=== PATIENT | female | born 1935 | race Caucasian/White ===

== ENCOUNTER → 2017-02-19 | Outpatient (CLI) | payer MEDICARE ==
[~2017-02-19] MED LIST: ACET325T9 PO; ALPR0.5T6 PO; ASPI-482 PO; CHOL200074 PO; LISI-338 PO; NITR0.4T22 SL; OMEP20TA8 PO; PRAV40TA PO; SPIR1TAB PO
--- NOTE | 2017-02-19 14:09 | RAD ---
DATE: 02/19/2017 EXAM: MAMMO CARLY SCREENING BILATERAL HISTORY: Routine screening COMPARISON: 02/04/2016 This study was interpreted with the benefit of Computerized Aided Detection (CAD). FINDINGS: Breast Density: HETERO The breast parenchyma Is heterogeneouslyy dense, which could reduce sensitivity of mammography. Breast parenchyma level C. There are no dominant suspicious masses, suspicious microcalcifications or evidence of architectural distortion. IMPRESSION: Benign findings BI-RADS CATEGORY: 2 BENIGN FINDING RECOMMENDED FOLLOW-UP: 12M 12 MONTH FOLLOW-UP PQRS compliance statement: Patient information was entered into a reminder system with a target due date 02/19/2018 for the next mammogram. Mammography is a sensitive method for finding small breast cancers, but it does not detect them all and is not a substitute for careful clinical examination. A negative mammogram does not negate a clinically suspicious finding and should not result in delay in biopsying a clinically suspicious abnormality. "Our facility is accredited by the [employer] Mammography [employer]."
--- NOTE | 2017-02-19 15:53 | RAD ---
Bone densitometry scan, 02/19/2017: History: Osteopenia The lumbar spine and right hip were examined utilizing a DEXA technique. The bone mineral density in the lumbar spine as measured from the L1-L4 levels is 1.07 g/sq cm. This yields a T score of -0.9 which is in the normal range. The T score has improved since 12/26/2014 at which time it was -1.5. The total T score at the right hip is -1.1, compatible with osteopenia. This is unchanged since and 12/26/2014 study. IMPRESSION: 1. The lumbar spine bone mineral density measurement has improved and is now in the normal range. 2. Unchanged minimal osteopenia at the right hip.
== END | disposition home or self-care (01) ==
LOC: MAMMO 08:49
PROVIDERS: ATTEND Physician Assistant Medical
DX: Z12.31 Encounter for screening mammogram for malignant neoplasm of breast (principal); M85.88 Other specified disorders of bone density and structure, other site
CPT/HCPCS: 77063; 77080; G0202; 77067

== ENCOUNTER → 2017-06-09 | Outpatient (CLI) | payer MEDICARE ==
[~2017-06-09] MED LIST changes: +IOHEXOL 300 MG/ML 75 ML VIAL. IV ONE
--- NOTE | 2017-06-09 11:57 | RAD ---
CT abdomen and pelvis with contrast Indication: right upper quad pain for a week, hx hernia repair Omni 300 75cc Omni 240 30cc. . Technique: Intravenous contrast is given. Oral contrast was given. Comparison:None available Exposure: One or more of the following individualized dose reduction techniques were utilized for this examination: 1. Automated exposure control 2. Adjustment of the mA and/or kV according to patient size 3. Use of iterative reconstruction technique. FINDINGS: Lower thorax: Coronary artery calcifications. Pneumoperitoneum:No gross pneumoperitoneum. Liver: Unremarkable Spleen: Unremarkable Pancreas: Unremarkable Adrenals:No evidence of mass. Kidneys:Unremarkable Gallbladder: No calcified stone Aorta: Abdominal aorta is nonaneurysmal Lymph nodes: Mildly enlarged retroperitoneal lymph nodes are identified, measuring up to 14 mm diameter. GI tract: Small hiatal hernia. No bowel obstruction. Colonic diverticulosis. No evidence of acute colitis. The lower rectum is not included on the exam. Appendix:Visualized, appears within normal limits. Ascites: No gross ascites. Urinary bladder: Not opacified, but no apparent abnormality. No evidence of pelvic mass. Bones: Degenerative changes of the spine. IMPRESSION: 1. Mild retroperitoneal lymph node enlargement is nonspecific. Inflammatory, infectious or neoplastic etiology can be considered. 2. Colonic diverticulosis, without evidence of an acute colitis. 3. Small hiatal hernia. Electronically signed by: Rakesh Jain MD (06/09/2017 11:53 AM) [facility]
== END | disposition home or self-care (01) ==
LOC: CT 10:06
PROVIDERS: ATTEND Physician Assistant Medical
DX: K57.30 Diverticulosis of large intestine without perforation or abscess without bleeding (principal); K44.9 Diaphragmatic hernia without obstruction or gangrene
CPT/HCPCS: 74177; Q9967

== ENCOUNTER → 2017-07-17 | Outpatient (CLI) | payer MEDICARE ==
[~2017-07-17] MED LIST changes: -IOHEXOL 300 MG/ML 75 ML VIAL. IV ONE
--- NOTE | 2017-07-17 10:24 | RAD ---
Right upper quadrant abdominal ultrasound, 07/17/2017: History: Right upper quadrant pain The gallbladder is within normal limits in size. There is no sonographic evidence of cholelithiasis. The gallbladder armstrong are not thickened. The common hepatic duct at the rabia hepatis level measures approximately 5 mm. More distally it measures 7 mm. This is not considered to be enlarged. No intrahepatic bile duct dilatation is seen. There is no evidence of a hepatic mass. The kidneys show no evidence of obstruction or mass. IMPRESSION: No significant gallbladder abnormality is detected.
== END | disposition home or self-care (01) ==
LOC: US 08:18
PROVIDERS: ATTEND Surgery
DX: R10.11 Right upper quadrant pain (principal)
CPT/HCPCS: 76705

== ENCOUNTER → 2018-02-05 | Outpatient (CLI) | payer MEDICARE ==
--- NOTE | 2018-02-05 11:27 | RAD ---
EXAM: CT Abdomen without IV contrast CLINICAL HISTORY: Abdominal Pain . Enlarged Lymph Nodes On Prior Study. COMPARISON: CT 06/09/2017 TECHNIQUE: Helical CT of the abdomen without intravenous contrast. Axial, coronal and sagittal reformatted images were generated. PQRS compliance statement - One or more of the following individualized dose reduction techniques were utilized for this study: 1. Automated exposure control 2. Adjustment of the mA and/or kV according to patient size 3. Use of iterative reconstruction technique FINDINGS: Lack of intravenous contrast limits evaluation of solid organs, vasculature, and lymph nodes. Lower chest: Small to moderate-sized hiatal hernia. Leads are seen within the right heart. A mitral annular calcifications are seen. Abdomen: Liver is not enlarged. No focal liver lesion gallbladder is normal. Spleen is unremarkable. Adrenal glands are normal. Kidneys are normal in size and shape. No definite renal lesion. No hydronephrosis. Visualized small and large bowel are normal in caliber. Colonic diverticula are seen. Minimal fat infiltration is seen about a few left lower quadrant diverticula today's exam only partially included on the [id number] (series 2 image [id number]). Duodenal diverticulum is noted. Prominent retroperitoneal lymph nodes are seen, grossly stable to borderline decreased in size. For example a 1.1 x 0.8 cm retroperitoneal lymph node measured 1.4 cm x 1 on prior. No ascites within the upper abdomen. Small fat-containing periumbilical hernia is seen. Atherosclerotic calcifications of aorta are seen. Bones: Degenerative changes of the spine are seen. Mild leftward curvature of the spine. No suspicious or aggressive osseous lesion is definitively identified. IMPRESSION: 1. A few mildly prominent retroperitoneal lymph nodes are seen, grossly stable to borderline decrease in size. These may be reactive or sequela of infectious/inflammatory process. Given lack of interval enlargement, neoplastic process is felt to be less likely. 2. Small to moderate hiatal hernia. 3. Colonic diverticulosis. Mild fat infiltration in the left lower quadrant about these diverticula is only partially seen, suspicious for colonic diverticulitis, this can be correlated with patient's symptoms. Electronically signed by: Kaiser Murillo MD (02/05/2018 11:24 AM) [id number]
== END | disposition home or self-care (01) ==
LOC: CT 09:29
PROVIDERS: ATTEND Physician Assistant Medical
DX: K44.9 Diaphragmatic hernia without obstruction or gangrene (principal); K57.30 Diverticulosis of large intestine without perforation or abscess without bleeding; K57.10 Diverticulosis of small intestine without perforation or abscess without bleeding; K42.9 Umbilical hernia without obstruction or gangrene; I70.0 Atherosclerosis of aorta; M43.8X6 Other specified deforming dorsopathies, lumbar region; M47.896 Other spondylosis, lumbar region
CPT/HCPCS: 74150

== ENCOUNTER → 2018-02-22 | Outpatient (CLI) | payer MEDICARE ==
--- NOTE | 2018-02-22 12:45 | RAD ---
DATE: 02/22/2018 EXAM: MAMMO CARLY SCREENING BILATERAL HISTORY: Routine screening COMPARISON: Previous mammogram from 2017 and 2016. This study was interpreted with the benefit of Computerized Aided Detection (CAD). FINDINGS: Breast Density: SCATTERED The breast parenchyma shows scattered fibroglandular densities. Breast parenchyma level B. The skin and nipples are within normal limits. Benign-appearing bilateral calcifications. No suspicious ossifications, spiculated mass or area of architectural distortion. Scattered nodular densities are seen in the bilateral breasts which are stable from previous mammogram. IMPRESSION: No mammographic evidence margins. Stable mammogram. BI-RADS CATEGORY: 2 BENIGN FINDING(S) RECOMMENDED FOLLOW-UP: 12M 12 MONTH FOLLOW-UP PQRS compliance statement: Patient information was entered into a reminder system with a target due date for the next mammogram. Mammography is a sensitive method for finding small breast cancers, but it does not detect them all and is not a substitute for careful clinical examination. A negative mammogram does not negate a clinically suspicious finding and should not result in delay in biopsying a clinically suspicious abnormality. "Our facility is accredited by the [employer] Mammography Program."
== END | disposition home or self-care (01) ==
LOC: MAMMO 08:34
PROVIDERS: ATTEND Physician Assistant Medical
DX: Z12.31 Encounter for screening mammogram for malignant neoplasm of breast (principal)
CPT/HCPCS: 77063; 77067

== ENCOUNTER → 2018-03-04 | Outpatient (CLI) | payer MEDICARE ==
[~2018-03-04] MED LIST changes: +IOHEXOL 240 MG/ML 50ML VIAL. ONE
[2018-03-04 10:03] LABS: CREATININE 1.1 mg/dL (0.6-1.0); GFR 47.8
[2018-03-04] MEDS: IOHEXOL 300 MG/ML 75 ML VIAL. IV ONE (10:45)
--- NOTE | 2018-03-04 13:23 | RAD ---
CT abdomen and pelvis with contrast 03/04/2018 CLINICAL INDICATION: Diffuse abdominal pain COMPARISON: CT abdomen and pelvis 02/05/2018, 05/30/2017 TECHNIQUE: Multiple CT images of the abdomen and pelvis were obtained following the intravenous ministration of 60 mL Omnipaque 300. *One or more of the following individualized dose reduction techniques were utilized for this examination: 1. Automated exposure control. 2. Adjustment of the mA and/or kV according to patient size. 3. Use of iterative reconstruction technique. FINDINGS: Heart size is normal partial visualization of a transvenous cardiac conduction leads. Mitral annular calcifications are noted. Because lung bases are clear. Minimal focal fatty infiltration the liver adjacent to the falciform. Gallbladder, spleen, adrenal glands and pancreas are unremarkable. There is malrotation of the right kidney with a tiny probable cyst. No hydronephrosis. Left kidney unremarkable. Abdominal aorta normal in caliber with moderate aortoiliac calcified atheromatous disease. Small hiatal hernia. Medial projecting 2nd portion duodenal diverticulum without diverticulitis. Appendix is normal in appearance. No bowel obstruction. Moderate distal colonic diverticulosis without acute diverticulitis. No abdominal free fluid or pneumoperitoneum. Prior ventral hernia repair with mesh. No retroperitoneal or mesenteric lymphadenopathy. Bladder decompressed. Prior hysterectomy with the vaginal cuff unremarkable. There are no destructive osseous lesions. Levoconvex lumbar scoliosis and multilevel lumbar spondylosis. IMPRESSION: 1. No CT evidence of acute abdominal or pelvic process. 2. Diverticulosis without diverticulitis. 3. Small hiatal hernia. Electronically signed by: Moo Mahmood MD (03/04/2018 1:20 PM) [id number]
== END | disposition home or self-care (01) ==
LOC: CT 09:24
PROVIDERS: ATTEND Internal Medicine Gastroenterology
DX: K44.9 Diaphragmatic hernia without obstruction or gangrene (principal); K57.10 Diverticulosis of small intestine without perforation or abscess without bleeding; K57.30 Diverticulosis of large intestine without perforation or abscess without bleeding; K76.0 Fatty (change of) liver, not elsewhere classified; I70.0 Atherosclerosis of aorta; M47.816 Spondylosis without myelopathy or radiculopathy, lumbar region; Q63.2 Ectopic kidney; M41.86 Other forms of scoliosis, lumbar region
CPT/HCPCS: 36415; 74177; 82565; 84520; Q9966; Q9967

== ENCOUNTER → 2018-03-30 | Outpatient (CLI) | payer MEDICARE ==
[~2018-03-30] MED LIST changes: +BARIUM SULFATE 60% 355 ML SUSP PO ONE; -IOHEXOL 240 MG/ML 50ML VIAL. ONE
--- NOTE | 2018-03-30 12:52 | RAD ---
Small bowel follow-through study 03/30/2018 CLINICAL HISTORY: Diffuse abdominal pain for 4 months. TECHNIQUE: A small bowel follow-through study was performed under radiographic control. No fluoroscopy was performed. No spot radiographs were obtained. FINDINGS: Comparison is made to a CT scan of the abdomen and pelvis dated 03/04/2018. An AP digital radiograph of the abdomen/pelvis was obtained as a civil estimator. This demonstrates a nonobstructive bowel gas pattern. A moderate amount stool is seen throughout the colon. Atherosclerotic calcification of the abdominal aorta and its branches is noted. Degenerative changes are seen involving the lower thoracic and throughout the lumbar spine along with both hips. Very mild S-shaped curvature of the thoracolumbar spine is seen. The mucosal pattern of the duodenum, jejunum, ileum and terminal ileum is within normal limits. The small bowel transit time is within normal limits. No small bowel wall thickening is seen. No extrinsic mass effect upon the small bowel is seen. IMPRESSION: Negative study. Electronically signed by: Dileep Reyes MD (03/30/2018 12:48 PM) [facility]
== END | disposition home or self-care (01) ==
LOC: RAD 07:44
PROVIDERS: ATTEND Internal Medicine Gastroenterology
DX: R10.84 Generalized abdominal pain (principal)
CPT/HCPCS: 74250

== ENCOUNTER → 2018-04-22 | Outpatient (CLI) | payer MEDICARE ==
[~2018-04-22] MED LIST changes: -BARIUM SULFATE 60% 355 ML SUSP PO ONE; +IOHEXOL 300 MG/ML 75 ML VIAL. IV ONE
--- NOTE | 2018-04-22 09:18 | RAD ---
Examination: CT angiography abdomen and pelvis HISTORY: History of continued epigastric pain, right lower quadrant abdominal pain COMPARISON: CT abdomen pelvis from 03/04/2018 TECHNIQUE: Axial CT angiographic images of the abdomen pelvis were performed with IV contrast. Coronal and sagittal 3-D MIP reformats are performed. Exposure: One or more of the following individualized dose reduction techniques were utilized for this examination: 1. Automated exposure control 2. Adjustment of the mA and/or kV according to patient size 3. Use of iterative reconstruction technique FINDINGS: Mild bibasilar lung atelectasis. No evidence of free air identified in the abdomen. The visualized liver, spleen, adrenals grossly appears unremarkable. The gallbladder is mildly distended. Small hiatal hernia is identified. The visualized pancreas grossly appears unremarkable. Small duodenal diverticulum identified. The small bowel is nondilated. Feces and gas noted in the colon. Multiple colonic diverticulosis identified. Moderate aortic atherosclerosis. The visualized celiac artery, superior mesenteric artery, inferior mesenteric artery are patent. The hepatic artery directly arises from the aorta with mild stenosis at its origin. The bilateral renal arteries are patent. The bilateral kidneys enhance symmetrically. The bilateral common iliac arteries are patent. The bilateral internal iliac arteries, external iliac arteries demonstrate moderate atherosclerotic calcifications. Moderate degenerative changes lumbar spine. Minimal anterolisthesis of L4 on L5. Multilevel disc bulges identified throughout the visualized thoracolumbar spine. IMPRESSION: 1. Moderate aortic atherosclerosis. 2. 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 3. Small hiatal hernia. 4. Multiple colonic diverticulosis. Electronically signed by: Lawrence Hurst MD (04/22/2018 9:14 AM) [place] [id number]
== END | disposition home or self-care (01) ==
LOC: CT 07:23
PROVIDERS: ATTEND Internal Medicine Gastroenterology
DX: K44.9 Diaphragmatic hernia without obstruction or gangrene (principal); K57.10 Diverticulosis of small intestine without perforation or abscess without bleeding; K57.30 Diverticulosis of large intestine without perforation or abscess without bleeding; K82.8 Other specified diseases of gallbladder; J98.11 Atelectasis; I70.0 Atherosclerosis of aorta; I70.8 Atherosclerosis of other arteries; M47.816 Spondylosis without myelopathy or radiculopathy, lumbar region; F41.9 Anxiety disorder, unspecified; K59.00 Constipation, unspecified
CPT/HCPCS: 74174; Q9967

== ENCOUNTER 2018-05-24 12:29 | Emergency (ER) | payer MEDICARE ==
[~2018-05-24] VITALS: Ht 157.5 cm; Wt 63.5 kg
[~2018-05-24 12:29] MED LIST changes: -IOHEXOL 300 MG/ML 75 ML VIAL. IV ONE
--- NOTE | 2018-05-24 12:38 | PHYS DOC ---
Past History Past Medical History: Anxiety, CAD, Hypertension Past Surgical History: Pacemaker Smoking: Non-smoker Alcohol Use: None Drug Use: None Adult General Chief Complaint Chief Complaint: MECHANICAL FALL HPI HPI Patient is a 82 year old female who presents with complaining of 2 falls today. Patient states she fell on ice on her driveway prior to arrival to ER and landed on her back of her head and then tried to get up and walk but had another fall on ice without loss of consciousness patient complaining of marked pain in her head and mother pain lumbar area without focal neuro deficit, nausea and vomiting, blurred vision, chest pain, extremity pain. Patient walked to emergency room by herself and does not want to have pain medication. Review of Systems Review of Systems Constitutional: Denies fever or chills [] Eyes: Denies change in visual acuity, redness, or eye pain [] HENT: Denies nasal congestion or sore throat [] Respiratory: Denies cough or shortness of breath [] Cardiovascular: No additional information not addressed in HPI [] GI: Denies abdominal pain, nausea, vomiting, bloody stools or diarrhea [] : Denies dysuria or hematuria [] Musculoskeletal: Reports back pain, denies joint pain [] Integument: Denies rash or skin lesions [] Neurologic: Reports headache, denies focal weakness or sensory changes [] Endocrine: Denies polyuria or polydipsia [] All other systems were reviewed and found to be within normal limits, except as documented in this note. Allergies Allergies Allergies Coded Allergies Type Severity Reaction Last Updated Verified carvedilol Allergy Intermediate 10/23/13 Yes cimetidine Allergy Intermediate 10/23/13 Yes digoxin Allergy Intermediate 10/23/13 Yes duloxetine Allergy Intermediate 10/23/13 Yes ezetimibe Allergy Intermediate 10/23/13 Yes hydrochlorothiazide Allergy Intermediate 10/23/13 Yes ibandronate sodium Allergy Intermediate 10/23/13 Yes isosorbide Allergy Intermediate Shortness of Air 10/23/13 Yes levofloxacin Allergy Intermediate 10/23/13 Yes levothyroxine sodium Allergy Intermediate 10/23/13 Yes meloxicam Allergy Intermediate 10/23/13 Yes metoclopramide Allergy Intermediate 10/23/13 Yes metoprolol Allergy Intermediate 10/23/13 Yes nebivolol Allergy Intermediate 10/23/13 Yes nitrofurantoin Allergy Intermediate 10/23/13 Yes propranolol Allergy Intermediate 10/23/13 Yes ramipril Allergy Intermediate 10/23/13 Yes rofecoxib Allergy Intermediate 10/23/13 Yes rosuvastatin Allergy Intermediate 10/23/13 Yes salsalate Allergy Intermediate 10/23/13 Yes sulfamethazine Allergy Intermediate Anaphylaxis 10/23/13 Yes sulfamethoxazole Allergy Intermediate 10/23/13 Yes tegaserod Allergy Intermediate 10/23/13 Yes ticagrelor Allergy Intermediate 10/23/13 Yes trimethoprim Allergy Intermediate 10/23/13 Yes verapamil Allergy Intermediate 10/23/13 Yes Physical Exam Physical Exam Constitutional: Well developed, well nourished, mild distress, non-toxic appearance. [] HENT: Normocephalic, contusion of occipital scalp, bilateral external ears normal, oropharynx moist, no oral exudates, nose normal. [] Eyes: PERRLA, EOMI, conjunctiva normal, no discharge. [] Neck: Normal range of motion, no tenderness, supple, no stridor. [] Cardiovascular:Heart rate regular rhythm, no murmur [] Lungs & Thorax: Bilateral breath sounds clear to auscultation [] Abdomen: Bowel sounds normal, soft, no tenderness, no masses, no pulsatile masses. [] Skin: Warm, dry, no erythema, no rash. [] Back: No midline tenderness, no contusion, painful range of motion, no CVA tenderness. [] Extremities: No tenderness, no cyanosis, no clubbing, ROM intact, no edema. [] Neurologic: Alert and oriented X 3, normal motor function, normal sensory function, no focal deficits noted. [] Psychologic: Affect normal, judgement normal, mood normal. [] EKG EKG [] Radiology/Procedures Radiology/Procedures [address] [id number] IMAGING REPORT Signed PATIENT: ISABEL HERNANDEZ ACCOUNT: [id number] : 1935 LOCATION: ER AGE: 82 SEX: F EXAM STATUS: REG ER ORD. PHYSICIAN: PASCUAL BAZAN MD REASON: fall on ice PROCEDURE: CT HEAD AND CERVICAL SPINE WO PQRS Compliance Statement: One or more of the following individualized dose reduction techniques were utilized for this examination: 1. Automated exposure control 2. Adjustment of the mA and/or kV according to patient size 3. Use of iterative reconstruction technique CT head and cervical spine without contrast 05/24/2018 1:[address] lumbar spine without contrast INDICATION: Fall on ice COMPARISON: Lumbar spine radiograph May 24, 2015 TECHNIQUE: Multiple axial CT images of the head were obtained from skull base through the vertex without intravenous contrast. Multiple axial CT images of the cervical spine were obtained without intravenous contrast. Coronal and sagittal reformats are provided. FINDINGS: Head: Ventricles, sulci and basal cisterns are within normal limits. There is no hydrocephalus. Betancourt-white matter differentiation is normal. There is no acute intracranial hemorrhage. There is no mass, mass effect or midline shift. Posterior fossa is normal in appearance. Visualized portions of the orbits are normal within exception of bilateral lens replacement. Paranasal sinuses are well aerated. Mastoid air cells are well aerated. Scalp and calvaria are normal. Cervical spine: There is straightening of the normal cervical lordosis without significant spondylolisthesis. Skull base is intact. Craniocervical junction is normal in appearance. Atlantoaxial articulation is normal. Vertebral body heights are maintained without evidence for acute fracture. There is moderate disc height loss at C5-C6 and C6-C7 with endplate irregularity, remodeling and moderate anterior marginal osteophytosis. At C5-C6, there is a posterior disc osteophyte complex with mild facet arthropathy and moderate uncovertebral joint disease resulting in mild bilateral neuroforaminal stenosis. At C6-C7, there is a posterior disc osteophyte complex with moderate left facet arthropathy, moderate uncovertebral joint disease and mild to moderate bilateral neuroforaminal stenosis. There is mild spinal canal stenosis. There is no prevertebral soft tissue swelling. Thyroid gland is normal in appearance. Visualized portions of the lung apices are normal without evidence for suspicious pulmonary nodule or infiltrate. Lumbar spine: Alignment of the lumbar spine is normal. Vertebral body heights are maintained. No definite compression fracture is identified. There is mild disc height loss at L1-L2 with moderate intramarginal osteophytosis and endplate remodeling. There is moderate disc height loss at L5-S1 vacuum disc phenomenon and moderate anterior marginal osteophytosis. There is moderate facet arthropathy lower lumbar spine. Transverse processes are intact. Visualized portions of the sacrum appear intact. There is levoconvex curvature of the lumbar spine. Abdominal aorta is normal in caliber with moderate calcified atheromatous plaque. There is a small duodenal diverticulum. Small extrarenal pelvis is identified on the right. 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 L1-L2: There is a mild disc bulge. Mild facet arthropathy. No significant neuroforaminal stenosis. Mild spinal canal stenosis. L2-L3: There is a moderate disc bulge. There is moderate facet arthropathy ligamentum flavum infolding. There is mild bilateral neuroforaminal stenosis. Mild to moderate spinal canal stenosis. L3-L4: There is a moderate disc bulge with right central disc protrusion. There is moderate facet arthropathy ligamentum flavum infolding. There is mild bilateral neuroforaminal stenosis. Mild spinal canal stenosis. L4-L5: There is a moderate disc bulge. There is moderate facet arthropathy, right greater than left. There is mild bilateral neuroforaminal stenosis. Mild spinal canal stenosis. L5-S1: There is a mild disc bulge. There is severe left and moderate facet arthropathy. There is severe left neuroforaminal stenosis. No spinal canal stenosis. IMPRESSION: 1. No acute intracranial hemorrhage. 2. No acute fracture or malalignment of the cervical spine. Mild cervical spondylosis. 3. No acute fracture of the lumbar spine. Moderate degenerative changes of the lumbar spine are present, as described in detail above. Electronically signed by: Alanna Tavera MD (05/24/2018 1:47 PM) [facility] DICTATED AND SIGNED BY: ALANNA TAVERA MD DATE: 05/24/18 [id number] CC: PASCUAL BAZAN MD; GARFIELD BURRELL ~ Course & Med Decision Making Course & Med Decision Making Pertinent Imaging studies reviewed. (See chart for details) Evaluation of patient in ER showed 82-year-old female patient with a mechanical fall on ice with complaining of pain in her lower back and head. Patient had unremarkable CT of head, cervical spine, lumbosacral spine and did not want pain medication in ER. Patient states she plans to take Tylenol and doesn't want a prescription for pain medication at home. Patient was advised to apply ice on the affected area and follow up with her primary care physician. Dragon Disclaimer Dragon Disclaimer This electronic medical record was generated, in whole or in part, using a voice recognition dictation system. Departure Departure: Impression: Primary Impression: Head injury due to trauma Additional Impressions: Acute lumbosacral myofascial strain Fall from slipping on ice Disposition: 01 HOME, SELF-CARE (at 1430) Condition: IMPROVED Referrals: GARFIELD BURRELL (PCP) Patient Instructions: Head Injury, Adult, Lumbosacral Strain Additional Instructions: Apply ice on the affected area Follow-up with your primary care physician in 3-5 days Return to ER if not getting better Take [id number] Tylenol as needed for pain Problem Qualifiers PASCUAL BAZAN MD May 24, 2018 12:38
--- NOTE | 2018-05-24 13:52 | RAD ---
PQRS Compliance Statement: One or more of the following individualized dose reduction techniques were utilized for this examination: 1. Automated exposure control 2. Adjustment of the mA and/or kV according to patient size 3. Use of iterative reconstruction technique CT head and cervical spine without contrast 05/24/2018 1:[address] lumbar spine without contrast INDICATION: Fall on ice COMPARISON: Lumbar spine radiograph May 24, 2015 TECHNIQUE: Multiple axial CT images of the head were obtained from skull base through the vertex without intravenous contrast. Multiple axial CT images of the cervical spine were obtained without intravenous contrast. Coronal and sagittal reformats are provided. FINDINGS: Head: Ventricles, sulci and basal cisterns are within normal limits. There is no hydrocephalus. Betancourt-white matter differentiation is normal. There is no acute intracranial hemorrhage. There is no mass, mass effect or midline shift. Posterior fossa is normal in appearance. Visualized portions of the orbits are normal within exception of bilateral lens replacement. Paranasal sinuses are well aerated. Mastoid air cells are well aerated. Scalp and calvaria are normal. Cervical spine: There is straightening of the normal cervical lordosis without significant spondylolisthesis. Skull base is intact. Craniocervical junction is normal in appearance. Atlantoaxial articulation is normal. Vertebral body heights are maintained without evidence for acute fracture. There is moderate disc height loss at C5-C6 and C6-C7 with endplate irregularity, remodeling and moderate anterior marginal osteophytosis. At C5-C6, there is a posterior disc osteophyte complex with mild facet arthropathy and moderate uncovertebral joint disease resulting in mild bilateral neuroforaminal stenosis. At C6-C7, there is a posterior disc osteophyte complex with moderate left facet arthropathy, moderate uncovertebral joint disease and mild to moderate bilateral neuroforaminal stenosis. There is mild spinal canal stenosis. There is no prevertebral soft tissue swelling. Thyroid gland is normal in appearance. Visualized portions of the lung apices are normal without evidence for suspicious pulmonary nodule or infiltrate. Lumbar spine: Alignment of the lumbar spine is normal. Vertebral body heights are maintained. No definite compression fracture is identified. There is mild disc height loss at L1-L2 with moderate intramarginal osteophytosis and endplate remodeling. There is moderate disc height loss at L5-S1 vacuum disc phenomenon and moderate anterior marginal osteophytosis. There is moderate facet arthropathy lower lumbar spine. Transverse processes are intact. Visualized portions of the sacrum appear intact. There is levoconvex curvature of the lumbar spine. Abdominal aorta is normal in caliber with moderate calcified atheromatous plaque. There is a small duodenal diverticulum. Small extrarenal pelvis is identified on the right. 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 L1-L2: There is a mild disc bulge. Mild facet arthropathy. No significant neuroforaminal stenosis. Mild spinal canal stenosis. L2-L3: There is a moderate disc bulge. There is moderate facet arthropathy ligamentum flavum infolding. There is mild bilateral neuroforaminal stenosis. Mild to moderate spinal canal stenosis. L3-L4: There is a moderate disc bulge with right central disc protrusion. There is moderate facet arthropathy ligamentum flavum infolding. There is mild bilateral neuroforaminal stenosis. Mild spinal canal stenosis. L4-L5: There is a moderate disc bulge. There is moderate facet arthropathy, right greater than left. There is mild bilateral neuroforaminal stenosis. Mild spinal canal stenosis. L5-S1: There is a mild disc bulge. There is severe left and moderate facet arthropathy. There is severe left neuroforaminal stenosis. No spinal canal stenosis. IMPRESSION: 1. No acute intracranial hemorrhage. 2. No acute fracture or malalignment of the cervical spine. Mild cervical spondylosis. 3. No acute fracture of the lumbar spine. Moderate degenerative changes of the lumbar spine are present, as described in detail above. Electronically signed by: Sachi Rain MD (05/24/2018 1:47 PM) [facility]
[2018-05-24 14:25] VITALS: BP 106/54
== END 2018-05-24 14:37 | disposition home or self-care (01) ==
LOC: ER 12:29
DX: S39.012A Strain of muscle, fascia and tendon of lower back, initial encounter (principal); S00.03XA Contusion of scalp, initial encounter; F41.9 Anxiety disorder, unspecified; I10 Essential (primary) hypertension; I25.10 Atherosclerotic heart disease of native coronary artery without angina pectoris; Z95.0 Presence of cardiac pacemaker; Z88.8 Allergy status to other drugs, medicaments and biological substances; Z88.1 Allergy status to other antibiotic agents; W00.0XXA Fall on same level due to ice and snow, initial encounter; Y93.89 Activity, other specified; Y92.89 Other specified places as the place of occurrence of the external cause; Y99.8 Other external cause status
CPT/HCPCS: 70450; 72125; 72131; 99284-25

== ENCOUNTER → 2018-07-05 | Outpatient (CLI) | payer MEDICARE ==
--- NOTE | 2018-07-05 11:04 | RAD ---
CT head without contrast dated 07/05/2018. Comparison made to 05/24/2018. Clinical data indication: Altered level of consciousness. TECHNIQUE: Per contiguous axial imaging the head was performed from skull base to vertex. No contrast administered. One or more of the following individualized dose reduction techniques were utilized for this examination: 1. Automated exposure control 2. Adjustment of the mA and/or kV according to patient size 3. Use of iterative reconstruction technique FINDINGS: Ventricles and sulci are mildly prominent for age. No midline shift or mass effect. Minimal patchy low density in the deep/subcortical periventricular white matter. No hemorrhage or extra axial collection. Posterior fossa and brainstem unremarkable. Visualized paranasal sinuses and mastoid air cells are clear. No apparent calvarial abnormality. IMPRESSION: 1. No evidence of acute intracranial hemorrhage or mass. 2. Mild chronic small vessel ischemic changes and atrophy. Electronically signed by: Rakesh Brand MD (07/05/2018 11:01 AM) [facility]
== END | disposition home or self-care (01) ==
LOC: CT 10:11
PROVIDERS: ATTEND Registered Nurse
DX: I67.82 Cerebral ischemia (principal); G31.89 Other specified degenerative diseases of nervous system
CPT/HCPCS: 70450

== ENCOUNTER 2018-10-18 07:44 | Observation (INO) | payer MEDICARE ==
[~2018-10-18] VITALS: Ht 157.5 cm; Wt 62.8 kg
[2018-10-18] MEDS ORDERED: IV NORMAL SALINE 1,000ML 1,000 ML IV SCH (07:50)
--- NOTE | 2018-10-18 08:16 | PHYS DOC ---
Past History Past Medical History: Anxiety, CAD, Cancer, Hypertension, VT, Other Past Surgical History: Coronary Bypass Surgery, Hysterectomy, Pacemaker, Tonsillectomy Smoking: Non-smoker Alcohol Use: None Drug Use: None Adult General Chief Complaint Chief Complaint: chest pain HPI HPI Patient is a 83 year old female who presents with complaint of chest pain. Patient states that she has had recurrent chest pain over the past 3 days. Notes that her current episode started at 0430 this morning. States that awoke her from sleep. Notes pain that is substernal and pressure-like with slight radiation leftward underneath the left breast. Denies shortness of breath, fever, or diaphoresis. Patient has history of coronary artery disease. States that she had a stress test over 2 years ago[address] with Dr[address] Vasquez for cardiology. He states she took 1 baby aspirin this morning and has taken nitroglycerin but states that this has not helped with her pain. Currently rates her pain as 5 out of 10. Review of Systems Review of Systems Constitutional: Denies fever or chills [] Eyes: Denies change in visual acuity, redness, or eye pain [] HENT: Denies nasal congestion or sore throat [] Respiratory: Denies cough or shortness of breath [] Cardiovascular: Chest pain, denies edema[] GI: Denies abdominal pain, nausea, vomiting, bloody stools or diarrhea [] : Denies dysuria or hematuria [] Musculoskeletal: Denies back pain or joint pain [] Integument: Denies rash or skin lesions [] Neurologic: Denies headache, focal weakness or sensory changes [] All other systems were reviewed and found to be within normal limits, except as documented in this note. Current Medications Current Medications Current Medications Medications (Trade) Dose Ordered Sig/[facility] Start Time Stop Time Status Last Admin Dose Admin Aspirin (Children'S Aspirin) 243 mg 1X ONCE 10/18/18 08:20 10/18/18 08:21 Sodium Chloride 1,000 ml @ 125 mls/hr Q8H 10/18/18 07:50 10/18/18 15:49 Allergies Allergies Allergies Coded Allergies Type Severity Reaction Last Updated Verified carvedilol Allergy Intermediate 10/23/13 Yes cimetidine Allergy Intermediate 10/23/13 Yes digoxin Allergy Intermediate 10/23/13 Yes duloxetine Allergy Intermediate 10/23/13 Yes ezetimibe Allergy Intermediate 10/23/13 Yes hydrochlorothiazide Allergy Intermediate 10/23/13 Yes ibandronate sodium Allergy Intermediate 10/23/13 Yes isosorbide Allergy Intermediate Shortness of Air 10/23/13 Yes levofloxacin Allergy Intermediate 10/23/13 Yes levothyroxine sodium Allergy Intermediate 10/23/13 Yes meloxicam Allergy Intermediate 10/23/13 Yes metoclopramide Allergy Intermediate 10/23/13 Yes metoprolol Allergy Intermediate 10/23/13 Yes nebivolol Allergy Intermediate 10/23/13 Yes nitrofurantoin Allergy Intermediate 10/23/13 Yes propranolol Allergy Intermediate 10/23/13 Yes ramipril Allergy Intermediate 10/23/13 Yes rofecoxib Allergy Intermediate 10/23/13 Yes rosuvastatin Allergy Intermediate 10/23/13 Yes salsalate Allergy Intermediate 10/23/13 Yes sulfamethazine Allergy Intermediate Anaphylaxis 10/23/13 Yes sulfamethoxazole Allergy Intermediate 10/23/13 Yes tegaserod Allergy Intermediate 10/23/13 Yes ticagrelor Allergy Intermediate 10/23/13 Yes trimethoprim Allergy Intermediate 10/23/13 Yes verapamil Allergy Intermediate 10/23/13 Yes Physical Exam Physical Exam Constitutional: Alert, afebrile, appears in mild discomfort. [] HENT: Normocephalic, atraumatic, bilateral external ears normal, oropharynx moist, no oral exudates, nose normal. [] Eyes: PERRLA, EOMI, conjunctiva normal, no discharge. [] Neck: Normal range of motion, no tenderness, supple, no stridor. [] Cardiovascular:Heart rate regular rhythm, no murmur [] Lungs & Thorax: Bilateral breath sounds clear to auscultation [] Abdomen: Bowel sounds normal, soft, no tenderness, no masses, no pulsatile masses. [] Skin: Warm, dry, no erythema, no rash. [] Back: No tenderness, no CVA tenderness. [] Extremities: No tenderness, no cyanosis, no clubbing, ROM intact, no edema. [] Neurologic: Alert and oriented X 3, normal motor function, normal sensory function, no focal deficits noted. [] Current Patient Data Vital Signs Vital Signs Date Time Temp Pulse Resp B/P (MAP) Pulse Ox O2 Delivery O2 Flow Rate FiO2 10/18/18 08:14 98.1 70 16 94 Room Air Lab Results Laboratory Tests Test 10/18/18 08:11 White Blood Count 6.7 x10^3/uL Red Blood Count 4.50 x10^6/uL Hemoglobin 13.0 g/dL Hematocrit 38.1 % Mean Corpuscular Volume 85 fL Mean Corpuscular Hemoglobin 29 pg Mean Corpuscular Hemoglobin Concent 34 g/dL Red Cell Distribution Width 14.4 % Platelet Count 255 x10^3/uL Neutrophils (%) (Auto) 58 % Lymphocytes (%) (Auto) 26 % Monocytes (%) (Auto) 10 % Eosinophils (%) (Auto) 5 % Basophils (%) (Auto) 1 % Neutrophils # (Auto) 3.9 x10^3uL Lymphocytes # (Auto) 1.7 x10^3/uL Monocytes # (Auto) 0.7 x10^3/uL Eosinophils # (Auto) 0.4 x10^3/uL Basophils # (Auto) 0.1 x10^3/uL Sodium Level 139 mmol/L Potassium Level 4.1 mmol/L Chloride Level 102 mmol/L Carbon Dioxide Level 27 mmol/L Anion Gap 10 Blood Urea Nitrogen 21 mg/dL Creatinine 1.1 mg/dL Estimated GFR (Cockcroft-Gault) 47.7 BUN/Creatinine Ratio 19 Glucose Level 108 mg/dL Calcium Level 10.1 mg/dL Magnesium Level 1.7 mg/dL Total Bilirubin 0.5 mg/dL Aspartate Amino Transf (AST/SGOT) 21 U/L Alanine Aminotransferase (ALT/SGPT) 21 U/L Alkaline Phosphatase 109 U/L Creatine Kinase 65 U/L Creatine Kinase MB (Mass) 0.8 ng/mL Creatine Kinase MB Relative Index 1.2 % Troponin I Quantitative < 0.017 ng/mL Total Protein 7.5 g/dL Albumin 4.0 g/dL Albumin/Globulin Ratio 1.1 Current Medications Medications (Trade) Dose Ordered Sig/Jing Route PRN Reason Start Time Stop Time Status Last Admin Dose Admin Aspirin (Children'S Aspirin) 243 mg 1X ONCE PO 10/18/18 08:20 10/18/18 08:21 DC Sodium Chloride 1,000 ml @ 125 mls/hr Q8H IV 10/18/18 07:50 10/18/18 15:49 EKG EKG Interpreted by me: Heart rate 72, atrially paced rhythm, normal axis, no acute ST/T-wave abnormalities present[] Radiology/Procedures Radiology/Procedures [address] [id number] IMAGING REPORT Signed PATIENT: ISABEL HERNANDEZ ACCOUNT: [id number] : 1935 LOCATION: ER AGE: 83 SEX: F EXAM STATUS: REG ER ORD. PHYSICIAN: JAYLA RODRIGUEZ MD REASON: chest pain PROCEDURE: PORTABLE CHEST 1V Examination: PORTABLE CHEST 1V History: Chest pain Comparison/Correlation: 10/23/2013 AP view of the chest Findings: Portable frontal view chest was obtained. Dual-lead left-sided pacemaker is present. Heart size is borderline enlarged similar to the prior exam. Pulmonary vasculature is mildly congested. No pneumothorax. No definite effusion. Small hiatal hernia is present. Impression: No active disease. Small hiatal hernia. Electronically signed by: Rip Fox MD (10/18/2018 8:41 AM) [id number] DICTATED AND SIGNED BY: RIP FOX MD DATE: 10/18/18 0841 CC: JAYLA RODRIGUEZ MD; GARFIELD BURRELL ~ [] Course & Med Decision Making Course & Med Decision Making Pertinent Labs and Imaging studies reviewed. (See chart for details) HEART score is 5, placing patient in moderate risk category for major acute cardiac event. Admission for noninvasive testing indicated at this time. The patient was given 243 mg of oral aspirin to complete a full dose given she took a baby aspirin prior to arrival. I spoke with Dr. Moore who will accept care of patient in hospital. I also spoke with TREY Ramirez for the cardiology service, to notify them of consultation on patient in hospital.[] Dragon Disclaimer Dragon Disclaimer This electronic medical record was generated, in whole or in part, using a voice recognition dictation system. Departure Departure: Impression: Primary Impression: Chest pain Additional Impressions: Coronary artery disease Hypomagnesemia Disposition: ADMITTED INPATIENT Admitting Physician: Eduardo Moore Condition: STABLE Referrals: GARFIELD BURRELL (PCP) Problem Qualifiers Primary Impression: Chest pain Chest pain type: unspecified Qualified Codes: R07.9 - Chest pain, unspecified Additional Impressions: Coronary artery disease Coronary Disease-Associated Artery/Lesion type: unspecified vessel or lesion type [place] vs. transplanted heart: [place] heart Associated angina: with unspecified angina Qualified Codes: I25.119 - Atherosclerotic heart disease of [place] coronary artery with unspecified angina pectoris JAYLA RODRIGUEZ MD Oct 18, 2018 08:16
[2018-10-18] MEDS ORDERED: ASPIRIN 81 MG TAB.CHEW PO ONE (08:20)
[2018-10-18 08:25] LABS: BASO # 0.1 x10^3/uL (0.0-0.2); BASO % 1 % (0-3); EOS # 0.4 x10^3/uL (0.0-0.7); EOS % 5 % (0-3); HEMATOCRIT 38.1 % (36.0-47.0); LYMPH # 1.7 x10^3/uL (1.0-4.8); LYMPH % 26 % (24-48); MEAN CORPUSCULAR HEMOGLOBIN 29 pg (25-35); MEAN CORPUSCULAR HGB CONC 34 g/dL (31-37); MEAN CORPUSCULAR VOLUME 85 fL (79-100); MONO # 0.7 x10^3/uL (0.0-1.1); MONO % 10 % (0-9); NEUT # 3.9 x10^3uL (1.8-7.7); NEUT % 58 % (31-73); PLATELET COUNT 255 x10^3/uL (140-400); RED CELL DISTRIBUTION WIDTH 14.4 % (11.5-14.5); WHITE BLOOD COUNT 6.7 x10^3/uL (4.0-11.0)
--- NOTE | 2018-10-18 08:44 | RAD ---
Examination: PORTABLE CHEST 1V History: Chest pain Comparison/Correlation: 10/23/2013 AP view of the chest Findings: Portable frontal view chest was obtained. Dual-lead left-sided pacemaker is present. Heart size is borderline enlarged similar to the prior exam. Pulmonary vasculature is mildly congested. No pneumothorax. No definite effusion. Small hiatal hernia is present. Impression: No active disease. Small hiatal hernia. Electronically signed by: Rip Blas MD (10/18/2018 8:41 AM) [id number]
[2018-10-18 08:49] LABS: ALBUMIN/GLOBULIN RATIO 1.1 (1.0-1.7); CALCIUM 10.1 mg/dL (8.5-10.1); CREATININE 1.1 mg/dL (0.6-1.0); GFR 47.7; MAGNESIUM 1.7 mg/dL (1.8-2.4); POTASSIUM 4.1 mmol/L (3.5-5.1); TOTAL BILIRUBIN 0.5 mg/dL (0.2-1.0); TOTAL PROTEIN 7.5 g/dL (6.4-8.2)
[2018-10-18] MEDS ORDERED: ONDANSETRON PF 4 MG/2 ML VIAL. IV PRN (09:15)
[2018-10-18] MEDS ORDERED: ACETAMINOPHEN 325 MG TABLET PO PRN ×2 (09:15→15:45)
[2018-10-18] MEDS ORDERED: MAGNESIUM SULFATE 1GM 100 ML IV ONE (09:30)
[2018-10-18 10:31] VITALS: BP 148/78
[2018-10-18] MEDS ORDERED: LINA145C PO (11:16)
[2018-10-18] MEDS ORDERED: CALCIUM + MAGNESIUM PO (11:16)
[2018-10-18] MEDS ORDERED: DICL100G18 TP (11:16)
[2018-10-18] MEDS ORDERED: CARV3.12 PO (11:16)
[2018-10-18] MEDS ORDERED: ASCO500T3 PO (11:16)
[2018-10-18] MEDS ORDERED: TRAM50TA PO (11:16)
[2018-10-18] MEDS ORDERED: NITROGLYCERIN PATCH TOP (11:16)
[2018-10-18] MEDS ORDERED: BIMA2.5D EACHEYE (11:16)
[2018-10-18] MEDS ORDERED: TIZA4TAB PO (11:16)
[2018-10-18] MEDS ORDERED: CRESTOR20 MG PO (11:16)
[2018-10-18] MEDS ORDERED: CYAN10005 PO (11:16)
[2018-10-18] MEDS ORDERED: CITA20TA6 PO (11:16)
[2018-10-18] MEDS: IV NORMAL SALINE 1,000ML 1,000 ML IV SCH ×2 (12:40→17:08)
[2018-10-18] MEDS ORDERED: MAALOX:LIDO:APAP 6:2:1 ORAL SUSPENSION 180 ML BOTTLE. PO PRN (14:45)
[2018-10-18] MEDS ORDERED: PANTOPRAZOLE 40 MG TABLET. PO ONE (14:45)
[2018-10-18 15:32] VITALS: BP 120/72
[2018-10-18] MEDS ORDERED: traMADol 50 MG TABLET PO PRN (15:45)
[2018-10-18] MEDS ORDERED: tiZANidine 4 MG TABLET. PO PRN (15:45)
[2018-10-18] MEDS ORDERED: NITROGLYCERIN 0.4 MG TOP PRN (15:45)
[2018-10-18] MEDS ORDERED: NITROGLYCERIN SUBLINGUAL 0.4 MG BOTTLE OF 25. SL PRN (15:45)
[2018-10-18] MEDS ORDERED: DICLOFENAC SODIUM 1% TOPICAL GEL 100GM TUBE. TP PRN (15:45)
[2018-10-18] MEDS ORDERED: LINACLOTIDE 145 MCG CAPSULE. PO PRN (15:45)
[2018-10-18] MEDS ORDERED: ALPRAZolam 0.5 MG TABLET PO PRN (16:00)
--- NOTE | 2018-10-18 17:12 | CARD ---
MR#: [id number] Date of Study: 10/18/2018 Ordering Physician: HERI CONWAY, Referring Physician: SHELLIE MCWILLIAMS Tech: Melba Vidales RDCS APPROVED REPORT EXAM: Two-dimensional and M-mode echocardiogram with Doppler and color Doppler. Other Information Quality : Good INDICATION Cardiac Disease: CAD Chest Pain Pacemaker 2D DIMENSIONS Left Atrium(2D)4.3 (1.6-4.0cm)IVSd1.2 (0.7-1.1cm) Aortic Root(2D)2.7 (2.0-3.7cm)LVDd4.6 (3.9-5.9cm) LVOT Diameter2.0 (1.8-2.4cm)PWd1.2 (0.7-1.1cm) LVDs3.5 (2.5-4.0cm)FS (%) 16.8 % SV35.0 mlLVEF(%)35.2 (>50%) Aortic Valve AoV Peak Thomas.185.4cm/sAoV VTI39.3cm AO Peak GR.13.7mmHgAO Mean GR.8mmHg JANET (VTI)1.61cm2 Mitral Valve MV E Ahokkipm093.8cm/sMV DECEL [id number] MV A Bvmzlbdb22.3cm/sE/A Ratio1.2 Tricuspid Valve TR P. Wnijvtuf472hi/sRAP [id number] TR Peak Gr.42aqToVADT22wlIn LEFT VENTRICLE The left ventricle is normal size. There is mild concentric left ventricular hypertrophy. The left ve ntricular systolic function is normal and the ejection fraction is within normal range. The Ejection Fraction is 55%. There is normal LV segmental wall motion. Transmitral Doppler flow pattern is Grade I-abnormal relaxation pattern. RIGHT VENTRICLE The right ventricle is normal size. The right ventricular systolic function is normal. There is a pac emaker lead in the right ventricle. ATRIA The left atrium is mildly dilated. The right atrium size is normal. A pacemaker is seen in the right atrium consistent with history. The interatrial septum is intact with no evidence for an atrial septa l defect or patent foramen ovale as noted on 2-D or Doppler imaging. AORTIC VALVE Not well visualized. Doppler and Color Flow revealed no significant aortic regurgitation. There is no significant aortic valvular stenosis. MITRAL VALVE The mitral valve is calcified but opens well. Mitral annular calcification is mild. There is no evide nce of mitral valve prolapse. There is no mitral valve stenosis. Doppler and Color-flow revealed trac e mitral regurgitation. TRICUSPID VALVE The tricuspid valve is normal in structure and function. Doppler and Color Flow revealed trace to mil d tricuspid regurgitation. There is mild pulmonary hypertension. The PA pressure was estimated at 35 mmHg. There is no tricuspid valve stenosis. PULMONIC VALVE The pulmonic valve is not well visualized. Doppler and Color Flow revealed no pulmonic valvular regur gitation. There is no pulmonic valvular stenosis. GREAT VESSELS The aortic root is normal in size. The ascending aorta is normal in size. The IVC is dilated and angel apses > 50%. PERICARDIAL EFFUSION There is no evidence of significant pericardial effusion. Critical Notification Critical Value: No <Conclusion> The left ventricular systolic function is normal and the ejection fraction is within normal range. Th e Ejection Fraction is 55%. There is normal LV segmental wall motion. There is a pacemaker lead in the right ventricle. Technically difficult study Signed by : Heri Conway, Electronically Approved : 10/18/2018 17:11:55
[2018-10-18] MEDS: CARVEDILOL 3.125 MG TABLET PO SCH (17:17)
--- NOTE | 2018-10-18 17:23 | PDOC ---
PROVIDER NOTE PROVIDER NOTE PROVIDER NOTE CARDIOLOGY CONSULTATION NOTE: full note dicated. HERI CONWAY MD Oct 18, 2018 17:23
--- NOTE | 2018-10-18 17:47 | CONS ---
DATE OF CONSULTATION: 10/18/2018 REASON FOR CONSULTATION: Chest pain. HISTORY OF PRESENT ILLNESS: The patient is a pleasant 83-year-old woman with past medical history as noted below, presents to the hospital in the setting of chest pain. She apparently had been having chest pain for the last 2-3 days and was trying to take some nitroglycerin, which did not relieve her chest pain and therefore, she presented to the ER. Upon arrival to the ER, blood pressure and other vital signs were unremarkable. Her EKG was unremarkable and she was admitted for further evaluation and treatment. She reports improvement of chest pain after being given some PPI and lidocaine and Maalox by mouth. She denies any recent discomfort in her chest such as angina with exertion, dyspnea, orthopnea or PND. No syncope or palpitations. She reports compliance with her medications including carvedilol, rosuvastatin and spironolactone/hydrochlorothiazide. PAST MEDICAL HISTORY: 1. Coronary artery disease, status post 7 stents, last being in 2011. 2. Hypertension. 3. Dyslipidemia. 4. Chronic gastroesophageal reflux disease history with esophageal stricture, status post dilation. SOCIAL HISTORY: The patient lives by herself. Denies any alcohol, tobacco or illicit drug use. ALLERGIES: MULTIPLE MEDICATIONS. Please see chart. CURRENT CARDIAC MEDICATIONS: Notable for carvedilol, rosuvastatin, aspirin and spironolactone/hydrochlorothiazide. Please see medication administration record for full details. FAMILY HISTORY: Noncontributory. REVIEW OF SYSTEMS: Negative for 10 out of 14 systems reviewed, unless otherwise mentioned above in HPI. PHYSICAL EXAMINATION: VITAL SIGNS: Afebrile, blood pressure 131/58, 96% on room air, respiratory rate 16, pulse 72. GENERAL: She is alert and oriented, no acute distress. HEAD AND NECK: Unremarkable. CARDIAC: Regular rate and rhythm with a soft 3/6 systolic murmur consistent with aortic sclerosis. LUNGS: Clear to auscultation bilaterally anteriorly. NEUROLOGIC: No focal deficits. MUSCULOSKELETAL: No trauma. ABDOMEN: Soft, nontender, nondistended. EXTREMITIES: No clubbing, cyanosis or edema. DIAGNOSTIC STUDIES: Hemoglobin, platelets within normal limits. Troponin negative x 3. EKG is unremarkable. Echocardiogram demonstrates normal LV systolic function without any significant without any significant wall motion abnormalities. IMPRESSION: 1. Atypical chest pain: Differential diagnosis is broad given her prior history of coronary artery disease, but at this present time given her negative EKG, normal enzymes and improvement in pain with lidocaine and Maalox, this is more likely to be gastroesophageal rather than truly anginal in nature. She also did not have any significant relief with nitroglycerin. 2. Hypertension. 3. Dyslipidemia. RECOMMENDATIONS: 1. Continue monitoring overnight for relief of chest pain at this present time. 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 2. We will have her follow up with Dr. Vargas for a routine cardiac evaluation. If she has any recurrent chest pain, at that time consider further evaluation as needed. Thank you for this consultation. HERI CONWAY MD DR: BRYAN/nts JOB#: [id number] / [id number]
[2018-10-18 19:11] VITALS: BP 113/72
[2018-10-18] MEDS ORDERED: ATORVASTATIN CALCIUM 20 MG TABLET PO SCH (21:00)
[2018-10-18] MEDS ORDERED: LATANOPROST 0.005% OPHTH SOLUTION 2.5ML BOTTLE. OU SCH (21:00)
[2018-10-18 22:34] VITALS: BP 138/83
--- NOTE | 2018-10-18 22:53 | HP ---
ADMIT DATE: 10/18/2018 HISTORY OF PRESENT ILLNESS: The patient is an 83-year-old female patient who came to the Emergency Room complaining of epigastric pain. Pain is mostly in the epigastric area, does not go through and through, is not associated with any nausea or vomiting, no shortness of breath, no diaphoresis, does not radiate to her ____. The patient denied any nausea, vomiting. It is constant since it started last Thursday. Exertion does not aggravate it nor taking a deep breath or changing position. The patient has extensive cardiac history and she has coronary artery disease, myocardial infarction and multiple stents in total of 7 of them and because of that, the patient was concerned as the pain has awakened her from sleep. The patient has followed with Dr. Vargas. The patient took about a total of 5 nitroglycerin over the last 3 days. She rates this pain about 5/10. She was extensively evaluated in the Emergency Room. Her EKG showed that she was in sinus rhythm with a heart rate of 72 beats per minute. ____ rhythm with normal axis, no acute ST-T changes. She has at least 2 sets of cardiac enzymes when I saw her that were negative and was admitted to rule out myocardial infarction, check her fasting lipid profile, to consult the Cardiology team for further evaluation and treatment. PAST MEDICAL HISTORY: Significant for coronary artery disease, status post myocardial infarction, status post stent deployment x 7. She is status post pacemaker, hypertension, hyperlipidemia, esophageal strictures status post dilatation numerous times and generalized osteoarthritis. PAST SURGICAL HISTORY: Significant for PCI with stent deployment x 7, tonsillectomy, adenoidectomy, removal of cyst from her left breast, vein stripping, partial hysterectomy, pacemaker placement, bilateral cataract extraction, bladder sling surgery, esophagogastroduodenoscopy and esophageal stricture dilatation and colonoscopy. ALLERGIES: She is allergic to CARVEDILOL, CIMETIDINE, DIGOXIN, DULOXETINE, ZETIA, HYDROCHLOROTHIAZIDE, IBANDRONATE SODIUM, ISOSORBIDE, LEVOFLOXACIN, LEVOTHYROXINE SODIUM. MEDICATIONS: She is currently on following medications: She is on tizanidine 4 mg every 8 hours, rosuvastatin calcium 20 mg daily, nitroglycerin 0.4 mg sublingually every 5 minutes, carvedilol 3.125 mg twice a day with meals, spironolactone/hydrochlorothiazide, Aldactazide half a tablet daily. She is on aspirin 81 mg once a day, diclofenac sodium 100 grams gel applied 1 gram topically 4 times a day, tramadol 50 mg twice a day, acetaminophen 650 mg every 6 hours, citalopram hydrobromide 20 mg daily, alprazolam 0.5 mg daily, Lumigan 1 drop to both eyes at bedtime, linaclotide 145 mcg capsule daily, cyanocobalamin 1000 mcg tablet once a day, ascorbic acid 500 mg daily, cholecalciferol and vitamin D3 2000 International Units once a day, calcium and magnesium 1 tablet daily, nitroglycerin 0.4 mg sublingually every 5 minutes. FAMILY HISTORY: She has one brother who is younger and 2 sisters, one older and one younger, both healthy. She has a sister who of myocardial infarction. Her mother at age of 79 secondary to myocardial infarction. Her father at the age of 89 because of probably some form of sarcoma. SOCIAL HISTORY: She is , has 2 daughters and 1 son. She smoked for 6 years. Drinks alcohol occasionally. 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 REVIEW OF SYSTEMS: The patient denied any blurring of vision. She has bilateral cataract extraction, but denied any glaucoma or macular degeneration. Denied any earache, tinnitus or sensorineural deafness. Denied any nosebleeds, stuffy nose or postnasal drip. Denied any sore throat, sore tongue, toothache, hoarseness of voice or difficulty swallowing. I emphasized this question again, I asked her whether she has any difficulty swallowing and she said after her esophageal dilatation recently, she has no problem with liquid or solid. Denied any nausea, vomiting, diarrhea or constipation. Denied any hematemesis, melena or hematochezia. Denied any dysuria, frequency or hematuria. She has basically an epigastric pain radiating to the left mammary area, but denied any shortness of breath. Denied any orthopnea or paroxysmal nocturnal dyspnea. She has cough with scanty whitish sputum. Denied any hemoptysis. Denied any dizziness, lightheadedness, or vertigo. Denied any chills, rigors or fever. PHYSICAL EXAMINATION: GENERAL: On arrival to the Emergency Room, she looked well and was clearly in no apparent respiratory distress, pale. No jaundice, cyanosis or thyromegaly. No jugular venous distension. No limb edema. VITAL SIGNS: Her heart rate was 70, blood pressure was 131/58, temperature was 98, respiratory rate was 16, and oxygen saturation was 96%. HEAD, EYES, EARS, NOSE, THROAT: Showed she is normocephalic, atraumatic. NECK: Supple. HEART: Showed normal first and second heart sounds with no gallop, rub or murmur. CHEST: Clear to auscultation. No crepitation or rhonchi. ABDOMEN: Distended, soft tenderness mostly in the epigastric area. There is definitely no guarding or rigidity. No organomegaly. All hernial orifices intact. Bowel sounds normal. NEUROLOGIC: She was awake, alert, responding appropriately. All cranial nerves intact. EXTREMITIES: She moves extremities without difficulty. She ambulates without assistance or assistive devices. LABORATORY DATA: Her lab work as of this morning showed serum sodium 139, potassium 4.1, chloride 102, bicarbonate 27, anion gap of 10, BUN 21, creatinine 1.1, estimated GFR was 47 mL per minute. Her glucose was 108, calcium was 10.1, magnesium was 1.7. Total bilirubin, AST, ALT, alkaline phosphatase were normal. Her total protein was 7.5, albumin was 4. Her first set of cardiac enzyme showed troponin to be less than 0.017. Her white cell count was 6700, hemoglobin 13, hematocrit 38, MCV 85 and platelet count 255,000 with normal manual differential. She did have a chest x-ray, which basically showed that there is a dual lead left-sided pacemaker is present. Heart size is borderline enlarged similar to the prior exam. Pulmonary vasculature is mildly congested. No pneumothorax, no definite effusion, small hiatal hernia is present. ASSESSMENT: The patient is an 83-year-old female patient who has extensive cardiac history. She has a total of 7 stents, I believe all of them done by Dr. Gonzalze according to her, who started having this epigastric and lower chest pain started last Thursday. She has constantly same intensity, it is not aggravated or relieved by anything. She took a total of 5 sublingual nitroglycerin without much improvement. She does have stricture of esophagus that was treated about 4 times or more according to her, but that was done recently by ____ and she denied any problem with dysphagia to solids or liquids. PLAN: My plan is to do 2 more sets of cardiac enzyme, check her fasting lipid profile and echocardiogram and consult the director gift. I will also add serum lipase to rule out the possibility of pancreatitis. SHELLIE MCWILILAMS MD DR: JULIA/coreen JOB#: [id number] / [id number]
[2018-10-19] MEDS: IV NORMAL SALINE 1,000ML 1,000 ML IV SCH (00:11)
--- NOTE | 2018-10-19 04:21 | PN ---
DATE: 10/18/2018 SUBJECTIVE: The patient is resting slightly propped up in bed, continued to complain of pain in the epigastric area. We did actually start her on velvet glove and Protonix and apparently that has helped her pain. She has 3 sets of cardiac enzymes that ruled out myocardial infarction. Her lipase was normal at 239. She was evaluated by the Cardiology team and has had an echocardiogram, which apparently was reportedly normal. She was seen by the media promoter, recommended observing her for another overnight to make sure that she is responding well to the proton pump inhibitor. PHYSICAL EXAMINATION: GENERAL: When I examined her this afternoon, she looked well and was clearly in no apparent respiratory distress. No pallor, jaundice, cyanosis, or thyromegaly. No jugular venous distension. No limb edema. VITAL SIGNS: Her heart rate was 70, blood pressure was 120/72, temperature was 97.7, respiratory rate was 18 and oxygen saturation was 96%. Rest of clinical examination is stable. LABORATORY DATA: Her lab work this morning showed a serum sodium 139, potassium 4.1, chloride 102, bicarbonate 27, anion gap of 10, BUN 21, creatinine 1.1, estimated GFR was 47 mL per minute. Her glucose 108, calcium was 10, magnesium was 1.7. She has 3 sets of cardiac enzymes is negative, ruled out myocardial infarction. ASSESSMENT AND PLAN: 1. Chest pain, likely due to gastroesophageal reflux disease. The patient responded well velvet glove and Protonix. We will continue with that. She has a multitude of other medical problems including coronary artery disease, hypertension, hyperlipidemia, esophageal stricture, status post dilatation. SHELLIE MCWILLIAMS MD DR: JULIA/coreen JOB#: [id number] / [id number]
[2018-10-19 05:16] VITALS: BP 119/87
[2018-10-19 06:11] LABS: CALCIUM 10.2 mg/dL (8.5-10.1); CREATININE 0.9 mg/dL (0.6-1.0); GFR 60.1; POTASSIUM 4.1 mmol/L (3.5-5.1)
[2018-10-19 06:25] LABS: BASO # 0.1 x10^3/uL (0.0-0.2); BASO % 1 % (0-3); EOS # 0.3 x10^3/uL (0.0-0.7); EOS % 4 % (0-3); HEMATOCRIT 39.5 % (36.0-47.0); HEMOGLOBIN 13.4 g/dL (12.0-15.5); LYMPH # 1.8 x10^3/uL (1.0-4.8); LYMPH % 27 % (24-48); MEAN CORPUSCULAR HEMOGLOBIN 29 pg (25-35); MEAN CORPUSCULAR HGB CONC 34 g/dL (31-37); MEAN CORPUSCULAR VOLUME 85 fL (79-100); MONO # 0.6 x10^3/uL (0.0-1.1); MONO % 9 % (0-9); NEUT # 4.1 x10^3uL (1.8-7.7); NEUT % 60 % (31-73); PLATELET COUNT 254 x10^3/uL (140-400); RED BLOOD COUNT 4.62 x10^6/uL (3.50-5.40); RED CELL DISTRIBUTION WIDTH 14.6 % (11.5-14.5); WHITE BLOOD COUNT 6.9 x10^3/uL (4.0-11.0)
--- NOTE | 2018-10-19 07:16 | EKG ---
[address] [address] Test Date: 2018-10-18 Test Time: 07:58:07 Pat Name: ISABEL HERNANDEZ Department: Room: 109 A Gender: F [employer]: : 1935 Requested By: JAYLA RODRIGUEZ Order Number: [id number] Reading MD: Measurements Intervals [place] Rate: 72 P: 14 NH: 130 QRS: 45 QRSD: 80 T: 24 QT: 404 QTc: 444 Interpretive Statements SINUS RHYTHM QRS(T) CONTOUR ABNORMALITY CONSIDER ANTEROLATERAL MYOCARDIAL DAMAGE CONSIDER INFERIOR MYOCARDIAL DAMAGE POSSIBLY ABNORMAL ECG RI6.01 No previous ECG available for comparison
[2018-10-19] MEDS ORDERED: PANTOPRAZOLE 40 MG TABLET. PO SCH (07:30)
[2018-10-19] MEDS ORDERED: ASPIRIN 81 MG TAB.CHEW PO SCH (08:00)
[2018-10-19] MEDS: CARVEDILOL 3.125 MG TABLET PO SCH (08:10)
[2018-10-19] MEDS ORDERED: CITALOPRAM 20 MG TABLET. PO SCH (09:00)
[2018-10-19] MEDS ORDERED: NITROGLYCERIN 0.4MG/HR PATCH. TD SCH (09:00)
[2018-10-19] MEDS ORDERED: CHOLECALCIFEROL (VITAMIN D3) 1,000 UNIT TABLET PO SCH (09:00)
[2018-10-19] MEDS ORDERED: CALCIUM PO SCH (09:00)
[2018-10-19] MEDS ORDERED: hydroCHLOROthiazide 12.5 MG CAPSULE PO SCH (09:00)
[2018-10-19] MEDS ORDERED: CYANOCOBALAMIN (VITAMIN B-12) 1,000 MCG TABLET. PO SCH (09:00)
[2018-10-19] MEDS ORDERED: MAGNESIUM PO SCH (09:00)
[2018-10-19] MEDS ORDERED: SPIRONOLACTONE 25 MG TABLET PO SCH (09:00)
[2018-10-19] MEDS ORDERED: ASCORBIC ACID 500 MG TABLET PO SCH (09:00)
[2018-10-19 11:11] VITALS: BP 130/83
[2018-10-19] MEDS ORDERED: MAGN400T22 PO (14:50)
[2018-10-19] MEDS ORDERED: PANT40TA3 PO (14:50)
--- NOTE | 2018-10-19 20:54 | DS ---
DATE OF DISCHARGE: 10/19/2018 HOSPITAL COURSE: The patient is an 83-year-old female patient, who was admitted to the Emergency Room with a complaint of severe epigastric pain is constant, radiating slightly towards the left side, but not through and through to the back. Denied any nausea or vomiting. Denied any shortness of breath or diaphoresis. She has had 3 sets of cardiac enzymes that were negative. Her EKG was unremarkable. She did respond to proton pump inhibitor as well as glove oral suspension. The patient has been up and about, has had no further episode of pain, tolerating her food and therefore, a decision was made to discharge her home to continue on Protonix and also her magnesium was low, so we discharged her also on magnesium oxide. When I saw her this afternoon, she looked well and was clearly in no apparent respiratory distress. No pallor, jaundice, cyanosis, or thyromegaly. No jugular venous distension. No lower limb edema. Her heart rate was 96, blood pressure was 130/83, temperature was 98, respiratory rate was 18 and oxygen saturation was 94%. Rest of clinical exam is stable, has not really changed. Her lab work this morning showed a serum sodium 141, potassium 4.1, chloride 105, bicarbonate 27, anion gap of 9, BUN 17, creatinine was 0.9, estimated GFR was 60 mL per minute. Her glucose was 104, calcium was 7.2. Her white cell count was 6900, hemoglobin 13, hematocrit 39, MCV 85 and platelet count 254,000. She was discharged home to continue on Protonix 40 mg once a day, magnesium oxide 400 mg twice a day. Should continue on all her other medications including Tylenol 650 mg every 6 hours, alprazolam 0.5 mg daily p.r.n. for anxiety, ascorbic acid 500 mg daily, aspirin 81 mg once a day, Lumigan 1 drop to both eyes at bedtime. She is on calcium, magnesium 1 tablet p.o. daily, carvedilol 3.125 mg twice a day, cholecalciferol/vitamin D3 1000 International Units once a day, citalopram hydrobromide 20 mg daily, cyanocobalamin 1000 mcg tablet 1 tablet p.o. daily, diclofenac sodium for Voltaren gel 1 gram topically 4 times a day as needed, linaclotide for Linzess 145 mcg once a day, nitroglycerin 0.4 mg sublingually every 5 minutes, Crestor 20 mg once a day, spironolactone/hydrochlorothiazide for Aldactazide 25/25 tablet, 1 tablet once a day, tizanidine 4 mg every 8 hours and tramadol 50 mg twice a day as needed. FINAL DISCHARGE DIAGNOSES: 1. Chest pain, likely gastroesophageal reflux disease. The patient has responded very well to velvet glove and Protonix. No evidence of myocardial ischemia. The patient has 3 sets of cardiac enzymes that were negative and myocardial infarction was ruled out. 2. Other medical problems include coronary artery disease, status post myocardial infarction, status post stent deployment x 7, hypertension, hyperlipidemia, esophageal stricture, status post dilatation numerous times and generalized osteoarthritis. SHELLIE MCWILLIAMS MD DR: JULIA/coreen JOB#: [id number] / [id number]
== END 2018-10-19 15:55 | disposition home or self-care (01) ==
LOC: ER 07:44 → 1 SOUTH 08:54 → INTOOBSV 08:54
PROVIDERS: ADMIT Internal Medicine; ATTEND Internal Medicine
DX: I25.119 Atherosclerotic heart disease of native coronary artery with unspecified angina pectoris (principal); F41.9 Anxiety disorder, unspecified; I25.10 Atherosclerotic heart disease of native coronary artery without angina pectoris; Z95.1 Presence of aortocoronary bypass graft; Z95.0 Presence of cardiac pacemaker; I25.2 Old myocardial infarction; Z98.890 Other specified postprocedural states; K44.9 Diaphragmatic hernia without obstruction or gangrene; E83.42 Hypomagnesemia; I21.9 Acute myocardial infarction, unspecified; Z82.49 Family history of ischemic heart disease and other diseases of the circulatory system; Z79.82 Long term (current) use of aspirin; Z87.891 Personal history of nicotine dependence; Z90.711 Acquired absence of uterus with remaining cervical stump; Z98.41 Cataract extraction status, right eye; Z98.42 Cataract extraction status, left eye; Z95.5 Presence of coronary angioplasty implant and graft; Z79.899 Other long term (current) drug therapy; M15.9 Polyosteoarthritis, unspecified; K21.9 Gastro-esophageal reflux disease without esophagitis; I10 Essential (primary) hypertension; E78.5 Hyperlipidemia, unspecified; K22.2 Esophageal obstruction
CPT/HCPCS: 36415; 71045; 80048; 80053; 80061; 82553; 83690; 83735; 84484; 85025; 93005; 93306; 96365; 99284; G0378; J3475; 96361; G0379; 99285-25; J7030

== ENCOUNTER → 2018-11-18 | Outpatient (CLI) | payer MEDICARE ==
[2018-10-19 11:11] VITALS: BP 130/83
[~2018-11-18] MED LIST changes: +ASCO500T3 PO; +BIMA2.5D EACHEYE; +CALCIUM + MAGNESIUM PO; +CARV3.12 PO; +CITA20TA6 PO; +CRESTOR20 MG PO; +CYAN10005 PO; +DICL100G18 TP; +LINA145C PO; +MAGN400T22 PO; +NITROGLYCERIN PATCH TOP; +PANT40TA3 PO; +TIZA4TAB PO; +TRAM50TA PO
--- NOTE | 2018-11-18 16:25 | RAD ---
EXAM: AP and lateral views of both knees DATE: 11/18/2018 12:00 AM INDICATION: Knee pain bilaterally COMPARISON: No Prior FINDINGS: Left knee: No evidence of acute fracture or dislocation. Small tibial spine osteophytes are seen. Atherosclerotic vascular calcifications are seen. No evidence of acute fracture or dislocation. No knee joint effusion. Right knee: No evidence of acute fracture or dislocation. Small tricompartmental osteophytes are seen with mild medial compartment joint space narrowing. Patellar enthesopathy. No knee joint effusion. Atherosclerotic vascular calcifications are seen. No right knee joint effusion. IMPRESSION: Bilateral knee joint osteoarthritis. No evidence of acute fracture or dislocation. Electronically signed by: Kaiser Murillo MD (11/18/2018 4:22 PM) [facility]
== END | disposition home or self-care (01) ==
LOC: PMG 10:04
DX: M17.0 Bilateral primary osteoarthritis of knee (principal); I70.0 Atherosclerosis of aorta; M25.762 Osteophyte, left knee; M25.761 Osteophyte, right knee; M76.51 Patellar tendinitis, right knee
CPT/HCPCS: 73560

== ENCOUNTER → 2019-02-24 | Outpatient (CLI) | payer MEDICARE ==
[~2019-02-24] MED LIST changes: +CYAN-25 PO; -CYAN10005 PO; -TIZA4TAB PO; +TIZA4TAB2 PO
--- NOTE | 2019-02-24 10:32 | RAD ---
DATE: 02/24/2019 8:10 AM EXAM: MAMMO CARLY SCREENING BILATERAL HISTORY screening COMPARISON: February 22, 2018 Bilateral CC and MLO views of the breasts were performed. Bilateral breast tomosynthesis was performed in CC and MLO projections. This study was interpreted with the benefit of Computerized Aided Detection (CAD). FINDINGS: Breast Density: SCATTERED The breast parenchyma shows scattered fibroglandular densities. Breast parenchyma level B Unchanged left upper outer breast mass compared to prior likely intraparenchymal lymph node. Left-sided pacemaker, unchanged. No suspicious masses, microcalcifications or architectural distortion is present to suggest malignancy in either breast. The visualized axillae are unremarkable. IMPRESSION: No mammographic evidence of malignancy. BI-RADS CATEGORY: 2 BENIGN FINDING(S) RECOMMENDED FOLLOW-UP: 12M 12 MONTH FOLLOW-UP Annual screening mammography is recommended, unless clinically indicated sooner based on symptoms or change in physical exam. PQRS compliance statement: Patient information was entered into a reminder system with a target due date one year for the next mammogram. Mammography is a sensitive method for finding small breast cancers, but it does not detect them all and is not a substitute for careful clinical examination. A negative mammogram does not negate a clinically suspicious finding and should not result in delay in biopsying a clinically suspicious abnormality. "Our facility is accredited by the [employer] Mammography Program."
== END | disposition home or self-care (01) ==
LOC: MAMMO 08:02
PROVIDERS: ATTEND Physician Assistant Medical
DX: Z12.31 Encounter for screening mammogram for malignant neoplasm of breast (principal)
CPT/HCPCS: 77063; 77067

== ENCOUNTER → 2019-08-02 | Outpatient (CLI) | payer MEDICARE ==
--- NOTE | 2019-08-02 14:54 | RAD ---
CHEST PA LATERAL History: Shortness of breath. Comparison: October 18, 2018 Findings: Hyperinflation. No consolidation or pleural effusion. Mildly enlarged heart size, unchanged. No pneumothorax. Stable left-sided pacemaker. Small hiatal hernia. Impression: 1. Hyperinflation. No new consolidation. 2. Mild cardiomegaly, unchanged. Electronically signed by: Ja Mcbride DO (08/02/2019 2:51 PM) [id number]
[2019-08-02 16:27] LABS: BASO # 0.1 x10^3/uL (0.0-0.2); BASO % 1 % (0-3); EOS # 0.5 x10^3/uL (0.0-0.7); EOS % 7 % (0-3); HEMATOCRIT 38.7 % (36.0-47.0); HEMOGLOBIN 13.1 g/dL (12.0-15.5); LYMPH # 1.9 x10^3/uL (1.0-4.8); LYMPH % 29 % (24-48); MEAN CORPUSCULAR HEMOGLOBIN 29 pg (25-35); MEAN CORPUSCULAR HGB CONC 34 g/dL (31-37); MEAN CORPUSCULAR VOLUME 86 fL (79-100); MONO # 0.8 x10^3/uL (0.0-1.1); MONO % 12 % (0-9); NEUT # 3.3 x10^3uL (1.8-7.7); NEUT % 51 % (31-73); PLATELET COUNT 234 x10^3/uL (140-400); RED CELL DISTRIBUTION WIDTH 15.1 % (11.5-14.5); WHITE BLOOD COUNT 6.4 x10^3/uL (4.0-11.0)
[2019-08-02 16:39] LABS: ALBUMIN 3.8 g/dL (3.4-5.0); ALBUMIN/GLOBULIN RATIO 1.1 (1.0-1.7); CALCIUM 9.7 mg/dL (8.5-10.1); CREATININE 0.9 mg/dL (0.6-1.0); GFR 59.9; POTASSIUM 3.7 mmol/L (3.5-5.1); TOTAL BILIRUBIN 0.5 mg/dL (0.2-1.0); TOTAL PROTEIN 7.4 g/dL (6.4-8.2)
== END | disposition home or self-care (01) ==
LOC: DXRAD 14:31
PROVIDERS: ATTEND Physician Assistant Medical
DX: R06.02 Shortness of breath (principal); I51.7 Cardiomegaly; K44.9 Diaphragmatic hernia without obstruction or gangrene
CPT/HCPCS: 36415; 71046; 80053; 83880; 85025

== ENCOUNTER → 2019-09-20 | Outpatient (CLI) | payer MEDICARE ==
--- NOTE | 2019-09-20 16:09 | RAD ---
EXAM: 3 Views Right Shoulder DATE: 09/20/2019 12:00 AM INDICATION: Right shoulder pain COMPARISON: No Prior FINDINGS: There is no evidence for acute fracture or dislocation. AC joint is congruent. Glenohumeral joint degenerative changes are seen. Humeral head is not high riding. Heart is enlarged, partially visualized. IMPRESSION: 1. No acute fracture or dislocation. 2. Right glenohumeral joint degenerative changes are seen. Electronically signed by: Kaiser Murillo MD (09/20/2019 4:05 PM) [id number]
--- NOTE | 2019-09-20 16:39 | RAD ---
THORACIC SPINE 3V History: Shoulder and back pain Comparison: August 02, 2019 lateral view of the chest Findings: 3 views of the thoracic spine are submitted. There is possible mild superior height loss of what may be the T5 vertebral body not clearly visualized on previous exam. There is atherosclerotic calcification of the thoracic aorta. There is dual lead left electronic cardiac device. There is degenerative disc disease of visualized inferior cervical spine. Impression: 1. There is suggestion of degree of superior height loss of what may be the T5 vertebral body. If there is pain referable to this level, further evaluation with CT and/or bone scan is recommended (unless the pacemaker is MR compatible). Electronically signed by: Ramírez Wells MD (09/20/2019 4:36 PM) [id number]
== END ==
LOC: PMG 14:08
PROVIDERS: ATTEND Physician Assistant
DX: M19.011 Primary osteoarthritis, right shoulder (principal); I70.0 Atherosclerosis of aorta; M50.30 Other cervical disc degeneration, unspecified cervical region; I51.7 Cardiomegaly
CPT/HCPCS: 72072; 73030

== ENCOUNTER → 2019-09-23 | Outpatient (CLI) | payer MEDICARE ==
--- NOTE | 2019-09-23 09:08 | RAD ---
CLINICAL HISTORY: Abdominal pain COMPARISON: None available. TECHNIQUE: The abdominal aorta and main branches were examined using grayscale, color and spectral Doppler evaluation.. FINDINGS: Atheromatous plaque with intermittent calcifications are noted of the abdominal aorta without aneurysmal dilatation. The proximal abdominal aorta measures 1.7 cm in AP dimension and has a peak systolic velocity of 92 cm/s. The mid abdominal aorta measures 1.6 cm in AP dimension and has a peak systolic velocity of 97 cm/s The distal abdominal aorta measures 1.5 cm in AP dimension and has a peak systolic velocity of 10 3 cm/s. Peak systolic velocity of the celiac artery is 190 cm/s at the origin Peak systolic velocity of the superior mesenteric artery is 312 cm/s. Resistive index at the mid hepatic artery measures 0.59 with a peak systolic velocity of 65. IMPRESSION: 1. Elevated peak systolic velocity of the SMA suggests underlying stenosis and can be further assessed by CT angiography. 2. Borderline elevated peak systolic velocity of the origin of the celiac artery may also suggest low-grade stenosis however can also be further assessed by CT angiography. Electronically signed by: Kaiser Murillo MD (09/23/2019 9:06 AM) [id number]
== END | disposition home or self-care (01) ==
LOC: US 08:20
PROVIDERS: ATTEND Internal Medicine Gastroenterology
DX: R10.9 Unspecified abdominal pain (principal)
CPT/HCPCS: 76770

== ENCOUNTER → 2019-10-31 | Outpatient (CLI) | payer MEDICARE ==
--- NOTE | 2019-10-31 13:23 | RAD ---
Right shoulder 3 views. HISTORY: Pain after a fall 3 views were taken of the right shoulder. There is arthritis at the shoulder with spurring on the humeral head. There is no fracture or dislocation or other acute osseous abnormality. IMPRESSION: 1. Arthritis right shoulder. 2. No fracture or dislocation right shoulder. Electronically signed by: Tico Waters MD (10/31/2019 1:20 PM) [facility]
== END ==
LOC: PMG 09:48
PROVIDERS: ATTEND Physician Assistant Medical
DX: M19.011 Primary osteoarthritis, right shoulder (principal); Z91.81 History of falling
CPT/HCPCS: 73030

== ENCOUNTER → 2020-01-18 | Outpatient (CLI) | payer MEDICARE ==
--- NOTE | 2020-01-18 16:27 | RAD ---
Indications: Status post fall. Pain. Three-view right rib detail series and PA view chest x-ray: No acute right rib fracture is evident. Chest x-ray demonstrates no acute lung infiltrate or pleural effusion or pulmonary edema or pneumothorax. Bipolar atrioventricular pacemaker is in place. The heart size is mildly enlarged. Mediastinum and pulmonary vasculature and both gerard are unremarkable. IMPRESSION: No acute right rib fracture. Three-view right shoulder study: No acute fracture or dislocation or lytic process is evident. No AC joint separation is seen. There is mild primary degenerative osteoarthritis of the right AC joint and right glenohumeral joint. IMPRESSION: No acute fracture. Electronically signed by: Stu Villar MD (01/18/2020 4:24 PM) [id number]
== END | disposition home or self-care (01) ==
LOC: DXRAD 10:23
PROVIDERS: ATTEND Physician Assistant Medical
DX: M19.011 Primary osteoarthritis, right shoulder (principal); R07.81 Pleurodynia; I51.7 Cardiomegaly; Z95.0 Presence of cardiac pacemaker
CPT/HCPCS: 71101; 73030

== ENCOUNTER 2020-02-23 10:01 | Emergency (ER) | payer MEDICARE ==
[~2020-02-23] VITALS: Ht 157.5 cm; Wt 67.2 kg
--- NOTE | 2020-02-23 10:33 | PHYS DOC ---
Past History Past Medical History: CAD, Heart Disease Past Surgical History: Pacemaker Additional Past Surgical Histo: STENTS Smoking: Non-smoker Alcohol Use: None Drug Use: None Adult General Chief Complaint Chief Complaint: SHORTNESS OF BREATH HPI HPI Patient is a 84-year-old female who presents for shortness of breath. This is a chronic problem. States this has been ongoing and progressively worsening for past 3 months. Reports symptoms occur most during exertion and when laying flat. Patient was at orthopedic office this morning and reported ongoing shortness of breath, she received a steroid injection in her left knee and subsequently referred to our ER for evaluation. Patient denies any chest pain, fever, falls or any other concerning symptoms at this time. Reports she lives home alone, ambulates up and down her x1 flight of stairs without issue but states that her ability to travel 100 yards without stopping has decreased, states she can only travel 50 yards at best now. No known lower extremity edema. Sites significant heart history, has 7 prior cardiac stents and a pacemaker which she felt has not fired. She has good access to care with primary care physician and local ict security specialist in outpatient setting, has not been to see them in several months Review of Systems Review of Systems Fourteen body systems of review of systems have been reviewed. See HPI for pertinent positives and negative responses, other odom all other systems are negative, non-pertinent or non-contributory Allergies Allergies Allergies Coded Allergies Type Severity Reaction Last Updated Verified carvedilol Allergy Intermediate 10/23/13 Yes cimetidine Allergy Intermediate 10/23/13 Yes digoxin Allergy Intermediate 10/23/13 Yes duloxetine Allergy Intermediate 10/23/13 Yes ezetimibe Allergy Intermediate 10/23/13 Yes hydrochlorothiazide Allergy Intermediate 10/23/13 Yes ibandronate sodium Allergy Intermediate 10/23/13 Yes isosorbide Allergy Intermediate Shortness of Air 10/23/13 Yes levofloxacin Allergy Intermediate 10/23/13 Yes levothyroxine sodium Allergy Intermediate 10/23/13 Yes meloxicam Allergy Intermediate 10/23/13 Yes metoclopramide Allergy Intermediate 10/23/13 Yes metoprolol Allergy Intermediate 10/23/13 Yes nebivolol Allergy Intermediate 10/23/13 Yes nitrofurantoin Allergy Intermediate 10/23/13 Yes propranolol Allergy Intermediate 10/23/13 Yes ramipril Allergy Intermediate 10/23/13 Yes rofecoxib Allergy Intermediate 10/23/13 Yes rosuvastatin Allergy Intermediate 10/23/13 Yes salsalate Allergy Intermediate 10/23/13 Yes sulfamethazine Allergy Intermediate Anaphylaxis 10/23/13 Yes sulfamethoxazole Allergy Intermediate 10/23/13 Yes tegaserod Allergy Intermediate 10/23/13 Yes ticagrelor Allergy Intermediate 10/23/13 Yes trimethoprim Allergy Intermediate 10/23/13 Yes verapamil Allergy Intermediate 10/23/13 Yes Sulfa (Sulfonamide Antibiotics) Allergy Unknown 02/23/20 Yes Physical Exam Physical Exam Constitutional: Well developed, well nourished, no acute distress, non-toxic appearance. HENT: Normocephalic, atraumatic, bilateral external ears normal, oropharynx moist, no oral exudates, nose normal. Eyes: PERRLA, EOMI, conjunctiva normal, no discharge. Neck: Normal range of motion, no tenderness, supple, no stridor. Cardiovascular: Heart rate regular, sinus rhythm, no rubs or gallops. 3+ holosystolic murmur Lungs & Thorax: Bilateral breath sounds clear to auscultation Abdomen: Bowel sounds normal, soft, no tenderness, no masses, no pulsatile masses. Nonsurgical abdomen, no peritoneal signs Skin: Warm, dry, no erythema, no rash. Back: No tenderness, no CVA tenderness. Extremities: No tenderness, no cyanosis, no clubbing, ROM intact, no edema. Neurologic: Alert and oriented X 3, grossly normal motor & sensory function, no focal deficits noted. Psychologic: Affect normal, judgement normal, mood normal. Current Patient Data Vital Signs Vital Signs Date Time Temp Pulse Resp B/P (MAP) Pulse Ox O2 Delivery O2 Flow Rate FiO2 02/23/20 10:16 97.8 63 16 142/69 (93) 96 Room Air Lab Results Laboratory Tests Test 02/23/20 11:00 White Blood Count 9.9 x10^3/uL (4.0-11.0) Red Blood Count 4.14 x10^6/uL (3.50-5.40) Hemoglobin 12.1 g/dL (12.0-15.5) Hematocrit 36.3 % (36.0-47.0) Mean Corpuscular Volume 88 fL (79-100) Mean Corpuscular Hemoglobin 29 pg (25-35) Mean Corpuscular Hemoglobin Concent 33 g/dL (31-37) Red Cell Distribution Width 14.8 % (11.5-14.5) Platelet Count 213 x10^3/uL (140-400) Neutrophils (%) (Auto) 75 % (31-73) Lymphocytes (%) (Auto) 13 % (24-48) Monocytes (%) (Auto) 9 % (0-9) Eosinophils (%) (Auto) 3 % (0-3) Basophils (%) (Auto) 1 % (0-3) Neutrophils # (Auto) 7.4 x10^3uL (1.8-7.7) Lymphocytes # (Auto) 1.3 x10^3/uL (1.0-4.8) Monocytes # (Auto) 0.9 x10^3/uL (0.0-1.1) Eosinophils # (Auto) 0.3 x10^3/uL (0.0-0.7) Basophils # (Auto) 0.0 x10^3/uL (0.0-0.2) Sodium Level 141 mmol/L (136-145) Potassium Level 3.8 mmol/L (3.5-5.1) Chloride Level 104 mmol/L (98-107) Carbon Dioxide Level 27 mmol/L (21-32) Anion Gap 10 (6-14) Blood Urea Nitrogen 25 mg/dL (7-20) Creatinine 1.2 mg/dL (0.6-1.0) Estimated GFR (Cockcroft-Gault) 43.0 BUN/Creatinine Ratio 21 (6-20) Glucose Level 100 mg/dL (70-99) Calcium Level 9.3 mg/dL (8.5-10.1) Total Bilirubin 0.6 mg/dL (0.2-1.0) Aspartate Amino Transf (AST/SGOT) 16 U/L (15-37) Alanine Aminotransferase (ALT/SGPT) 16 U/L (14-59) Alkaline Phosphatase 95 U/L (46-116) Creatine Kinase 63 U/L (26-192) Troponin I Quantitative < 0.017 ng/mL (0-0.055) DJ-Iyp-Y-Type Natriuretic Peptide 1097 pg/mL (0-449) Total Protein 6.8 g/dL (6.4-8.2) Albumin 3.9 g/dL (3.4-5.0) Albumin/Globulin Ratio 1.3 (1.0-1.7) EKG EKG EKG ordered and interpreted by myself at 1035 hrs. as sinus rhythm at 66 bpm unremarkable intervals no axis deviation no STEMI no acute ischemic findings Radiology/Procedures Radiology/Procedures PROCEDURE: PORTABLE CHEST 1V PORTABLE CHEST 1V 02/23/2020 10:41 AM INDICATION: Chest pain COMPARISON: None available TECHNIQUE: Portable frontal view of the chest is provided. FINDINGS: The cardiomediastinal silhouette is similar in appearance. Lungs are clear. Left chest wall cardiac device is identified with leads projecting over the right atrium and right ventricle. There are no significant pleural effusions. There is no pulmonary vascular congestion. No pneumothorax. No suspicious osseous abnormality. IMPRESSION: There is no acute cardiopulmonary process. Electronically signed by: Sachi Rain MD (02/23/2020 11:01 AM) [id number] Heart Score HEART Score for Chest Pain: HEART Score for Chest Pain Response (Comments) Value History Moderately Suspicious 1 ECG Normal 0 Age > 65 2 Risk Factors >3 Risk Factors or Hx CAD 2 Troponin < Normal Limit 0 Total 5 Risk Factors: Risk Factors: DM, Current or recent (<one month) smoker, HTN, HLP, family history of CAD, obesity. Risk Scores: Risk Factors: DM, Current or recent (<one month) smoker, HTN, HLP, family history of CAD, obesity. Course & Med Decision Making Course & Med Decision Making Pertinent Labs and Imaging studies reviewed. (See chart for details) Patient evaluated for shortness of breath. I feel this is worsened CHF, no concern for any acute process right now but I did disclose I could not definitively rule this out without admission for cardiac observation. I recommended this but patient declined Patient has good access to primary care and ict security specialist in outpatient setting, she states she can be seen in upcoming 5 days for outpatient follow-up. I feel this is appropriate. I feel patient needs medication adjustments given her increased exertional dyspnea Joint decision for discharge home at this time. I feel patient is stable as she is ambulatory and has good access to care. She is knowledgeable on chest pain and when to represent for evaluation. Although I recommended admission, patient felt more comfortable following up with ict security specialist Strict return precautions discussed, all questions and concerns addressed prior to ER departure in stable condition Dragon Disclaimer Dragon Disclaimer This electronic medical record was generated, in whole or in part, using a voice recognition dictation system. Departure Departure: Impression: Primary Impression: Exertional dyspnea Additional Impression: CAD (coronary artery disease) Disposition: 01 DC HOME SELF CARE/HOMELESS Condition: STABLE Referrals: GARFIELD BURRELL (PCP) Additional Instructions: As discussed prior to ER departure, please call your primary care physician and ict security specialist first thing after ER departure to schedule outpatient follow-up in upcoming 48 hours As discussed, your work-up today did not show anything acute but I did disclose this might be an acute presentation more concerning pathology and so, Problem Qualifiers EDMAR SMITH DO Feb 23, 2020 10:33
--- NOTE | 2020-02-23 11:04 | RAD ---
PORTABLE CHEST 1V 02/23/2020 10:41 AM INDICATION: Chest pain COMPARISON: None available TECHNIQUE: Portable frontal view of the chest is provided. FINDINGS: The cardiomediastinal silhouette is similar in appearance. Lungs are clear. Left chest wall cardiac device is identified with leads projecting over the right atrium and right ventricle. There are no significant pleural effusions. There is no pulmonary vascular congestion. No pneumothorax. No suspicious osseous abnormality. IMPRESSION: There is no acute cardiopulmonary process. Electronically signed by: Sachi Rain MD (02/23/2020 11:01 AM) [id number]
[2020-02-23 11:25] LABS: BASO % 1 % (0-3); EOS # 0.3 x10^3/uL (0.0-0.7); EOS % 3 % (0-3); HEMATOCRIT 36.3 % (36.0-47.0); HEMOGLOBIN 12.1 g/dL (12.0-15.5); LYMPH # 1.3 x10^3/uL (1.0-4.8); LYMPH % 13 % (24-48); MEAN CORPUSCULAR HEMOGLOBIN 29 pg (25-35); MEAN CORPUSCULAR HGB CONC 33 g/dL (31-37); MEAN CORPUSCULAR VOLUME 88 fL (79-100); MONO # 0.9 x10^3/uL (0.0-1.1); MONO % 9 % (0-9); NEUT # 7.4 x10^3uL (1.8-7.7); NEUT % 75 % (31-73); PLATELET COUNT 213 x10^3/uL (140-400); RED BLOOD COUNT 4.14 x10^6/uL (3.50-5.40); RED CELL DISTRIBUTION WIDTH 14.8 % (11.5-14.5); WHITE BLOOD COUNT 9.9 x10^3/uL (4.0-11.0)
[2020-02-23 11:44] LABS: CALCIUM 9.3 mg/dL (8.5-10.1); CREATININE 1.2 mg/dL (0.6-1.0); POTASSIUM 3.8 mmol/L (3.5-5.1)
[2020-02-23 11:48] LABS: ALBUMIN 3.9 g/dL (3.4-5.0); ALBUMIN/GLOBULIN RATIO 1.3 (1.0-1.7); TOTAL BILIRUBIN 0.6 mg/dL (0.2-1.0); TOTAL PROTEIN 6.8 g/dL (6.4-8.2)
--- NOTE | 2020-02-23 12:42 | EKG ---
[address] [address] Test Date: 2020-02-23 Test Time: 10:25:20 Pat Name: ISABEL HERNANDEZ Department: Room: Gender: F Trucker: JAMAL : 1935 Requested By: EDMAR SMITH Order Number: [id number] Reading MD: Terrance Vidales Measurements Intervals [place] Rate: 66 P: 39 TN: 152 QRS: 54 QRSD: 76 T: 26 QT: 398 QTc: 419 Interpretive Statements ATRIAL PACED RHYTHM Electronically Signed On 02-28-2020 11:20:10 GRANULATOR OPERATOR by Terrance Vidales
[2020-02-23 13:18] VITALS: BP 154/61
== END 2020-02-23 13:17 | disposition home or self-care (01) ==
LOC: ER 10:01
DX: I25.10 Atherosclerotic heart disease of native coronary artery without angina pectoris (principal); R06.02 Shortness of breath; Z95.0 Presence of cardiac pacemaker; Z88.1 Allergy status to other antibiotic agents; Z88.8 Allergy status to other drugs, medicaments and biological substances; Z88.2 Allergy status to sulfonamides
CPT/HCPCS: 36415; 71045; 80053; 82550; 83880; 84484; 85025; 93005; 99285

== ENCOUNTER → 2020-02-24 | Outpatient (CLI) | payer MEDICARE ==
[2020-02-23 13:18] VITALS: BP 154/61
--- NOTE | 2020-02-24 12:00 | RAD ---
DATE: 02/24/2020 9:45 AM EXAM: DIGITAL SCREEN BILAT W/CAD HISTORY: Screening COMPARISON: 02/24/2019, 02/22/2018 Bilateral full field craniocaudal and mediolateral oblique images were obtained using digital technique. This study was interpreted with the benefit of Computerized Aided Detection (CAD). FINDINGS: Breast Density: FATTY The Breast Parenchyma is primarily fatty replaced. Breast parenchyma level density A. Partially imaged left chest pacemaker redemonstrated. No suspicious masses, microcalcifications or architectural distortion is present to suggest malignancy in either breast. The visualized axillae are unremarkable. IMPRESSION: No mammographic evidence of malignancy. BI-RADS CATEGORY: 1 NEGATIVE RECOMMENDED FOLLOW-UP: 12M 12 MONTH FOLLOW-UP Annual screening mammography is recommended, unless clinically indicated sooner based on symptoms or change in physical exam. PQRS compliance statement: Patient information was entered into a reminder system with a target due date for the next mammogram. Mammography is a sensitive method for finding small breast cancers, but it does not detect them all and is not a substitute for careful clinical examination. A negative mammogram does not negate a clinically suspicious finding and should not result in delay in biopsying a clinically suspicious abnormality. "Our facility is accredited by the [employer] Mammography Program."
== END ==
LOC: MAMMO 09:37
PROVIDERS: ATTEND Physician Assistant Medical
DX: Z12.31 Encounter for screening mammogram for malignant neoplasm of breast (principal)
CPT/HCPCS: 77067

== ENCOUNTER 2020-03-20 08:55 | Emergency (ER) | payer MEDICARE ==
[~2020-03-20] VITALS: Ht 157.5 cm; Wt 67.2 kg
[2020-03-20] MEDS ORDERED: ONDANSETRON PF 4 MG/2 ML VIAL. IVP ONE (09:30)
[2020-03-20] MEDS ORDERED: IV NORMAL SALINE 1,000ML 1,000 ML IV ONE (09:30)
[2020-03-20] MEDS ORDERED: PANTOPRAZOLE IV 40 MG VIAL. IVP ONE (09:30)
[2020-03-20 10:01] LABS: BASO # 0.1 x10^3/uL (0.0-0.2); BASO % 1 % (0-3); EOS # 0.2 x10^3/uL (0.0-0.7); EOS % 3 % (0-3); HEMATOCRIT 37.2 % (36.0-47.0); HEMOGLOBIN 12.3 g/dL (12.0-15.5); LYMPH # 1.6 x10^3/uL (1.0-4.8); LYMPH % 24 % (24-48); MEAN CORPUSCULAR HEMOGLOBIN 29 pg (25-35); MEAN CORPUSCULAR HGB CONC 33 g/dL (31-37); MEAN CORPUSCULAR VOLUME 89 fL (79-100); MONO # 0.6 x10^3/uL (0.0-1.1); MONO % 9 % (0-9); NEUT # 4.4 x10^3uL (1.8-7.7); NEUT % 63 % (31-73); PLATELET COUNT 215 x10^3/uL (140-400); RED BLOOD COUNT 4.17 x10^6/uL (3.50-5.40); RED CELL DISTRIBUTION WIDTH 16.1 % (11.5-14.5); WHITE BLOOD COUNT 6.9 x10^3/uL (4.0-11.0)
--- NOTE | 2020-03-20 10:13 | PHYS DOC ---
Past History Past Medical History: CAD, GERD, Heart Disease Past Surgical History: Hysterectomy, Pacemaker Additional Past Surgical Histo: STENTS Smoking: Non-smoker Alcohol Use: None Drug Use: None General Adult EDM: Chief Complaint: ABDOMINAL PAIN HPI: HPI: Patient is a 84 year old female who presents with abdominal pain that began today. Reports 1.5 mo history of black tarry stools. Patient has lost 4 lbs rece ntly and has not had an appetite. History of a "bad heart" and pacemaker. Had surgery for GERD around 2009. Review of Systems: Review of Systems: Review of constitutional: Denies fever or chills Eyes: Denies redness or eye pain HENT: Denies nasal congestion or sore throat Respiratory: Denies cough. Reports some SOA. Cardiovascular: Denies chest pain or palpitations GI: Denies nausea, or vomiting. Reports abdominal pain that began today : Denies dysuria or hematuria. Reports black tarry stools for past 1.5 months Musculoskeletal: Denies back pain or joint pain Integument: Denies rash or skin lesions Neurologic: Denies headache, focal weakness or sensory changes Complete systems were reviewed and found to be within normal limits, except as documented in this note. Current Medications: Current Meds: Current Medications Medications (Trade) Dose Ordered Sig/Jing Start Time Stop Time Status Last Admin Dose Admin Ondansetron HCl (Zofran) 4 mg 1X ONCE 03/20/20 09:30 03/20/20 09:37 DC 03/20/20 09:52 4 MG Pantoprazole Sodium (Protonix Vial) 40 mg 1X ONCE 03/20/20 09:30 03/20/20 09:37 DC 03/20/20 09:53 40 MG Sodium Chloride 1,000 ml @ 1,000 mls/hr 1X ONCE 03/20/20 09:30 03/20/20 10:29 03/20/20 09:51 1,000 MLS/HR Allergies: Allergies: Allergies Coded Allergies Type Severity Reaction Last Updated Verified carvedilol Allergy Intermediate 10/23/13 Yes cimetidine Allergy Intermediate 10/23/13 Yes digoxin Allergy Intermediate 10/23/13 Yes duloxetine Allergy Intermediate 10/23/13 Yes ezetimibe Allergy Intermediate 10/23/13 Yes hydrochlorothiazide Allergy Intermediate 10/23/13 Yes ibandronate sodium Allergy Intermediate 10/23/13 Yes isosorbide Allergy Intermediate Shortness of Air 10/23/13 Yes levofloxacin Allergy Intermediate 10/23/13 Yes levothyroxine sodium Allergy Intermediate 10/23/13 Yes meloxicam Allergy Intermediate 10/23/13 Yes metoclopramide Allergy Intermediate 10/23/13 Yes metoprolol Allergy Intermediate 10/23/13 Yes nebivolol Allergy Intermediate 10/23/13 Yes nitrofurantoin Allergy Intermediate 10/23/13 Yes propranolol Allergy Intermediate 10/23/13 Yes ramipril Allergy Intermediate 10/23/13 Yes rofecoxib Allergy Intermediate 10/23/13 Yes rosuvastatin Allergy Intermediate 10/23/13 Yes salsalate Allergy Intermediate 10/23/13 Yes sulfamethazine Allergy Intermediate Anaphylaxis 10/23/13 Yes sulfamethoxazole Allergy Intermediate 10/23/13 Yes tegaserod Allergy Intermediate 10/23/13 Yes ticagrelor Allergy Intermediate 10/23/13 Yes trimethoprim Allergy Intermediate 10/23/13 Yes verapamil Allergy Intermediate 10/23/13 Yes Sulfa (Sulfonamide Antibiotics) Allergy Unknown 02/23/20 Yes yellow dye Allergy Unknown 03/20/20 Yes Physical Exam: PE: Constitutional: Well developed, well nourished, no acute distress, non-toxic appearance HENT: Normocephalic, atraumatic Eyes: Conjunctiva normal, no discharge Neck: Normal range of motion, no tenderness, supple Lungs & Thorax: No respiratory distress, equal chest rise and fall Abdomen: Patient had the most tenderness in LLQ and midline epigastric area. Skin: Warm, dry, no erythema, no rash Back: No tenderness, no CVA tenderness Extremities: No tenderness, ROM intact, no edema Neurologic: Alert and oriented X 3, normal motor function, normal sensory function, no focal deficits noted Psychologic: Affect normal, judgment normal Current Patient Data: Vital Signs: Vital Signs Date Time Temp Pulse Resp B/P (MAP) Pulse Ox O2 Delivery O2 Flow Rate FiO2 03/20/20 09:55 63 18 126/68 (87) 95 Room Air 03/20/20 09:09 97.4 EKG: EKG: @1105 NSR at 63bpm, NO ST elevation, QRS 82ms, QT/QTc 418/431ms Radiology/Procedures: Radiology/Procedures: PROCEDURE: CT ABD PELV W/ IV CONTRST ONLY EXAM: CT Abdomen and Pelvis with IV contrast INDICATION: Reason: abdominal pain / Spl. Instructions: / History: TECHNIQUE: Multi-detector row CT images were acquired from the lung bases through the abdomen and pelvis with the use of IV contrast. Sagittal and coronal images were acquired from the transaxial data. All CT scans performed at this facility utilize dose optimization techniques as appropriate to the exam, including the following: Automated exposure control and adjustment of the mA and/or KV according to patient size (this includes techniques or standardized protocols for targeted exams where dose is indication/reason for exam). IV CONTRAST: Administered ORAL CONTRAST: Not administered COMPARISON: None FINDINGS: LOWER CHEST: Moderate hiatal hernia. Right heart pacemaker wires. LIVER: Unremarkable BILIARY SYSTEM: Gallbladder is distended but otherwise unremarkable.. Bile ducts are not dilated. PANCREAS: Unremarkable SPLEEN: Unremarkable ADRENALS: Unremarkable KIDNEYS & URETERS: Unremarkable BLADDER: Unremarkable REPRODUCTIVE ORGANS: Absent uterus. Ovaries not visualized and may be surgically absent as well. GASTROINTESTINAL: Extensive colonic diverticulosis is present. No findings of acute inflammation are identified. No evidence of bowel obstruction. A 3 cm duodenal diverticulum is present in the third portion. The appendix is normal. MESENTERY/PERITONEUM/RETROPERITONEUM: Unremarkable VASCULAR: Minimal infrarenal abdominal aortic ectasia to 1.9 cm with scattered calcifications. Circumaortic left renal vein. LYMPH NODES: No adenopathy OSSEOUS & SOFT TISSUES: Unremarkable IMPRESSION: No acute findings in the abdomen or pelvis with extensive colonic diverticulosis but no active diverticulitis shown by CT. Electronically signed by: Leonardo Mayorga MD (03/20/2020 11:42 AM) [id number] Course & Med Decision Making: Course & Med Decision Making Pertinent Labs and Imaging studies reviewed. (See chart for details) Patient stable for discharge with outpatient follow-up with PCP. Discussed findings and plan with patient, who acknowledges understanding and agreement. Dragon Disclaimer: Dragon Disclaimer: This electronic medical record was generated, in whole or in part, using a voice recognition dictation system. Departure Departure: Impression: Primary Impression: Abdominal pain Qualified Codes: R10.84 - Generalized abdominal pain Disposition: 01 DC HOME SELF CARE/HOMELESS Condition: STABLE Referrals: GARFIELD BURRELL (PCP) ARDHA YANES MD Patient Instructions: Abdominal Pain, Ohwy-do-Pvry Scripts Hyoscyamine Sulfate (LEVSIN-SL) 0.125 Mg Tab.subl 0.125 MG SL Q4-6HRS PRN for PAIN, #14 TAB Prov: GALE GUERRIER DO 03/20/20 Pantoprazole Sodium (PROTONIX) 40 Mg Tablet. 1 TAB PO DAILY for gastritis, #20 TAB Prov: GALE GUERRIER DO 03/20/20 GALE GUERRIER DO Mar 20, 2020 10:13
[2020-03-20] MEDS ORDERED: IOHEXOL 300 MG/ML 75 ML VIAL. IV ONE (10:15)
[2020-03-20 10:25] LABS: HEMOGLOBIN ISTAT 12.2 gm/dL; POTASSIUM ISTAT 3.6 mmol/L (3.5-5.0)
[2020-03-20 11:31] LABS: BACTERIA,URINE FEW /HPF (0-FEW); BILIRUBIN,URINE NEG (NEG); CLARITY,URINE CLEAR; COLOR,URINE YELLOW; GLUCOSE,URINE NEG (NEG); NITRITE,URINE NEG (NEG); RBC,URINE OCC /HPF (0-2); UROBILINOGEN,URINE 0.2 mg/dL (0.2 mg/dL)
[2020-03-20 11:32] LABS: SQUAMOUS EPITHELIAL CELL,UR FEW /LPF
--- NOTE | 2020-03-20 11:45 | RAD ---
EXAM: CT Abdomen and Pelvis with IV contrast INDICATION: Reason: abdominal pain / Spl. Instructions: / History: TECHNIQUE: Multi-detector row CT images were acquired from the lung bases through the abdomen and pelvis with the use of IV contrast. Sagittal and coronal images were acquired from the transaxial data. All CT scans performed at this facility utilize dose optimization techniques as appropriate to the exam, including the following: Automated exposure control and adjustment of the mA and/or KV according to patient size (this includes techniques or standardized protocols for targeted exams where dose is indication/reason for exam). IV CONTRAST: Administered ORAL CONTRAST: Not administered COMPARISON: None FINDINGS: LOWER CHEST: Moderate hiatal hernia. Right heart pacemaker wires. LIVER: Unremarkable BILIARY SYSTEM: Gallbladder is distended but otherwise unremarkable.. Bile ducts are not dilated. PANCREAS: Unremarkable SPLEEN: Unremarkable ADRENALS: Unremarkable KIDNEYS & URETERS: Unremarkable BLADDER: Unremarkable REPRODUCTIVE ORGANS: Absent uterus. Ovaries not visualized and may be surgically absent as well. GASTROINTESTINAL: Extensive colonic diverticulosis is present. No findings of acute inflammation are identified. No evidence of bowel obstruction. A 3 cm duodenal diverticulum is present in the third portion. The appendix is normal. MESENTERY/PERITONEUM/RETROPERITONEUM: Unremarkable VASCULAR: Minimal infrarenal abdominal aortic ectasia to 1.9 cm with scattered calcifications. Circumaortic left renal vein. LYMPH NODES: No adenopathy OSSEOUS & SOFT TISSUES: Unremarkable IMPRESSION: No acute findings in the abdomen or pelvis with extensive colonic diverticulosis but no active diverticulitis shown by CT. Electronically signed by: Leonardo Mayorga MD (03/20/2020 11:42 AM) [id number]
[2020-03-20 11:51] LABS: DIRECT BILIRUBIN 0.2 mg/dL (0.0-0.2); LIPASE 168 U/L (73-393); MAGNESIUM 2.1 mg/dL (1.8-2.4)
[2020-03-20 11:52] LABS: ALBUMIN 3.7 g/dL (3.4-5.0); ALK PHOS 76 U/L (46-116); ALT (SGPT) 19 U/L (14-59); AST (SGOT) 20 U/L (15-37); TOTAL BILIRUBIN 0.8 mg/dL (0.2-1.0); TOTAL PROTEIN 6.7 g/dL (6.4-8.2)
[2020-03-20] MEDS ORDERED: PANT40TA3 PO (12:52)
[2020-03-20] MEDS ORDERED: HYOS0.1265 SL (13:38)
[2020-03-20] MEDS ORDERED: DICYCLOMINE 20 MG/2 ML VIAL. IM ONE (13:45)
[2020-03-20 13:51] VITALS: BP 162/87
--- NOTE | 2020-03-20 14:34 | EKG ---
[address] [address] Test Date: 2020-03-20 Test Time: 11:05:30 Pat Name: ISABEL HERNANDEZ Department: Room: Gender: F Director Of Speech Pathology: AJ : 1935 Requested By: GALE GUERRIER Order Number: [id number] Reading MD: Measurements Intervals [place] Rate: 63 P: 11 CT: 180 QRS: 41 QRSD: 82 T: 3 QT: 418 QTc: 431 Interpretive Statements SINUS RHYTHM NO SPECIFIC ECG ABNORMALITIES RI6.02 No previous ECG available for comparison
== END 2020-03-20 13:51 | disposition home or self-care (01) ==
LOC: ER 08:55
DX: R10.84 Generalized abdominal pain (principal); R10.32 Left lower quadrant pain; I25.810 Atherosclerosis of coronary artery bypass graft(s) without angina pectoris; K21.9 Gastro-esophageal reflux disease without esophagitis; Z95.0 Presence of cardiac pacemaker; Z88.8 Allergy status to other drugs, medicaments and biological substances; Z88.2 Allergy status to sulfonamides; Z91.041 Radiographic dye allergy status
CPT/HCPCS: 36415; 74177; 80047; 80076; 81001; 82553; 83690; 83735; 84484; 85025; 85610; 85730; 93005; 96361; 96372; 96374; 96375; 99285; C9113; J0500; J2405; J7030; Q9967

== ENCOUNTER → 2020-03-27 | Outpatient (CLI) | payer MEDICARE ==
[2020-03-20 13:51] VITALS: BP 162/87
[~2020-03-27] MED LIST changes: +HYOS0.1265 SL
== END ==
LOC: LAB 13:24
PROVIDERS: ATTEND Internal Medicine Cardiovascular Disease
DX: Z01.812 Encounter for preprocedural laboratory examination (principal); Z20.828 Contact with and (suspected) exposure to other viral communicable diseases
CPT/HCPCS: U0003

== ENCOUNTER 2020-04-22 08:32 | Emergency (ER) | payer MEDICARE ==
[~2020-04-22] VITALS: Ht 157.5 cm; Wt 67.2 kg
[2020-04-22 08:40] VITALS: BP 138/85
--- NOTE | 2020-04-22 09:01 | PHYS DOC ---
Past History Past Medical History: CAD, GERD, Heart Disease Past Surgical History: Hysterectomy, Pacemaker Additional Past Surgical Histo: STENTS Smoking: Non-smoker Alcohol Use: None Drug Use: None Adult General Chief Complaint Chief Complaint: LOWER EXTREMITY SWELLING HPI HPI Patient is a 84F with past medical history of pacemaker placement, CAD and distant history of renal disease now presents emergency department complaining of new onset of lower extremity swelling. Patient states for the last 3 weeks she has noted worsening bilateral lower extremity edema primarily in her ankles. Denies any associated chest pain, shortness of breath, nausea, vomiting. Tootie ent states she was evaluated 3 weeks ago by PA but no blood work was done. Denies any back pain, dysuria Review of Systems Review of Systems Constitutional: Denies fever or chills [] Eyes: Denies change in visual acuity, redness, or eye pain [] HENT: Denies nasal congestion or sore throat [] Respiratory: Denies cough or shortness of breath [] Cardiovascular: No additional information not addressed in HPI [] GI: Denies abdominal pain, nausea, vomiting, bloody stools or diarrhea [] : Denies dysuria or hematuria [] Musculoskeletal: Denies back pain or joint pain [] Integument: Denies rash or skin lesions [] Neurologic: Denies headache, focal weakness or sensory changes [] Endocrine: Denies polyuria or polydipsia [] All other systems were reviewed and found to be within normal limits, except as documented in this note. Allergies Allergies Allergies Coded Allergies Type Severity Reaction Last Updated Verified carvedilol Allergy Intermediate 10/23/13 Yes cimetidine Allergy Intermediate 10/23/13 Yes digoxin Allergy Intermediate 10/23/13 Yes duloxetine Allergy Intermediate 10/23/13 Yes ezetimibe Allergy Intermediate 10/23/13 Yes hydrochlorothiazide Allergy Intermediate 10/23/13 Yes ibandronate sodium Allergy Intermediate 10/23/13 Yes isosorbide Allergy Intermediate Shortness of Air 10/23/13 Yes levofloxacin Allergy Intermediate 10/23/13 Yes levothyroxine sodium Allergy Intermediate 10/23/13 Yes meloxicam Allergy Intermediate 10/23/13 Yes metoclopramide Allergy Intermediate 10/23/13 Yes metoprolol Allergy Intermediate 10/23/13 Yes nebivolol Allergy Intermediate 10/23/13 Yes nitrofurantoin Allergy Intermediate 10/23/13 Yes propranolol Allergy Intermediate 10/23/13 Yes ramipril Allergy Intermediate 10/23/13 Yes rofecoxib Allergy Intermediate 10/23/13 Yes rosuvastatin Allergy Intermediate 10/23/13 Yes salsalate Allergy Intermediate 10/23/13 Yes sulfamethazine Allergy Intermediate Anaphylaxis 10/23/13 Yes sulfamethoxazole Allergy Intermediate 10/23/13 Yes tegaserod Allergy Intermediate 10/23/13 Yes ticagrelor Allergy Intermediate 10/23/13 Yes trimethoprim Allergy Intermediate 10/23/13 Yes verapamil Allergy Intermediate 10/23/13 Yes Sulfa (Sulfonamide Antibiotics) Allergy Unknown 02/23/20 Yes yellow dye Allergy Unknown 03/20/20 Yes Physical Exam Physical Exam Constitutional: Well developed, well nourished, no acute distress, non-toxic appearance. [] HENT: Normocephalic, atraumatic, bilateral external ears normal, oropharynx moist, no oral exudates, nose normal. [] Eyes: PERRLA, EOMI, conjunctiva normal, no discharge. [] Neck: Normal range of motion, no tenderness, supple, no stridor. [] Cardiovascular:Heart rate regular rhythm, no murmur [] Lungs & Thorax: Bilateral breath sounds clear to auscultation [] Abdomen: Bowel sounds normal, soft, no tenderness, no masses, no pulsatile masses. [] Skin: Warm, dry, no erythema, no rash. [] Back: No tenderness, no CVA tenderness. [] Extremities: No tenderness, no cyanosis, no clubbing, ROM intact, bilateral ankles with 2+ edema Neurologic: Alert and oriented X 3, normal motor function, normal sensory function, no focal deficits noted. [] Psychologic: Affect normal, judgement normal, mood normal. [] Heart Score HEART Score for Chest Pain: HEART Score for Chest Pain Response (Comments) Value History Slighlty/Non-Suspicious 0 ECG Normal 0 Age > 65 2 Risk Factors No Risk Factors 0 Total 2 Risk Factors: Risk Factors: DM, Current or recent (<one month) smoker, HTN, HLP, family history of CAD, obesity. Risk Scores: Risk Factors: DM, Current or recent (<one month) smoker, HTN, HLP, family history of CAD, obesity. Course & Med Decision Making Course & Med Decision Making Pertinent Labs and Imaging studies reviewed. (See chart for details) 84-year-old female presenting the emergency department new onset of bilateral lower extremity edema. Patient does have recent pacemaker wire replacement on the fourth which could be contributing to worsening congestive heart failure or other cardiac disease. In addition patient does have a history of renal disease. Will obtain cardiac work-up and BMP to determine underlying etiology. 10:46 -labs, EKG and imaging reviewed without any significant explanation of the patient's symptoms. Patient did have an elevated BNP however one performed in January shows a similar finding. At this point there may be a mild exacerbation of the CHF does not appear to be acute and does not appear to be life-threatening. At this time the patient is going to follow-up with her primary care physician and docket clerk started tomorrow. I feel that this is a safe plan at this time. No suspicion for pulmonary embolism or renal failure at this Dragon Disclaimer Dragon Disclaimer This electronic medical record was generated, in whole or in part, using a voice recognition dictation system. Departure Departure: Impression: Primary Impression: Lower extremity edema Disposition: 01 DC HOME SELF CARE/HOMELESS Condition: GOOD Referrals: GARFIELD BURRELL (PCP) Patient Instructions: Edema, [id number] JAYLA REECE MD Apr 22, 2020 09:01
[2020-04-22 09:47] LABS: BASO % 1 % (0-3); EOS # 0.2 x10^3/uL (0.0-0.7); EOS % 3 % (0-3); HEMATOCRIT 32.1 % (36.0-47.0); HEMOGLOBIN 10.7 g/dL (12.0-15.5); LYMPH # 1.3 x10^3/uL (1.0-4.8); LYMPH % 18 % (24-48); MEAN CORPUSCULAR HEMOGLOBIN 30 pg (25-35); MEAN CORPUSCULAR HGB CONC 33 g/dL (31-37); MEAN CORPUSCULAR VOLUME 91 fL (79-100); MONO # 0.6 x10^3/uL (0.0-1.1); MONO % 9 % (0-9); NEUT % 70 % (31-73); PLATELET COUNT 213 x10^3/uL (140-400); RED BLOOD COUNT 3.55 x10^6/uL (3.50-5.40); RED CELL DISTRIBUTION WIDTH 15.9 % (11.5-14.5); WHITE BLOOD COUNT 7.1 x10^3/uL (4.0-11.0)
--- NOTE | 2020-04-22 09:53 | RAD ---
EXAM: CHEST 1 VIEW History: Shortness of breath COMPARISON: 02/23/2020 TECHNIQUE: Single portable radiograph of the chest FINDINGS: Mild cardiomegaly. Left-sided cardiac pacer is identified. Mild prominent bilateral inters titial lung markings likely congestive changes. Impression: 1. Mild congestive changes. Electronically signed by: Lawrence Hurst MD (04/22/2020 9:50 AM) [id number]
[2020-04-22 10:00] LABS: CALCIUM 8.6 mg/dL (8.5-10.1); GFR 53.1; POTASSIUM 3.4 mmol/L (3.5-5.1)
[2020-04-22 10:06] LABS: ALBUMIN 3.3 g/dL (3.4-5.0); ALBUMIN/GLOBULIN RATIO 1.2 (1.0-1.7); MAGNESIUM 1.8 mg/dL (1.8-2.4); TOTAL BILIRUBIN 0.4 mg/dL (0.2-1.0); TOTAL PROTEIN 6.1 g/dL (6.4-8.2)
[2020-04-22] MEDS ORDERED: NEOMY/BACITR/POLYMYXIN OINT PACKET. TP ONE (11:24)
--- NOTE | 2020-04-23 10:03 | EKG ---
[address] [address] Test Date: 2020-04-22 Test Time: 10:05:41 Pat Name: ISABEL HERNANDEZ Department: Room: Gender: F Principal Strategist: : 1935 Requested By: JAYLA REECE Order Number: [id number] Reading MD: Measurements Intervals [place] Rate: 70 P: 10 DE: 132 QRS: 21 QRSD: 80 T: 3 QT: 406 QTc: 441 Interpretive Statements SINUS RHYTHM NORMAL ECG RI6.02 No previous ECG available for comparison
== END 2020-04-22 11:31 | disposition home or self-care (01) ==
LOC: ER 08:32
DX: R60.0 Localized edema (principal); I25.10 Atherosclerotic heart disease of native coronary artery without angina pectoris; K21.9 Gastro-esophageal reflux disease without esophagitis; Z95.0 Presence of cardiac pacemaker; Z88.1 Allergy status to other antibiotic agents; Z88.2 Allergy status to sulfonamides; Z88.8 Allergy status to other drugs, medicaments and biological substances; Z91.041 Radiographic dye allergy status
CPT/HCPCS: 36415; 71045; 80053; 82550; 83735; 83880; 84484; 85025; 93005; 99285

== ENCOUNTER → 2020-08-15 | Outpatient (CLI) | payer MEDICARE ==
[~2020-08-15] MED LIST changes: -LISI-338 PO; +LISI-517 PO
--- NOTE | 2020-08-15 13:29 | RAD ---
EXAM: Head CT without contrast. HISTORY: Memory loss. TECHNIQUE: Computed tomographic images of the head were obtained without contrast. *One or more of the following individualized dose reduction techniques were utilized for this examina tion: 1. Automated exposure control. 2. Adjustment of the mA and/or kV according to patient size. 3. Use of iterative reconstruction technique. COMPARISON: 07/05/2018. FINDINGS: There is no acute or subacute extra-axial or intraparenchymal hemorrhage. There is no mass effect or midline shift. There is no hydrocephalus. There are areas of decreased attenuation within the cerebral white matter, nonspecific and likely rel ated to chronic small vessel disease. There is cerebral volume loss. The visualized portions of the orbits, paranasal sinuses and mastoid air cells are unremarkable. No s uspicious calvarial lesion is seen. IMPRESSION: No acute intracranial findings. Electronically signed by: Carmina Garcia MD (08/15/2020 1:27 PM) [id number]
== END ==
LOC: CT 13:07
PROVIDERS: ATTEND Psychiatry & Neurology Neurology
DX: R41.3 Other amnesia (principal); F03.90 Unspecified dementia, unspecified severity, without behavioral disturbance, psychotic disturbance, mood disturbance, and anxiety
CPT/HCPCS: 70450

== ENCOUNTER 2020-10-22 07:53 | Observation (INO) | payer MEDICARE ==
[~2020-10-22] VITALS: Ht 157.5 cm; Wt 61.3 kg
--- NOTE | 2020-10-22 08:07 | PHYS DOC ---
Past History Past Medical History: CAD, GERD, Heart Disease Past Surgical History: Hysterectomy, Pacemaker Additional Past Surgical Histo: STENTS Smoking: Non-smoker Alcohol Use: None Drug Use: None Adult General HPI HPI Patient is a 85-year-old female presenting via POV for chest pain. Reports this is been going on for past 4 days without any known inciting event. Patient has been taking a baby aspirin and utilizing nitro patches daily with minimal relief, nothing known makes worse. Describes pain as a tightness under her left breast that is deep and radiates to left shoulder and back area. Timing of symptoms has been constant but reports it is woken her from her sleep several times in past 72 hours. States pain is been in 8/10 severity. She has significant history of coronary artery disease, has had x7 prior stents, was last seen by [facility] cardiology group for pacemaker battery replacement. She believes she got pacemaker for prior history of atrial fibrillation. As mention, she takes 81 mg aspirin daily but no other blood thinners. No recent fever, sick contact, recent travel, cough, chest pain, abdominal pain, UTI symptoms, lower extremity edema. Review of Systems Review of Systems Fourteen body systems of review of systems have been reviewed. See HPI for pertinent positives and negative responses, other odom all other systems are negative, non-pertinent or non-contributory Allergies Allergies Allergies Coded Allergies Type Severity Reaction Last Updated Verified carvedilol Allergy Intermediate 10/23/13 Yes cimetidine Allergy Intermediate 10/23/13 Yes digoxin Allergy Intermediate 10/23/13 Yes duloxetine Allergy Intermediate 10/23/13 Yes ezetimibe Allergy Intermediate 10/23/13 Yes hydrochlorothiazide Allergy Intermediate 10/23/13 Yes ibandronate sodium Allergy Intermediate 10/23/13 Yes isosorbide Allergy Intermediate Shortness of Air 10/23/13 Yes levofloxacin Allergy Intermediate 10/23/13 Yes levothyroxine sodium Allergy Intermediate 10/23/13 Yes meloxicam Allergy Intermediate 10/23/13 Yes metoclopramide Allergy Intermediate 10/23/13 Yes metoprolol Allergy Intermediate 10/23/13 Yes nebivolol Allergy Intermediate 10/23/13 Yes nitrofurantoin Allergy Intermediate 10/23/13 Yes propranolol Allergy Intermediate 10/23/13 Yes ramipril Allergy Intermediate 10/23/13 Yes rofecoxib Allergy Intermediate 10/23/13 Yes rosuvastatin Allergy Intermediate 10/23/13 Yes salsalate Allergy Intermediate 10/23/13 Yes sulfamethazine Allergy Intermediate Anaphylaxis 10/23/13 Yes sulfamethoxazole Allergy Intermediate 10/23/13 Yes tegaserod Allergy Intermediate 10/23/13 Yes ticagrelor Allergy Intermediate 10/23/13 Yes trimethoprim Allergy Intermediate 10/23/13 Yes verapamil Allergy Intermediate 10/23/13 Yes Sulfa (Sulfonamide Antibiotics) Allergy Unknown 02/23/20 Yes yellow dye Allergy Unknown 03/20/20 Yes Physical Exam Physical Exam Constitutional: Well developed, well nourished, no acute distress, non-toxic appearance. HENT: Normocephalic, atraumatic, bilateral external ears normal, oropharynx moist, no oral exudates, nose normal. Eyes: PERRLA, EOMI, conjunctiva normal, no discharge. Neck: Normal range of motion, no tenderness, supple, no stridor. Cardiovascular: Heart rate regular, sinus rhythm, no murmurs rubs or gallops Lungs & Thorax: Bilateral breath sounds clear to auscultation Abdomen: Bowel sounds normal, soft, no tenderness, no masses, no pulsatile masses. Nonsurgical abdomen, no peritoneal signs Skin: Warm, dry, no erythema, no rash. Back: No tenderness, no CVA tenderness. Extremities: No tenderness, no cyanosis, no clubbing, ROM intact, no edema. Neurologic: Alert and oriented X 3, grossly normal motor & sensory function, no focal deficits noted. Psychologic: Affect normal, judgement normal, mood normal. Current Patient Data Vital Signs Vital Signs Date Time Temp Pulse Resp B/P (MAP) Pulse Ox O2 Delivery O2 Flow Rate FiO2 10/22/20 07:58 97.4 70 20 140/73 (95) 96 Room Air Vital Signs Date Time Temp Pulse Resp B/P (MAP) Pulse Ox O2 Delivery O2 Flow Rate FiO2 10/22/20 09:25 20 96 Room Air 10/22/20 07:58 97.4 70 140/73 (95) Lab Results Laboratory Tests Test 10/22/20 08:02 White Blood Count 7.4 x10^3/uL Red Blood Count 4.52 x10^6/uL Hemoglobin 13.5 g/dL Hematocrit 40.4 % Mean Corpuscular Volume 89 fL Mean Corpuscular Hemoglobin 30 pg Mean Corpuscular Hemoglobin Concent 34 g/dL Red Cell Distribution Width 14.5 % Platelet Count 268 x10^3/uL Neutrophils (%) (Auto) 60 % Lymphocytes (%) (Auto) 24 % Monocytes (%) (Auto) 10 % Eosinophils (%) (Auto) 4 % Basophils (%) (Auto) 1 % Neutrophils # (Auto) 4.4 x10^3uL Lymphocytes # (Auto) 1.8 x10^3/uL Monocytes # (Auto) 0.8 x10^3/uL Eosinophils # (Auto) 0.3 x10^3/uL Basophils # (Auto) 0.1 x10^3/uL Sodium Level 144 mmol/L Potassium Level 4.3 mmol/L Chloride Level 106 mmol/L Carbon Dioxide Level 27 mmol/L Anion Gap 11 Blood Urea Nitrogen 26 mg/dL Creatinine 1.2 mg/dL Estimated GFR (Cockcroft-Gault) 42.9 Glucose Level 101 mg/dL Calcium Level 10.3 mg/dL Troponin I Quantitative < 0.017 ng/mL HC-Lqj-Y-Type Natriuretic Peptide 563 pg/mL Current Medications Medications (Trade) Dose Ordered Sig/Jing Route PRN Reason Start Time Stop Time Status Last Admin Dose Admin Aspirin (Aspirin Chewable) 162 mg 1X ONCE PO 10/22/20 08:15 10/22/20 08:21 DC 10/22/20 08:23 Aspirin (Aspirin Enteric Coated) 81 mg STK-MED ONCE PO 10/22/20 08:18 10/22/20 08:18 DC Fentanyl Citrate (Fentanyl 2ml Vial) 50 mcg 1X ONCE IVP 10/22/20 09:00 10/22/20 09:01 DC 10/22/20 08:55 EKG EKG EKG ordered and interpreted by myself at 0804 hrs. as sinus rhythm at 70 bpm, unremarkable intervals, no axis deviation, nonspecific T wave abnormality in lead III otherwise no ischemic findings, no STEMI Radiology/Procedures Radiology/Procedures EXAM: Chest, single view. HISTORY: Chest pain. COMPARISON: 04/22/2020 FINDINGS: A frontal view of the chest is obtained. There is stable suspected linear scarring within the left mid thorax. There is no complication, pleural effusion or pneumothorax. There is stable cardiomegaly and a cardiac pacemaker. IMPRESSION: 1. No acute pulmonary finding. 2. Stable cardiomegaly. Electronically signed by: Carmina Garcia MD (10/22/2020 8:29 AM) [id number] Heart Score C/O Chest Pain: Yes HEART Score for Chest Pain: HEART Score for Chest Pain Response (Comments) Value History Moderately Suspicious 1 ECG Nonspecific Repolarizatio 1 Age > 65 2 Risk Factors >3 Risk Factors or Hx CAD 2 Troponin < Normal Limit 0 Total 6 Risk Factors: Risk Factors: DM, Current or recent (<one month) smoker, HTN, HLP, family history of CAD, obesity. Risk Scores: Risk Factors: DM, Current or recent (<one month) smoker, HTN, HLP, family history of CAD, obesity. Course & Med Decision Making Course & Med Decision Making ABCs unremarkable. History concerning for angina, physical exam and ER work-up nonconcerning for emergent or surgical issues 162 mg aspirin administered on top of previous 81 mg aspirin which is her morning daily medication, patient has nitro patch on prior to arrival. 50 mcgs fentanyl administered with improvement in symptoms Nonetheless, patient still symptomatic despite x2 - EKG and troponin. She has extensive cardiac history for x7 stents. She lives home alone. She feels unsafe for discharge as she acknowledges her extreme risk for adverse cardiac event given history I contacted hospitalist at [facility] and reviewed need for hospital admission, he accepted patient under his care to telemetry unit I updated patient on proposed plan of care that included hospital admission and she was amenable. All questions and concerns addressed prior to hospital admission Critical Care Time This patient required critical care. Due to the fact that the patient required a significant amount of one on one physician - patient contact time, ordering and review of studies, arranging urgent treatment with development of a management plan, evaluation of patients response to treatment with frequent reassessments, and discussions with other providers this patient required 40 minutes of critical care time. Critical care time was indicated due to the inherent instability and/or potential for instability in this patient. The critical care time that is allocated to this patient is above and beyond any time spent on any other billable procedures performed on this patient. Dragon Disclaimer Dragon Disclaimer This electronic medical record was generated, in whole or in part, using a voice recognition dictation system. Departure Departure: Impression: Primary Impression: Chest pain Disposition: ADMITTED INPATIENT Admitting Physician: Judah Ford Condition: STABLE Referrals: GARFIELD BURRELL (PCP) EDMAR SMITH DO Oct 22, 2020 08:07
[2020-10-22] MEDS ORDERED: ASPIRIN CHEWABLE 81 MG TABLET. PO ONE (08:15)
[2020-10-22] MEDS ORDERED: ASPIRIN ENTERIC COATED 81 MG TABLET.DR. PO ONE (08:18)
[2020-10-22 08:23] LABS: BASO # 0.1 x10^3/uL (0.0-0.2); BASO % 1 % (0-3); EOS # 0.3 x10^3/uL (0.0-0.7); EOS % 4 % (0-3); HEMATOCRIT 40.4 % (36.0-47.0); HEMOGLOBIN 13.5 g/dL (12.0-15.5); LYMPH # 1.8 x10^3/uL (1.0-4.8); LYMPH % 24 % (24-48); MEAN CORPUSCULAR HEMOGLOBIN 30 pg (25-35); MEAN CORPUSCULAR HGB CONC 34 g/dL (31-37); MEAN CORPUSCULAR VOLUME 89 fL (79-100); MONO # 0.8 x10^3/uL (0.0-1.1); MONO % 10 % (0-9); NEUT # 4.4 x10^3uL (1.8-7.7); NEUT % 60 % (31-73); PLATELET COUNT 268 x10^3/uL (140-400); RED BLOOD COUNT 4.52 x10^6/uL (3.50-5.40); RED CELL DISTRIBUTION WIDTH 14.5 % (11.5-14.5); WHITE BLOOD COUNT 7.4 x10^3/uL (4.0-11.0)
--- NOTE | 2020-10-22 08:31 | RAD ---
EXAM: Chest, single view. HISTORY: Chest pain. COMPARISON: 04/22/2020 FINDINGS: A frontal view of the chest is obtained. There is stable suspected linear scarring within t he left mid thorax. There is no complication, pleural effusion or pneumothorax. There is stable cardi omegaly and a cardiac pacemaker. IMPRESSION: 1. No acute pulmonary finding. 2. Stable cardiomegaly. Electronically signed by: Carmina Garcia MD (10/22/2020 8:29 AM) [id number]
[2020-10-22 08:39] LABS: CALCIUM 10.3 mg/dL (8.5-10.1); CREATININE 1.2 mg/dL (0.6-1.0); GFR 42.9; POTASSIUM 4.3 mmol/L (3.5-5.1)
[2020-10-22] MEDS ORDERED: ACETAMINOPHEN 325 MG TABLET PO PRN (09:45)
[2020-10-22 11:45] VITALS: BP 166/89
--- NOTE | 2020-10-22 12:41 | HP ---
ADMIT DATE: 10/22/2020 ATTENDING PHYSICIAN: Dr. Ford. CHIEF COMPLAINT: Dull left-sided chest wall pain. HISTORY OF PRESENT ILLNESS: The patient, aged 85, presented to the ED with a 3-day history of left-sided chest wall pain. It is a dull discomfort under her left breast and radiates to left shoulder and back area. The symptoms are constant, but it has been awaking from sleep several times in the last 72 hours. No recent trauma. Pretty severe. She has a significant history of coronary artery disease. Her most recent cardiac catheterization was in 2013. She has had a total of seven stents. She has a permanent pacemaker. Her hedis nurse is Dr. Ortiz at [facility]. He did a last catheterization. She is on aspirin 81 mg. No recent travel. She denies any nonsteroidal anti-inflammatory drug use. Caffeine use, alcohol or tobacco use. She is admitted then for further treatment and evaluation. Her first set of cardiac enzyme was nonischemic. EKG and chest x-ray were nondiagnostic. She is ambulatory and alert. ALLERGIES: SHE HAS SEVERAL ALLERGIES. SHE LISTS ALLERGIES INCLUDING SULFA DRUGS, CIMETIDINE, DIGITALIS, CYMBALTA, HYDROCHLOROTHIAZIDE, IMDUR, LEVOFLOXACIN, SYNTHROID, MELOXICAM, METOCLOPRAMIDE, METOPROLOL, NITROFURANTOIN, PROPRANOLOL AND RAMIPRIL. EXACT REACTION IS UNCLEAR. CURRENT MEDICATIONS: Include Tylenol, Xanax, vitamin C, carvedilol 3.125 mg b.i.d., cholecalciferol, Lexapro, Voltaren gel, hyoscyamine, Linzess, magnesium oxide, nitroglycerin, Protonix, Aldactone, tizanidine, and calcium. SOCIAL HISTORY: She is a nonsmoker, nondrinker. FAMILY HISTORY: Noncontributory. REVIEW OF SYSTEMS: She has been fairly active. She has a little tremor of her lips. She sees Landy Parmar at the office. She is . No recent COVID exposure. No nausea or vomiting. No recent travel. No trauma. No heavy lifting or house work. All other systems reviewed and turned to be negative. PHYSICAL EXAMINATION: GENERAL: When I saw her, this is a pleasant elderly female. VITAL SIGNS: Initial vital signs showed blood pressure 134/81, pulse is 70 and regular. She is afebrile. Oxygen saturation 94% on room air. HEENT: Head is without trauma. Pupils are reactive. Sclerae nonicteric. The oropharynx is clear. NECK: Supple. No bruits identified. LUNGS: Otherwise clear. CARDIOVASCULAR: Regular heart tones. No gallops. Peripheral pulses are palpable and full. ABDOMEN: Soft, scaphoid, nontender. EXTREMITIES: Without edema. NEUROLOGIC: Focally intact. No deficits. Speech is fluent. PERTINENT LABORATORY AND X-RAY STUDY: Initial chest x-ray showed stable cardiomegaly, but no acute pulmonary infiltrates or decompensation. LABORATORY DATA: Her laboratory on admission, the first set of cardiac enzymes were negative for coronary ischemia. Her electrolytes and CBC reviewed. They appear unremarkable at this time. ASSESSMENT: 1. An 85-year-old female with atypical chest pressure/pain. Whether this is musculoskeletal or coronary, remains to be seen. 2. Known history of coronary artery disease with previous stents. 3. Essential hypertension, currently normotensive. 4. Degenerative arthritis. 5. Mild essential tremor. PLAN: 1. Admit to the telemetry unit. 2. Serial cardiac enzymes. 3. We will ask our Net Mobile Developer see here for evaluation. 4. Continue home medications as ordered. EL DR: Charissa TID: [id number] CC: ALVIN JERRY
[2020-10-22] MEDS ORDERED: EZET10TA20 PO (13:23)
[2020-10-22] MEDS ORDERED: ALPRAZolam 0.5 MG TABLET PO PRN (13:30)
[2020-10-22] MEDS ORDERED: LIDO:MAALOX 1:1 20 ML SINGLE DOSE. PO ONE (13:45)
[2020-10-22 15:19] VITALS: BP 121/72
--- NOTE | 2020-10-22 16:45 | PDOC2 ---
CONSULT DOS: DATE: 10/22/20 TIME: 16:44 Reason for Consult: Chest pain Referring Physician: Dr. Ford Chief Complaint CP Source: Chart review, Patient Problem List Problems Medical Problems: (1) Chest pain Status: Acute History of Present Illness 85 y/o female with PMH of CAD s/p multiple PCI/stents (7 stents per patient, last one in 2011) by Dr. Gonzalez, SSS s/p PPM implantation with more [facility] Dr. Ortiz currently presented with a two week history of epigastric and left upper quadrant pain not related to exertion, 6/10 severity and slightly worse after eating. She denied any orthopnea/PND, palpitations or syncope. Past Medical History CAD s/p PCI/stents placement SSS s/p PPM with more recent generator change HTN HLP GERD Past Surgical History PPM implantation Family History not contributory Social History Patient is non smoker and non drinker Current Medications Current Medications Aspirin (Aspirin Chewable) 162 mg 1X ONCE PO Last administered on 10/22/20at 08:23; Start 10/22/20 at 08:15; Stop 10/22/20 at 08:21; Status DC Aspirin (Aspirin Enteric Coated) 81 mg STK-MED ONCE PO ; Start 10/22/20 at 08:18; Stop 10/22/20 at 08:18; Status DC Fentanyl Citrate (Fentanyl 2ml Vial) 50 mcg 1X ONCE IVP Last administered on 10/22/20at 08:55; Start 10/22/20 at 09:00; Stop 10/22/20 at 09:01; Status DC Acetaminophen (Tylenol) 650 mg PRN Q4HRS PRN PO FEVER > 100.3'F; Start 10/22/20 at 09:45; Stop 10/23/20 at 09:44 Alprazolam (Xanax) 0.5 mg PRN DAILY PRN PO ANXIETY / AGITATION; Start 10/22/20 at 13:30 Carvedilol (Coreg) 3.125 mg BIDWMEALS PO ; Start 10/22/20 at 17:00 Citalopram Hydrobromide (CeleXA) 20 mg DAILY PO ; Start 10/23/20 at 09:00 EZETIMIBE (Zetia) 10 mg HS PO ; Start 10/22/20 at 21:00 Pantoprazole Sodium (Protonix) 40 mg DAILY PO ; Start 10/23/20 at 09:00 Vitamin D (Vitamin D3) 1,000 unit DAILY PO ; Start 10/23/20 at 09:00 Nitroglycerin (Nitro-Dur 0.4mg) 1 patch DAILY TD ; Start 10/23/20 at 09:00 Multi-Ingredient Mouthwash/Gargle (Gi Cocktail) 60 ml 1X ONCE PO Last admini stered on 10/22/20at 14:07; Start 10/22/20 at 13:45; Stop 10/22/20 at 13:46; Status DC Active Scripts Active Protonix (Pantoprazole Sodium) 40 Mg Tablet.dr 1 Tab PO DAILY Reported Zetia (Ezetimibe) 10 Mg Tablet 10 Mg PO HS Vitamin B-12 (Cyanocobalamin (Vitamin B-12)) 1,000 Mcg Tablet 1 Tab PO DAILY LAST DOSE GIVEN: DATE: TODAY TIME: AM NEXT DOSE DUE: DATE: TOMORROW TIME: AM [Nitroglycerin Patch] 0.4 Mg TOP DAILY LAST DOSE GIVEN: DATE: TODAY TIME: AM NEXT DOSE DUE: DATE: TOMORROW TIME: AM Citalopram Hbr (Citalopram Hydrobromide) 20 Mg Tablet 20 Mg PO DAILY LAST DOSE GIVEN: DATE: TODAY TIME: AM NEXT DOSE DUE: DATE: TOMORROW TIME: AM Coreg (Carvedilol) 3.125 Mg Tablet 3.125 Mg PO BIDWMEALS LAST DOSE GIVEN: DATE: TODAY TIME: WITH BREAKFAST NEXT DOSE DUE: DATE: TODAY TIME: WITH DINNER [Calcium + Magnesium] 1 Tab PO DAILY NOT GIVEN IN THE HOSPITAL NEXT DOSE DUE: DATE: TOMORROW TIME: AM Alprazolam 0.5 Mg Tablet 0.5 Mg PO DAILY PRN NOT GIVEN TODAY NEXT DOSE DUE: DATE: TODAY TIME: IF AND WHEN NEEDED Vitamin D-3 (Cholecalciferol (Vitamin D3)) 2,000 Unit Capsule 1,000 Unit PO DAILY LAST DOSE GIVEN: DATE: TODAY TIME: AM NEXT DOSE DUE: DATE: TOMORROW TIME: AM Allergies: Coded Allergies: cimetidine (Verified Allergy, Intermediate, 10/23/13) digoxin (Verified Allergy, Intermediate, 10/23/13) duloxetine (Verified Allergy, Intermediate, 10/23/13) hydrochlorothiazide (Verified Allergy, Intermediate, 10/23/13) ibandronate sodium (Verified Allergy, Intermediate, 10/23/13) isosorbide (Verified Allergy, Intermediate, Shortness of Air, 10/23/13) levofloxacin (Verified Allergy, Intermediate, 10/23/13) levothyroxine sodium (Verified Allergy, Intermediate, 10/23/13) meloxicam (Verified Allergy, Intermediate, 10/23/13) metoclopramide (Verified Allergy, Intermediate, 10/23/13) metoprolol (Verified Allergy, Intermediate, 10/23/13) nebivolol (Verified Allergy, Intermediate, 10/23/13) nitrofurantoin (Verified Allergy, Intermediate, 10/23/13) propranolol (Verified Allergy, Intermediate, 10/23/13) ramipril (Verified Allergy, Intermediate, 10/23/13) rofecoxib (Verified Allergy, Intermediate, 10/23/13) rosuvastatin (Verified Allergy, Intermediate, 10/23/13) salsalate (Verified Allergy, Intermediate, 10/23/13) sulfamethazine (Verified Allergy, Intermediate, Anaphylaxis, 10/23/13) sulfamethoxazole (Verified Allergy, Intermediate, 10/23/13) tegaserod (Verified Allergy, Intermediate, 10/23/13) ticagrelor (Verified Allergy, Intermediate, 10/23/13) trimethoprim (Verified Allergy, Intermediate, 10/23/13) verapamil (Verified Allergy, Intermediate, 10/23/13) Sulfa (Sulfonamide Antibiotics) (Verified Allergy, Unknown, 02/23/20) yellow dye (Verified Allergy, Unknown, 03/20/20) PSYCHOLOGICAL ROS: No: Hallucinations Eyes: No: Loss of vision HEENT: No: Epistaxis Respiratory: No: Hemoptysis, Shortness of breath Cardiovascular: yes: Chest Pain Gastrointestinal: YES: Abdominal Pain; No: Vomiting, Diarrhea Neurological: No: Seizures Skin: No: Rash General: Alert, Oriented X3 HEENT: Atraumatic Lungs: Clear to auscultation Heart: Regular rate Abdomen: Soft Extremities: No edema Psych/Mental Status: Mood NL VITALS Vital Signs Date Time Temp Pulse Resp B/P (MAP) Pulse Ox O2 Delivery O2 Flow Rate FiO2 10/22/20 15:19 98.2 71 20 121/72 (88) 97 Room Air Labs Laboratory Tests Test 10/22/20 08:02 White Blood Count 7.4 x10^3/uL (4.0-11.0) Red Blood Count 4.52 x10^6/uL (3.50-5.40) Hemoglobin 13.5 g/dL (12.0-15.5) Hematocrit 40.4 % (36.0-47.0) Mean Corpuscular Volume 89 fL (79-100) Mean Corpuscular Hemoglobin 30 pg (25-35) Mean Corpuscular Hemoglobin Concent 34 g/dL (31-37) Red Cell Distribution Width 14.5 % (11.5-14.5) Platelet Count 268 x10^3/uL (140-400) Neutrophils (%) (Auto) 60 % (31-73) Lymphocytes (%) (Auto) 24 % (24-48) Monocytes (%) (Auto) 10 % (0-9) Eosinophils (%) (Auto) 4 % (0-3) Basophils (%) (Auto) 1 % (0-3) Neutrophils # (Auto) 4.4 x10^3uL (1.8-7.7) Lymphocytes # (Auto) 1.8 x10^3/uL (1.0-4.8) Monocytes # (Auto) 0.8 x10^3/uL (0.0-1.1) Eosinophils # (Auto) 0.3 x10^3/uL (0.0-0.7) Basophils # (Auto) 0.1 x10^3/uL (0.0-0.2) Sodium Level 144 mmol/L (136-145) Potassium Level 4.3 mmol/L (3.5-5.1) Chloride Level 106 mmol/L (98-107) Carbon Dioxide Level 27 mmol/L (21-32) Anion Gap 11 (6-14) Blood Urea Nitrogen 26 mg/dL (7-20) Creatinine 1.2 mg/dL (0.6-1.0) Estimated GFR (Cockcroft-Gault) 42.9 Glucose Level 101 mg/dL (70-99) Calcium Level 10.3 mg/dL (8.5-10.1) Troponin I Quantitative < 0.017 ng/mL (0-0.055) VS-Qro-Y-Type Natriuretic Peptide 563 pg/mL (0-449) Assessment/Plan 1. CP with atypical features and most probably GI etiology. DC ruled out. Patient has history of CAD and has had multiple PCI/stents placed in past. We will obtain records from primary snow technician and consider ischemic evaluation as outpatient 2. HTN: controlled 3. HLP: ? statin intolerant, on zetia 4. SSS s/p PPM and more recent generator change, clinically stable Thank you for your consultation NOHELIA BOND MD Oct 22, 2020 16:45
[2020-10-22] MEDS: CARVEDILOL 3.125 MG TABLET PO SCH (17:04)
[2020-10-22 18:52] VITALS: BP 126/73
[2020-10-22] MEDS ORDERED: EZETIMIBE 10 MG TABLET PO SCH (21:00)
[2020-10-22 23:01] VITALS: BP 132/76
[2020-10-22] MEDS ORDERED: ONDANSETRON PF 4 MG/2 ML VIAL. IVP PRN (23:45)
[2020-10-23 05:03] VITALS: BP 134/78
[2020-10-23 07:59] VITALS: BP 134/78
[2020-10-23] MEDS: CARVEDILOL 3.125 MG TABLET PO SCH (07:59)
[2020-10-23] MEDS ORDERED: PANTOPRAZOLE 40 MG TABLET. PO SCH (09:00)
[2020-10-23] MEDS ORDERED: NITROGLYCERIN 0.4MG/HR PATCH. TD SCH (09:00)
[2020-10-23] MEDS ORDERED: CHOLECALCIFEROL (VITAMIN D3) 1,000 UNIT TABLET PO SCH (09:00)
[2020-10-23] MEDS ORDERED: CITALOPRAM 20 MG TABLET. PO SCH (09:00)
--- NOTE | 2020-10-23 09:01 | PDOC ---
CARDIO Progress Notes Date & Time Date of Service DATE: 10/23/20 TIME: 09:00 Time of Evaluation 09:00 Subjective Notes Chest pain, shortness of breath, dizziness, diaphoresis, or nausea/vomiting. Vitals Vitals Vital Signs Date Time Temp Pulse Resp B/P (MAP) Pulse Ox O2 Delivery O2 Flow Rate FiO2 10/23/20 07:59 70 134/78 10/23/20 06:15 93 Room Air 10/23/20 05:03 98.8 18 Weight Weight [ ] Input and Output I.O. Intake and Output 10/23/20 07:00 Intake Total 480 ml Output Total 1 ml Balance 479 ml Intake Oral 480 ml Output Stool Total 1 ml # Voids 6 Laboratory Labs Laboratory Tests Test 10/22/20 08:02 10/22/20 17:55 10/22/20 20:00 White Blood Count 7.4 x10^3/uL (4.0-11.0) Red Blood Count 4.52 x10^6/uL (3.50-5.40) Hemoglobin 13.5 g/dL (12.0-15.5) Hematocrit 40.4 % (36.0-47.0) Mean Corpuscular Volume 89 fL (79-100) Mean Corpuscular Hemoglobin 30 pg (25-35) Mean Corpuscular Hemoglobin Concent 34 g/dL (31-37) Red Cell Distribution Width 14.5 % (11.5-14.5) Platelet Count 268 x10^3/uL (140-400) Neutrophils (%) (Auto) 60 % (31-73) Lymphocytes (%) (Auto) 24 % (24-48) Monocytes (%) (Auto) 10 % (0-9) Eosinophils (%) (Auto) 4 % (0-3) Basophils (%) (Auto) 1 % (0-3) Neutrophils # (Auto) 4.4 x10^3uL (1.8-7.7) Lymphocytes # (Auto) 1.8 x10^3/uL (1.0-4.8) Monocytes # (Auto) 0.8 x10^3/uL (0.0-1.1) Eosinophils # (Auto) 0.3 x10^3/uL (0.0-0.7) Basophils # (Auto) 0.1 x10^3/uL (0.0-0.2) Sodium Level 144 mmol/L (136-145) Potassium Level 4.3 mmol/L (3.5-5.1) Chloride Level 106 mmol/L (98-107) Carbon Dioxide Level 27 mmol/L (21-32) Anion Gap 11 (6-14) Blood Urea Nitrogen 26 mg/dL (7-20) Creatinine 1.2 mg/dL (0.6-1.0) Estimated GFR (Cockcroft-Gault) 42.9 Glucose Level 101 mg/dL (70-99) Calcium Level 10.3 mg/dL (8.5-10.1) Troponin I Quantitative < 0.017 ng/mL (0-0.055) < 0.017 ng/mL (0-0.055) < 0.017 ng/mL (0-0.055) RS-Mqn-M-Type Natriuretic Peptide 563 pg/mL (0-449) Physical Exams HEENT: Neck Supple W Full Motion Chest: Symmetric Lungs: Clear to Auscultation Heart: RRR Abdomen: Soft N/T Extremities: No Edema Neurology: alert, oriented, follow commands Assessment Assessment 1. CP with atypical features and most probably GI etiology. AMI ruled out. 2. CAD s/p multiple PCI/stents placed in past. [facility] 3. HTN: controlled 4. HLP: ? statin intolerant, on zetia 5. SSS s/p PPM and more recent generator change (St. Norm MRI compatible device) 04/15 Recommendations Continue secondary prevention measures. Records obtained from [facility], but not recent cardiac testing or cardiology notes obtained Outpatient ischemic evaluation Follow up with primary tank builder supervisor upon discharge ARMAND SINGLETON APRN Oct 23, 2020 09:01
--- NOTE | 2020-10-23 09:07 | RAD ---
INDICATION: Reason: SEVERE UNCONTROLLED PAIN INCREASED WHEN EATING / Spl. Instructions: / History: COMPARISON: None. TECHNIQUE: Grayscale and color ultrasound images obtained through the abdomen. FINDINGS: Liver: Echotexture within normal limits. Gallbladder: There is some intraluminal content within. Somewhat distended. Common Bile Duct: 9 mm Pancreas: Visualized portions unremarkable. Right Kidney: Band of tissue within the right kidney could be from prominent column of Neil. Left Kidney: No hydronephrosis. Spleen: Unremarkable. Aorta/IVC: Atherosclerotic disease. IMPRESSION: * Common bile duct is dilated. * Echogenic material seen within the gallbladder which could be secondary to gallbladder sludge and which could obscure small stones or polyp Electronically signed by: Clint Neff MD (10/23/2020 9:04 AM) [id number]
--- NOTE | 2020-10-23 13:13 | DS ---
DATE OF DISCHARGE: 10/23/2020 ATTENDING PHYSICIAN: Dr. Ford. FINAL DISCHARGE DIAGNOSES: 1. Chest pain, coronary ischemia ruled out. 2. Known coronary artery disease with previous stents. 3. Essential hypertension. 4. Degenerative arthritis. 5. Mild essential tremor. 6. 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 HISTORY AND PHYSICAL: The patient is an 85-year-old female who lives alone. She was admitted with vague nonspecific chest pressure that is more abdominal in nature. She was sent here for further evaluation. PHYSICAL EXAMINATION: Please see the dictated note. PERTINENT LABORATORY AND X-RAY STUDIES: Admission hemoglobin was 13.5 g/dL, white count 7400. Three sets of cardiac enzymes negative for coronary ischemia. Electrolytes: Sodium 144 mEq, potassium 4.3, creatinine normal at 1.2 mg %. Nonfasting blood sugar 101. BNP was 563. She had abdominal ultrasound, which showed mild gallbladder sludge. Slight dilatation of the bile duct. No other symptoms. The rest of the detailed ultrasound was unremarkable. COURSE IN HOSPITAL: The patient was admitted. She was treated for vague somatic symptoms with some improvement. Cardiology consultation was entertained. Their recommendation is on the chart is noncardiac in nature. Therefore, she was feeling better. I talked with her at length. It has to do with family issues regarding her daughter and her relationship. Therefore, she is discharged home. She will follow up with Landy Parmar. There are no changes on her meds. She needs to continue her alprazolam, calcium, Coreg, cholecalciferol, Lexapro, vitamin B12, Zetia, nitroglycerin p.r.n., Protonix dose unchanged. The patient was then discharged from our hospital in stable condition with explicit drug and followup care. CLIFFORD/CHAVA DR: Charissa TID: [id number] CC: ALVIN JERRY
--- NOTE | 2020-10-23 21:27 | EKG ---
[address] [address] Test Date: 2020-10-22 Test Time: 09:56:42 Pat Name: ISABEL HERNANDEZ Department: Room: 107 A Gender: F Route Sales Delivery Driver: : 1935 Requested By: EDMAR SMITH Order Number: [id number] Reading MD: Measurements Intervals [place] Rate: 70 P: -18 [place]: 194 QRS: 34 QRSD: 86 T: 19 QT: 380 QTc: 413 Interpretive Statements PACEMAKER SPIKES NOTED RI6.02 No previous ECG available for comparison
--- NOTE | 2020-10-23 23:43 | EKG ---
[address] [address] Test Date: 2020-10-22 Test Time: 07:58:25 Pat Name: ISABEL HERNANDEZ Department: Room: [facility] A Gender: F Rn First Assistant: AJ : 1935 Requested By: JOCELIN LAUGHLIN Order Number: [id number] Reading MD: Measurements Intervals [place] Rate: 70 P: 17 [place]: 122 QRS: 54 QRSD: 88 T: 14 QT: 372 QTc: 404 Interpretive Statements SINUS RHYTHM NORMAL ECG RI6.02 No previous ECG available for comparison
== END 2020-10-23 10:45 | disposition home or self-care (01) ==
LOC: ER 07:53 → 1 SOUTH 09:45 → INTOOBSV 09:45 → ER 10:35
PROVIDERS: ADMIT Hospitalist; ATTEND Hospitalist
DX: R07.89 Other chest pain (principal); I25.10 Atherosclerotic heart disease of native coronary artery without angina pectoris; I10 Essential (primary) hypertension; M19.90 Unspecified osteoarthritis, unspecified site; G25.0 Essential tremor; E78.5 Hyperlipidemia, unspecified; K21.9 Gastro-esophageal reflux disease without esophagitis; I49.5 Sick sinus syndrome; I48.91 Unspecified atrial fibrillation; K58.9 Irritable bowel syndrome, unspecified; Z79.82 Long term (current) use of aspirin; Z95.5 Presence of coronary angioplasty implant and graft; Z95.1 Presence of aortocoronary bypass graft; Z95.0 Presence of cardiac pacemaker; Z90.710 Acquired absence of both cervix and uterus
CPT/HCPCS: 36415; 71045; 76700; 80048; 83880; 84484; 85025; 93005; 96374; 96375; 96376; 99291; G0378; J2405; J3010; G0379

== ENCOUNTER 2020-10-26 07:59 | Emergency (ER) | payer MEDICARE ==
[~2020-10-26] VITALS: Ht 157.5 cm; Wt 61.3 kg
[~2020-10-26 07:59] MED LIST changes: +EZET10TA20 PO
[2020-10-26 08:50] VITALS: BP 155/81
--- NOTE | 2020-10-26 08:54 | EKG ---
[address] [address] Test Date: 2020-10-26 Test Time: 08:32:41 Pat Name: ISABEL HERNANDEZ Department: Room: Gender: F Composite Boat Builder: AJ : 1935 Requested By: EDMAR SMITH Order Number: [id number] Reading MD: Measurements Intervals [place] Rate: 70 P: 13 [place]: 128 QRS: 36 QRSD: 84 T: 9 QT: 380 QTc: 413 Interpretive Statements SINUS RHYTHM NORMAL ECG RI6.02 No previous ECG available for comparison
--- NOTE | 2020-10-26 08:56 | RAD ---
AP portable chest. HISTORY: Chest pain AP view was taken of the chest. Heart is within normal limits in size. Left pacemaker is unchanged. T here is no pleural effusion. There are no confluent infiltrates. IMPRESSION: 1. No acute chest disease. Electronically signed by: Tico Waters MD (10/26/2020 8:54 AM) [facility]
[2020-10-26 09:03] LABS: BASO # 0.1 x10^3/uL (0.0-0.2); BASO % 1 % (0-3); EOS # 0.2 x10^3/uL (0.0-0.7); EOS % 3 % (0-3); HEMATOCRIT 38.9 % (36.0-47.0); HEMOGLOBIN 13.2 g/dL (12.0-15.5); LYMPH # 1.4 x10^3/uL (1.0-4.8); LYMPH % 20 % (24-48); MEAN CORPUSCULAR HEMOGLOBIN 30 pg (25-35); MEAN CORPUSCULAR HGB CONC 34 g/dL (31-37); MEAN CORPUSCULAR VOLUME 89 fL (79-100); MONO # 0.7 x10^3/uL (0.0-1.1); MONO % 10 % (0-9); NEUT # 4.6 x10^3uL (1.8-7.7); NEUT % 66 % (31-73); PLATELET COUNT 239 x10^3/uL (140-400); RED BLOOD COUNT 4.36 x10^6/uL (3.50-5.40); RED CELL DISTRIBUTION WIDTH 13.8 % (11.5-14.5)
--- NOTE | 2020-10-26 09:06 | PHYS DOC ---
Past History Past Medical History: CAD, GERD, High Cholesterol, Heart Disease, Hypertension Past Surgical History: Hysterectomy, Pacemaker Additional Past Surgical Histo: Coronary stents Smoking: Non-smoker Alcohol Use: None Drug Use: None Adult General Chief Complaint Chief Complaint: CHEST WALL PAIN [facility] HPI Patient is a 85-year-old female presenting for left-sided chest wall pain. This is a chronic issue. She was seen within the past week by myself and was admitted for cardiac observation. She had unremarkable troponins and EKGs, she was seen and evaluated by cardiology while inpatient status and it was deemed to be noncardiac chest pain with recommendations for close outpatient cardiology follow-up for stress test and other provocative testing as indicated. She does have known coronary artery disease with previous stents which put her at risk. Nothing known makes pain better, direct palpation over left sided inferior border of rib cage makes worse. Pain is sharp and focal with minimal radiation. There is no ripping or tearing sensation in chest. She wears her nitro patch daily, has had no other changes in medications Review of Systems Review of Systems Fourteen body systems of review of systems have been reviewed. See HPI for pertinent positives and negative responses, other odom all other systems are negative, non-pertinent or non-contributory Allergies Allergies Allergies Coded Allergies Type Severity Reaction Last Updated Verified cimetidine Allergy Intermediate 10/23/13 Yes digoxin Allergy Intermediate 10/23/13 Yes duloxetine Allergy Intermediate 10/23/13 Yes hydrochlorothiazide Allergy Intermediate 10/23/13 Yes ibandronate sodium Allergy Intermediate 10/23/13 Yes isosorbide Allergy Intermediate Shortness of Air 10/23/13 Yes levofloxacin Allergy Intermediate 10/23/13 Yes levothyroxine sodium Allergy Intermediate 10/23/13 Yes meloxicam Allergy Intermediate 10/23/13 Yes metoclopramide Allergy Intermediate 10/23/13 Yes metoprolol Allergy Intermediate 10/23/13 Yes nebivolol Allergy Intermediate 10/23/13 Yes nitrofurantoin Allergy Intermediate 10/23/13 Yes propranolol Allergy Intermediate 10/23/13 Yes ramipril Allergy Intermediate 10/23/13 Yes rofecoxib Allergy Intermediate 10/23/13 Yes rosuvastatin Allergy Intermediate 10/23/13 Yes salsalate Allergy Intermediate 10/23/13 Yes sulfamethazine Allergy Intermediate Anaphylaxis 10/23/13 Yes sulfamethoxazole Allergy Intermediate 10/23/13 Yes tegaserod Allergy Intermediate 10/23/13 Yes ticagrelor Allergy Intermediate 10/23/13 Yes trimethoprim Allergy Intermediate 10/23/13 Yes verapamil Allergy Intermediate 10/23/13 Yes Sulfa (Sulfonamide Antibiotics) Allergy Unknown 02/23/20 Yes yellow dye Allergy Unknown 03/20/20 Yes Physical Exam Physical Exam Constitutional: Well developed, age-appropriate, no acute distress, non-toxic appearance. HENT: Normocephalic, atraumatic, bilateral external ears normal, oropharynx moist, no oral exudates, nose normal. Eyes: PERRLA, EOMI, conjunctiva normal, no discharge. Neck: Normal range of motion, no tenderness, supple, no stridor. Cardiovascular: Heart rate regular, sinus rhythm, no murmurs rubs or gallops, left sided chest wall pain reproducible with palpation Lungs & Thorax: Bilateral breath sounds clear to auscultation Abdomen: Bowel sounds normal, soft, no tenderness, no masses, no pulsatile masses. Nonsurgical abdomen, no peritoneal signs Skin: Warm, dry, no erythema, no rash. Back: No tenderness, no CVA tenderness. Extremities: No tenderness, no cyanosis, no clubbing, ROM intact, no edema. Neurologic: Alert and oriented X 3, grossly normal motor & sensory function, no focal deficits noted. Psychologic: Anxious affect and mood Current Patient Data Vital Signs Vital Signs Date Time Temp Pulse Resp B/P (MAP) Pulse Ox O2 Delivery O2 Flow Rate FiO2 10/26/20 08:50 98.1 70 18 155/81 Room Air Lab Results Laboratory Tests Test 10/26/20 08:46 White Blood Count 7.0 x10^3/uL (4.0-11.0) Red Blood Count 4.36 x10^6/uL (3.50-5.40) Hemoglobin 13.2 g/dL (12.0-15.5) Hematocrit 38.9 % (36.0-47.0) Mean Corpuscular Volume 89 fL (79-100) Mean Corpuscular Hemoglobin 30 pg (25-35) Mean Corpuscular Hemoglobin Concent 34 g/dL (31-37) Red Cell Distribution Width 13.8 % (11.5-14.5) Platelet Count 239 x10^3/uL (140-400) Neutrophils (%) (Auto) 66 % (31-73) Lymphocytes (%) (Auto) 20 % (24-48) Monocytes (%) (Auto) 10 % (0-9) Eosinophils (%) (Auto) 3 % (0-3) Basophils (%) (Auto) 1 % (0-3) Neutrophils # (Auto) 4.6 x10^3uL (1.8-7.7) Lymphocytes # (Auto) 1.4 x10^3/uL (1.0-4.8) Monocytes # (Auto) 0.7 x10^3/uL (0.0-1.1) Eosinophils # (Auto) 0.2 x10^3/uL (0.0-0.7) Basophils # (Auto) 0.1 x10^3/uL (0.0-0.2) Sodium Level 143 mmol/L (136-145) Potassium Level 4.0 mmol/L (3.5-5.1) Chloride Level 105 mmol/L (98-107) Carbon Dioxide Level 27 mmol/L (21-32) Anion Gap 11 (6-14) Blood Urea Nitrogen 24 mg/dL (7-20) Creatinine 1.2 mg/dL (0.6-1.0) Estimated GFR (Cockcroft-Gault) 42.9 BUN/Creatinine Ratio 20 (6-20) Glucose Level 107 mg/dL (70-99) Calcium Level 9.8 mg/dL (8.5-10.1) Total Bilirubin 0.4 mg/dL (0.2-1.0) Aspartate Amino Transf (AST/SGOT) 15 U/L (15-37) Alanine Aminotransferase (ALT/SGPT) 15 U/L (14-59) Alkaline Phosphatase 96 U/L (46-116) Troponin I Quantitative < 0.017 ng/mL (0-0.055) FL-Otp-Z-Type Natriuretic Peptide 845 pg/mL (0-449) Total Protein 6.9 g/dL (6.4-8.2) Albumin 4.1 g/dL (3.4-5.0) Albumin/Globulin Ratio 1.5 (1.0-1.7) EKG EKG EKG myself 0840 hrs. as sinus rhythm at 70 bpm, unremarkable intervals, no axis deviation, T wave inversion noted in lead III otherwise no obvious ischemic findings, no STEMI Radiology/Procedures Radiology/Procedures AP portable chest. HISTORY: Chest pain AP view was taken of the chest. Heart is within normal limits in size. Left pacemaker is unchanged. There is no pleural effusion. There are no confluent infiltrates. IMPRESSION: 1. No acute chest disease. Electronically signed by: Tico Waters MD (10/26/2020 8:54 AM) [facility] Heart Score C/O Chest Pain: Yes HEART Score for Chest Pain: HEART Score for Chest Pain Response (Comments) Value History Moderately Suspicious 1 ECG Normal 0 Age > 65 2 Risk Factors >3 Risk Factors or Hx CAD 2 Troponin < Normal Limit 0 Total 5 Risk Factors: Risk Factors: DM, Current or recent (<one month) smoker, HTN, HLP, family history of CAD, obesity. Risk Scores: Risk Factors: DM, Current or recent (<one month) smoker, HTN, HLP, family history of CAD, obesity. Course & Med Decision Making Course & Med Decision Making ABCs unremarkable. I disclosed entirety of ER findings and discussed most likely diagnosis of noncardiac chest wall pain. Patient had extensive work-up today and at last ER visit was subsequent hospitalization, there has been no change in pain. I discussed little indication for further diagnostic work-up in ER setting and/or need for repeat hospitalization. Patient is anxious but understands, son is at bedside and understands clinical situation. As such, I stressed need for continued supportive care practices such as Tylenol and heating pads for likely costochondritis versus other musculoskeletal type of chest pain with close outpatient follow-up to review today's ER visit. Strict return precautions were also discussed at length with good understanding by patient. Patient voiced understanding and agreement with the plan. Patient knows to come back for repeat evaluation if concerning signs or symptoms present prior to outpatient follow-up. Hemodynamically stable, ambulatory and well-appearing at time of disposition. Dragon Disclaimer Dragon Disclaimer This electronic medical record was generated, in whole or in part, using a voice recognition dictation system. Departure Departure: Impression: Primary Impression: Atypical chest pain Disposition: HOME / SELF CARE / HOMELESS Condition: STABLE Referrals: GARFIELD BURRELL (PCP) Patient Instructions: Chest Wall Pain Additional Instructions: As discussed prior to your departure, your vital signs, physical examination and comprehensive ER work-up was unremarkable for any emergent or surgical issues. We reviewed your recent hospitalization for cardiac observation that was also negative. As discussed, it is unlikely you are suffering from true cardiac ischemia at this time requiring repeat hospitalization and invasive cardiac intervention. With that said, you do have risk factors and it is imperative that you follow-up with your parcel carrier in an outpatient setting for repeat evaluation. As discussed, you are likely suffering from reproducible chest wall pain that should resolve with continued supportive care practices such as Tylenol use, heating pad and topical lidocaine patches. Further work-up might be indicated as deemed necessary by your primary care physician and some individuals have been referred to physical therapy and pain management physicians in the past for said issues. If any concerning signs or symptoms present prior to outpatient follow-up please do not hesitate to come back for repeat evaluation. It was a pleasure to take care of you and I wish you the best going forward EDMAR SMITH DO Oct 26, 2020 09:06
[2020-10-26 09:13] LABS: CREATININE 1.2 mg/dL (0.6-1.0); GFR 42.9
[2020-10-26 09:26] LABS: ALBUMIN 4.1 g/dL (3.4-5.0); ALBUMIN/GLOBULIN RATIO 1.5 (1.0-1.7); CALCIUM 9.8 mg/dL (8.5-10.1); TOTAL BILIRUBIN 0.4 mg/dL (0.2-1.0); TOTAL PROTEIN 6.9 g/dL (6.4-8.2)
== END 2020-10-26 09:47 | disposition home or self-care (01) ==
LOC: ER 07:59
DX: R07.89 Other chest pain (principal); K21.9 Gastro-esophageal reflux disease without esophagitis; E78.5 Hyperlipidemia, unspecified; I10 Essential (primary) hypertension; Z90.710 Acquired absence of both cervix and uterus; Z88.1 Allergy status to other antibiotic agents; Z88.5 Allergy status to narcotic agent; Z88.3 Allergy status to other anti-infective agents
CPT/HCPCS: 36415; 71045; 80053; 83880; 84484; 85025; 93005; 99285-25

== ENCOUNTER → 2021-02-27 | Outpatient (CLI) | payer MEDICARE ==
[~2021-02-27] MED LIST changes: +CEPH500C PO; -LISI-517 PO; +LISI5TAB15 PO; +TIZA-75 PO; -TIZA4TAB2 PO
--- NOTE | 2021-02-27 16:03 | RAD ---
INDICATION : Routine Screening. COMPARISON: [facility] including January 2019 TECHNIQUE: Standard mammogram screening views of the bilateral breasts were obtained. CAD was utilize d. FINDINGS: The breasts are scattered density. No definite suspicious mass. There is repeat demonstration of ray ign-appearing calcifications as well as pacemaker. IMPRESSION: BI-RADS Category 2: Benign findings. Recommend repeat screening exam in one year. The patient was placed into the recall system with a suggested recall date for follow up imaging. Mammography is the most sensitive method for finding small breast cancers, but it does not detect the m all and is not a substitute for careful clinical examination. A negative mammogram does not negate a clinically suspicious finding and should not result in delay in biopsying a clinically suspicious abnormality. Electronically signed by: Clint Neff MD (02/27/2021 4:01 PM) [id number]
== END ==
LOC: MAMMO 14:42
PROVIDERS: ATTEND Physician Assistant Medical
DX: Z12.31 Encounter for screening mammogram for malignant neoplasm of breast (principal)
CPT/HCPCS: 77067

== ENCOUNTER 2021-03-22 13:07 | Emergency (ER) | payer MEDICARE ==
[~2021-03-22] VITALS: Ht 157.5 cm; Wt 61.3 kg
[~2021-03-22 13:07] MED LIST changes: -CEPH500C PO
[2021-03-22 14:25] VITALS: BP 144/78
[2021-03-22 14:32] LABS: BILIRUBIN,URINE NEG (NEG); CLARITY,URINE CLOUDY; COLOR,URINE YELLOW; GLUCOSE,URINE NEG (NEG); NITRITE,URINE NEG (NEG); UROBILINOGEN,URINE 0.2 mg/dL (0.2 mg/dL)
--- NOTE | 2021-03-22 14:32 | PHYS DOC ---
Past History Past Medical History: CAD, GERD, High Cholesterol, Heart Disease, Hypertension (PAMELA LUCAS APRN) Past Surgical History: Hysterectomy, Pacemaker Additional Past Surgical Histo: Coronary stents (PAMELA LUCAS APRN) Smoking: Non-smoker Alcohol Use: None Drug Use: None (PAMELA LUCAS APRN) General Adult EDM: Chief Complaint: PAIN ON URINATION HPI: HPI: Patient is an 85-year-old female who presents to the emergency department for dysuria, urinary frequency and urgency and difficulty initiating her stream that started 7 days ago. Patient reports that she was seen at Dr. Wolf's office and was prescribed amoxicillin for 7 days, she finished it yesterday but reports that her symptoms never improved. She states that she was unable to urinate in the office so a urinalysis was never performed. Patient denies flank pain, fevers, abdominal pain, hematuria, nausea, vomiting. (PAMELA LUCAS APRN) Review of Systems: Review of Systems: Constitutional: See HPI GI: See HPI : See HPI Musculoskeletal: See HPI (PAMELA LUCAS APRN) Allergies: Allergies: Allergies Coded Allergies Type Severity Reaction Last Updated Verified cimetidine Allergy Intermediate 10/23/13 Yes digoxin Allergy Intermediate 10/23/13 Yes duloxetine Allergy Intermediate 10/23/13 Yes hydrochlorothiazide Allergy Intermediate 10/23/13 Yes ibandronate sodium Allergy Intermediate 10/23/13 Yes isosorbide Allergy Intermediate Shortness of Air 10/23/13 Yes levofloxacin Allergy Intermediate 10/23/13 Yes levothyroxine sodium Allergy Intermediate 10/23/13 Yes meloxicam Allergy Intermediate 10/23/13 Yes metoclopramide Allergy Intermediate 10/23/13 Yes metoprolol Allergy Intermediate 10/23/13 Yes nebivolol Allergy Intermediate 10/23/13 Yes nitrofurantoin Allergy Intermediate 10/23/13 Yes propranolol Allergy Intermediate 10/23/13 Yes ramipril Allergy Intermediate 10/23/13 Yes rofecoxib Allergy Intermediate 10/23/13 Yes rosuvastatin Allergy Intermediate 10/23/13 Yes salsalate Allergy Intermediate 10/23/13 Yes sulfamethazine Allergy Intermediate Anaphylaxis 10/23/13 Yes sulfamethoxazole Allergy Intermediate 10/23/13 Yes tegaserod Allergy Intermediate 10/23/13 Yes ticagrelor Allergy Intermediate 10/23/13 Yes trimethoprim Allergy Intermediate 10/23/13 Yes verapamil Allergy Intermediate 10/23/13 Yes Sulfa (Sulfonamide Antibiotics) Allergy Unknown 02/23/20 Yes yellow dye Allergy Unknown 03/20/20 Yes (PAMELA LUCAS APRN) Physical Exam: PE: Constitutional: Well developed, well nourished, no acute distress, non-toxic appearance. [] HENT: Normocephalic, atraumatic, bilateral external ears normal, oropharynx moist, no oral exudates, nose normal. [] Eyes: PERRL, EOMI, conjunctiva normal, no discharge. [] Neck: Normal range of motion, no stridor Cardiovascular:Heart rate regular rhythm, no murmur [] Lungs & Thorax: Bilateral breath sounds clear to auscultation [] Abdomen: Bowel sounds normal, soft, no tenderness, no masses, no pulsatile masses. [] Skin: Warm, dry, no erythema, no rash. [] Back: No tenderness, no CVA tenderness. [] Extremities: No tenderness, no cyanosis, no clubbing, ROM intact, no edema. [] Neurologic: Alert and oriented X 3, normal motor function, normal sensory function, no focal deficits noted. [] Psychologic: Affect normal, judgement normal, mood normal. [] (PAMELA LUCAS APRN) Current Patient Data: Labs: Laboratory Tests Test 03/22/21 13:50 Urine Collection Type Clean catch Urine Color Yellow Urine Clarity Cloudy Urine pH 6.0 Urine Specific [place] 1.015 Urine Protein Neg Urine Glucose (UA) Neg mg/dL Urine Ketones (Stick) Neg mg/dL Urine Blood Large Urine Nitrite Neg Urine Bilirubin Neg Urine Urobilinogen Dipstick 0.2 mg/dL Urine Leukocyte Esterase Large Urine RBC 11-20 /HPF Urine WBC Tntc /HPF Urine Squamous Epithelial Cells Few /LPF Urine Bacteria Mod /HPF (PAMELA LUCAS APRN) EKG: EKG: [] (PAMELA LUCAS APRN) Radiology/Procedures: Radiology/Procedures: [] (PAMELA LUCAS APRN) Heart Score: C/O Chest Pain: N/A Risk Factors: Risk Factors: DM, Current or recent (<one month) smoker, HTN, HLP, family history of CAD, obesity. Risk Scores: Score 0 - 3: 2.5% MACE over next 6 weeks - Discharge Home Score 4 - 6: 20.3% MACE over next 6 weeks - Admit for Clinical Observation Score 7 - 10: 72.7% MACE over next 6 weeks - Early Invasive Strategies (PAMELA LUCAS APRN) Course & Med Decision Making: Course & Med Decision Making Pertinent Labs and Imaging studies reviewed. (See chart for details) [] Patient presents to the emergency department for urinary complaints. Patient did finish amoxicillin yesterday for a presumed urinary tract infection but a urinalysis was never performed. A urinalysis was performed that showed urinary tract infection. Patient be discharged home with Keflex as she is allergic to fluoroquinolones and sulfa drugs. Patient advised to increase her fluids and avoid bladder irritants. Patient advised to follow-up with her primary care provider on Thursday. I discussed with patient all findings and diagnostic testing as well as the need to follow-up with PCP for further evaluation and treatment or return to the ER if any new or worsening symptoms. Strict return precautions were also discussed at length. Patient voiced understanding and agreement with the plan. Patient is hemodynamically stable at the time of disposition. (PAMELA LUCAS APRN) Dragon Disclaimer: Dragon Disclaimer: This electronic medical record was generated, in whole or in part, using a voice recognition dictation system. (PAMELA LUCAS APRN) Attending Co-Sign The patient was seen and interviewed as well as examined at the bedside. The chart was reviewed. The case was discussed. Agree with the plan of care. (AMANDA ROGERS DO) Departure Departure: Impression: Primary Impression: Urinary tract infection Qualified Codes: N30.01 - Acute cystitis with hematuria Disposition: HOME / SELF CARE / HOMELESS Condition: GOOD Referrals: GARFIELD BURRELL (PCP) Patient Instructions: Urinary Tract Infection Additional Instructions: You were seen in the emergency department today for dysuria, urinary frequency and urgency. Your urinalysis showed a urinary tract infection. You will be treated with an antibiotic. Please start and finish it completely. Increase your fluids and avoid bladder irritants like caffeine, alcohol or sugary beverages. Follow-up with your primary care provider on Thursday regarding your ER visit. Return to the emergency department if you develop worsening of your symptoms or symptom persistence, intractable nausea or vomiting, abdominal pain, back pain, high fevers refractory to treatment, hematuria. Scripts Cephalexin (KEFLEX) 500 Mg Capsule 1 CAP PO BID for UTI for 7 Days, #14 CAP 0 Refills Prov: PAMELA LUCAS APRN 03/22/21 PAMELA LUCAS APRN Mar 22, 2021 14:31 AMANDA ROGERS DO Mar 25, 2021 10:27
[2021-03-22 14:33] LABS: BACTERIA,URINE MOD /HPF (0-FEW); SQUAMOUS EPITHELIAL CELL,UR FEW /LPF; WBC,URINE TNTC /HPF (0-4)
[2021-03-22] MEDS ORDERED: CEPHALEXIN 250 MG CAPSULE PO ONE (15:00)
[2021-03-22] MEDS ORDERED: CEPH500C PO (15:01)
== END 2021-03-22 15:29 | disposition home or self-care (01) ==
LOC: ER 13:07
DX: N39.0 Urinary tract infection, site not specified (principal); K21.9 Gastro-esophageal reflux disease without esophagitis; E78.5 Hyperlipidemia, unspecified; I10 Essential (primary) hypertension; Z90.710 Acquired absence of both cervix and uterus; Z88.0 Allergy status to penicillin; Z88.1 Allergy status to other antibiotic agents; Z88.6 Allergy status to analgesic agent; Z88.8 Allergy status to other drugs, medicaments and biological substances
CPT/HCPCS: 81001; 87086; 99283-25

== ENCOUNTER → 2021-06-20 | Outpatient (CLI) | payer MEDICARE ==
[~2021-06-20] MED LIST changes: +CEPH500C PO
--- NOTE | 2021-06-20 11:08 | RAD ---
CT Head without contrast 06/20/2021 10:44 AM Indication: Repeated falls, instability. Head trauma. Comparison: CT head without contrast August 15, 2020 Findings: No intracranial hemorrhage is seen. No evidence of acute territorial infarct is seen. Note that CT is limited in sensitivity for acute ischemia. Age-related atrophic changes are noted. Mild patchy periventricular and deep white matter hypoattenuation is similar. Finding is nonspecific, but most commonly relates to chronic small vessel disease. No abnormal extra axial fluid collection is i dentified. No mass effect or midline shift is seen. No acute osseous abnormalities are seen. Impression: 1. No acute intracranial process identified 2. Age-related atrophy, and similar mild changes of chronic small vessel disease as described CT DOSING PQRS STATEMENT: One or more of the following individualized dose reduction techniques were utilized for this examinat ion: 1. Automated exposure control 2. Adjustment of the mA and/or kV according to patient size 3. Use of iterative reconstruction technique Electronically signed by: Lucho Bianchi MD (06/20/2021 11:06 AM) [id number]
[2021-06-20 11:35] LABS: ALBUMIN 3.8 g/dL (3.4-5.0); ALBUMIN/GLOBULIN RATIO 1.2 (1.0-1.7); CALCIUM 9.9 mg/dL (8.5-10.1); GFR 52.8; TOTAL BILIRUBIN 0.8 mg/dL (0.2-1.0); TOTAL PROTEIN 6.9 g/dL (6.4-8.2)
[2021-06-20 18:03] LABS: CHOLESTEROL/HDL RATIO 2.6
== END ==
LOC: CT 10:28
PROVIDERS: ATTEND Nurse Practitioner
DX: I73.9 Peripheral vascular disease, unspecified (principal); G31.9 Degenerative disease of nervous system, unspecified; R29.6 Repeated falls; E78.00 Pure hypercholesterolemia, unspecified
CPT/HCPCS: 36415; 70450; 80053; 80061

== ENCOUNTER 2021-07-29 11:03 | Observation (INO) | payer MEDICARE ==
[~2021-07-29] VITALS: Ht 157.5 cm; Wt 60.3 kg
[~2021-07-29 11:03] MED LIST changes: -OMEP20TA8 PO; +OMEP20TA91 PO
[2021-07-29] MEDS ORDERED: ASPIRIN CHEWABLE 81 MG TABLET. PO ONE (11:15)
[2021-07-29] MEDS ORDERED: MORPHINE SULFATE 2 MG/ML DISP.SYRIN. IV ONE (11:15)
--- NOTE | 2021-07-29 11:18 | PHYS DOC ---
Past History Past Medical History: CAD, GERD, High Cholesterol, Heart Disease, Hypertension Past Surgical History: Hysterectomy, Pacemaker Additional Past Surgical Histo: Coronary stents Smoking: Non-smoker Alcohol Use: None Drug Use: None General Adult EDM: Chief Complaint: CHEST PAIN HPI: HPI: Patient is an 86-year-old female who presents to the emergency department via EMS for chest pain. Patient reports that she started experiencing left-sided chest pain under her breast that started at 9:00 this morning. Patient reports that she felt sleepy so she went to bed thinking that would help her chest pain she woke up and she continued to have the chest pain. She describes it as a tightness. She rates it 7 out of 10. No radiation of pain. No alleviating or aggravating factors. Patient has a history of angina and wears a nitro patch to her right chest that she changes daily. She reports placing a new nitro patch on this morning and she took her morning meds. Patient also took 81 mg of aspirin prior to ER arrival. Patient reports that her chest pain currently feels different than her angina. She denies nausea, vomiting, shortness of breath, dizziness. Also has a history of stents, pacemaker, heart disease, hypertension, hyperlipidemia. Review of Systems: Review of Systems: Respiratory: See HPI Cardiovascular: See HPI GI: See HPI Musculoskeletal: Denies chest wall pain Neurologic: See HPI Allergies: Allergies: Allergies Coded Allergies Type Severity Reaction Last Updated Verified cimetidine Allergy Intermediate 07/29/21 Yes digoxin Allergy Intermediate 07/29/21 Yes duloxetine Allergy Intermediate 07/29/21 Yes hydrochlorothiazide Allergy Intermediate 07/29/21 Yes ibandronate sodium Allergy Intermediate 07/29/21 Yes isosorbide Allergy Intermediate Shortness of Air 07/29/21 Yes levofloxacin Allergy Intermediate 07/29/21 Yes levothyroxine sodium Allergy Intermediate 07/29/21 Yes meloxicam Allergy Intermediate 07/29/21 Yes metoclopramide Allergy Intermediate 10/23/13 Yes metoprolol Allergy Intermediate 10/23/13 Yes nebivolol Allergy Intermediate 10/23/13 Yes nitrofurantoin Allergy Intermediate 07/29/21 Yes propranolol Allergy Intermediate 07/29/21 Yes ramipril Allergy Intermediate 07/29/21 Yes rofecoxib Allergy Intermediate 07/29/21 Yes rosuvastatin Allergy Intermediate 07/29/21 Yes salsalate Allergy Intermediate 07/29/21 Yes sulfamethazine Allergy Intermediate Anaphylaxis 07/29/21 Yes sulfamethoxazole Allergy Intermediate 07/29/21 Yes tegaserod Allergy Intermediate 07/29/21 Yes ticagrelor Allergy Intermediate 07/29/21 Yes trimethoprim Allergy Intermediate 07/29/21 Yes verapamil Allergy Intermediate 07/29/21 Yes Sulfa (Sulfonamide Antibiotics) Allergy Unknown 07/29/21 Yes yellow dye Allergy Unknown 07/29/21 Yes Physical Exam: PE: Constitutional: Well developed, well nourished, no acute distress, non-toxic appearance. [] HENT: Normocephalic, atraumatic, bilateral external ears normal, oropharynx moist, no oral exudates, nose normal. [] Eyes: PERRL, EOMI, conjunctiva normal, no discharge. [] Neck: Normal range of motion, no stridor Cardiovascular:Heart rate regular rhythm, no murmur, no chest wall tenderness [] Lungs & Thorax: Bilateral breath sounds clear to auscultation [] Abdomen: Bowel sounds normal, soft, no tenderness, no abdominal guarding or rigidity, no masses, no pulsatile masses. [] Skin: Warm, dry, no erythema, no rash. [] Back: No tenderness, normal range of motion Extremities: No tenderness, no cyanosis, no clubbing, ROM intact, no edema. [] Neurologic: Alert and oriented X 3, normal motor function, normal sensory function, no focal deficits noted. [] Psychologic: Affect normal, judgement normal, mood normal. [] Current Patient Data: Labs: Laboratory Tests Test 07/29/21 11:42 White Blood Count 6.3 x10^3/uL Red Blood Count 4.14 x10^6/uL Hemoglobin 12.1 g/dL Hematocrit 36.3 % Mean Corpuscular Volume 88 fL Mean Corpuscular Hemoglobin 29 pg Mean Corpuscular Hemoglobin Concent 34 g/dL Red Cell Distribution Width 15.0 % Platelet Count 211 x10^3/uL Neutrophils (%) (Auto) 55 % Lymphocytes (%) (Auto) 29 % Monocytes (%) (Auto) 11 % Eosinophils (%) (Auto) 4 % Basophils (%) (Auto) 1 % Neutrophils # (Auto) 3.5 x10^3uL Lymphocytes # (Auto) 1.8 x10^3/uL Monocytes # (Auto) 0.7 x10^3/uL Eosinophils # (Auto) 0.3 x10^3/uL Basophils # (Auto) 0.1 x10^3/uL Sodium Level 141 mmol/L Potassium Level 3.7 mmol/L Chloride Level 104 mmol/L Carbon Dioxide Level 27 mmol/L Anion Gap 10 Blood Urea Nitrogen 31 mg/dL Creatinine 0.9 mg/dL Estimated GFR (Cockcroft-Gault) 59.7 BUN/Creatinine Ratio 34 Glucose Level 97 mg/dL Calcium Level 9.8 mg/dL Total Bilirubin 0.6 mg/dL Aspartate Amino Transf (AST/SGOT) 17 U/L Alanine Aminotransferase (ALT/SGPT) 15 U/L Alkaline Phosphatase 108 U/L Troponin I High Sensitivity 11 ng/L Total Protein 6.3 g/dL Albumin 3.6 g/dL Albumin/Globulin Ratio 1.3 Current Medications Medications (Trade) Dose Ordered Sig/Jing Route PRN Reason Start Time Stop Time Status Last Admin Dose Admin Aspirin (Aspirin Chewable) 243 mg 1X ONCE PO 07/29/21 11:15 07/29/21 11:16 DC Morphine Sulfate (Morphine 2mg Syringe) 2 mg 1X ONCE IV 07/29/21 11:15 07/29/21 11:16 DC 07/29/21 11:38 EKG: EKG: [] EKG performed by ER staff at 1123 shows sinus rhythm with a rate of 70, QTC of 415, no STEMI read by Dr. Boogie 1125 Radiology/Procedures: Radiology/Procedures: []PROCEDURE: PORTABLE CHEST 1V XR CHEST 1V History: Reason: chest pain / Spl. Instructions: / History: Comparison: October 26, 2020 Findings: Mild interstitial thickening with ill-defined opacities. No pleural effusion. No pneumothorax. Enlarged cardiac size, unchanged. Stable left-sided pacemaker. Impression: 1. Mild interstitial thickening with ill-defined opacities, can be seen with pulmonary edema or infection. Electronically signed by: Ja Parks DO (07/29/2021 12:03 PM) [id number] DICTATED AND SIGNED BY: JA PARKS DO DATE: 07/29/21 1202 CC: PAMELA LUCAS APRN; GARFIELD BURRELL PA ~ Heart Score: C/O Chest Pain: Yes HEART Score for Chest Pain: HEART Score for Chest Pain Response (Comments) Value History Moderately Suspicious 1 ECG Nonspecific Repolarizatio 1 Age > 65 2 Risk Factors >3 Risk Factors or Hx CAD 2 Troponin < Normal Limit 0 Total 6 Risk Factors: Risk Factors: DM, Current or recent (<one month) smoker, HTN, HLP, family history of CAD, obesity. Risk Scores: Score 0 - 3: 2.5% MACE over next 6 weeks - Discharge Home Score 4 - 6: 20.3% MACE over next 6 weeks - Admit for Clinical Observation Score 7 - 10: 72.7% MACE over next 6 weeks - Early Invasive Strategies Course & Med Decision Making: Course & Med Decision Making Pertinent Labs and Imaging studies reviewed. (See chart for details) [] Patient presents to the emergency department for left-sided chest pain that started this morning at 9:00. Patient has a history of angina and does wear a nitro patch but reports that this feels differently than her neck angina pain. Patient took 81 mg of aspirin so the remaining dose was given in the emergency department for a full 324. Patient was given morphine for pain. Work-up in the ER consisted of blood work including troponin, EKG and chest x-ray. Patient's lab work was unremarkable, she does not have a positive troponin. Chest x-ray shows mild interstitial ill-defined opacities pulmonary edema versus pneumonia. Patient's heart score is 6. Due to this, she will need to be admitted for chest pain rule out with serial troponins. I discussed this with Dr. Ford who agreed to admit the patient for observation for chest pain, he advised me to order 40 mg of Lasix IV push. She I discussed patient's findings with her as well as care plan she is agreeable to admission. ER bridge orders placed at this time 1255. Brennaon Disclaimer: Petr Disclaimer: This electronic medical record was generated, in whole or in part, using a voice recognition dictation system. Departure Departure: Impression: Primary Impression: Chest pain Qualified Codes: R07.9 - Chest pain, unspecified Disposition: ADMITTED INPATIENT Admitting Physician: Judah Ford Condition: STABLE Referrals: GARFIELD BURRELL (PCP) PAMELA LUCAS APRN Jul 29, 2021 11:18
--- NOTE | 2021-07-29 12:05 | RAD ---
XR CHEST 1V History: Reason: chest pain / Spl. Instructions: / History: Comparison: October 26, 2020 Findings: Mild interstitial thickening with ill-defined opacities. No pleural effusion. No pneumothorax. Enlarg ed cardiac size, unchanged. Stable left-sided pacemaker. Impression: 1. Mild interstitial thickening with ill-defined opacities, can be seen with pulmonary edema or infe ction. Electronically signed by: Ja Mcbride DO (07/29/2021 12:03 PM) [id number]
[2021-07-29 12:22] LABS: BASO # 0.1 x10^3/uL (0.0-0.2); BASO % 1 % (0-3); EOS # 0.3 x10^3/uL (0.0-0.7); EOS % 4 % (0-3); HEMATOCRIT 36.3 % (36.0-47.0); HEMOGLOBIN 12.1 g/dL (12.0-15.5); LYMPH # 1.8 x10^3/uL (1.0-4.8); LYMPH % 29 % (24-48); MEAN CORPUSCULAR HEMOGLOBIN 29 pg (25-35); MEAN CORPUSCULAR HGB CONC 34 g/dL (31-37); MEAN CORPUSCULAR VOLUME 88 fL (79-100); MONO # 0.7 x10^3/uL (0.0-1.1); MONO % 11 % (0-9); NEUT # 3.5 x10^3uL (1.8-7.7); NEUT % 55 % (31-73); PLATELET COUNT 211 x10^3/uL (140-400); RED BLOOD COUNT 4.14 x10^6/uL (3.50-5.40); WHITE BLOOD COUNT 6.3 x10^3/uL (4.0-11.0)
[2021-07-29 12:31] LABS: CALCIUM 9.8 mg/dL (8.5-10.1); CREATININE 0.9 mg/dL (0.6-1.0); GFR 59.7; POTASSIUM 3.7 mmol/L (3.5-5.1)
[2021-07-29 12:37] LABS: ALBUMIN 3.6 g/dL (3.4-5.0); ALBUMIN/GLOBULIN RATIO 1.3 (1.0-1.7); TOTAL BILIRUBIN 0.6 mg/dL (0.2-1.0); TOTAL PROTEIN 6.3 g/dL (6.4-8.2)
[2021-07-29] MEDS ORDERED: FUROSEMIDE 40 MG/4 ML VIAL IVP ONE (13:15)
[2021-07-29] MEDS ORDERED: MORPHINE SULFATE 2 MG/ML DISP.SYRIN. IVP PRN (13:15)
[2021-07-29 14:31] VITALS: BP 144/78
[2021-07-29 20:32] VITALS: BP 124/83
[2021-07-30 00:40] VITALS: BP 131/80
[2021-07-30 04:50] VITALS: BP 122/76
[2021-07-30] MEDS ORDERED: ACETAMINOPHEN 325 MG TABLET PO PRN (05:00)
[2021-07-30 06:06] LABS: BASO % 1 % (0-3); EOS # 0.3 x10^3/uL (0.0-0.7); EOS % 5 % (0-3); HEMATOCRIT 36.5 % (36.0-47.0); HEMOGLOBIN 12.1 g/dL (12.0-15.5); LYMPH # 1.8 x10^3/uL (1.0-4.8); LYMPH % 30 % (24-48); MEAN CORPUSCULAR HEMOGLOBIN 29 pg (25-35); MEAN CORPUSCULAR HGB CONC 33 g/dL (31-37); MEAN CORPUSCULAR VOLUME 88 fL (79-100); MONO # 0.7 x10^3/uL (0.0-1.1); MONO % 11 % (0-9); NEUT # 3.3 x10^3uL (1.8-7.7); NEUT % 53 % (31-73); PLATELET COUNT 209 x10^3/uL (140-400); RED BLOOD COUNT 4.14 x10^6/uL (3.50-5.40); RED CELL DISTRIBUTION WIDTH 14.7 % (11.5-14.5); WHITE BLOOD COUNT 6.2 x10^3/uL (4.0-11.0)
[2021-07-30 06:21] LABS: ALBUMIN 3.5 g/dL (3.4-5.0); ALBUMIN/GLOBULIN RATIO 1.3 (1.0-1.7); CALCIUM 9.7 mg/dL (8.5-10.1); CREATININE 1.1 mg/dL (0.6-1.0); GFR 47.3; POTASSIUM 3.3 mmol/L (3.5-5.1); TOTAL BILIRUBIN 0.7 mg/dL (0.2-1.0); TOTAL PROTEIN 6.2 g/dL (6.4-8.2)
--- NOTE | 2021-07-30 06:39 | EKG ---
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
--- NOTE | 2021-07-30 08:09 | PDOC2 ---
CARDIAC CONSULT DATE OF CONSULT DOS: DATE: 07/30/21 TIME: 08:03 REASON FOR CONSULT Reason for Consult Chest pain REFERRING PHYSICIAN Referring Physician Rossi Daniels APRN SOURCE Source: Chart review, Patient HPI History of Present Illness This is an 86 yo female who presented secondary chest pain. Patient reports pain began yesterday morning. Was located under her left breast. Was not burning, stabbing, sharp, or pressure-like. Just reports its an an abnormal discomfort, "warm feeling". [place] a little nauseated. No associted dizziness, diaphoresis, or shortness of breath. Pain did not radiate. Called friend and then family member who recommended her to call EMS. Prior to EMS arrival, patient reports losing her balance and falling to the ground on her left knee and left shoulder. Denies any precipitating dizziness or lightheadedness. Did not hit her head. No LOC. Does complains of aching in the left shoulder this morning. Has had no further pain in her chest. PAST MEDICAL HISTORY Past Medical History CAD s/p PCI/stents placement SSS s/p PPM with more recent generator change HTN HLP GERD PAST SURGICAL HISTORY Past Surgical History: Pacemaker FAMILY HISTORY Family History: Diabetes, Heart Disease, Hypertension SOCIAL HISTORY Smoke: No ALCOHOL: none Drugs: None Lives: Alone CURRENT MEDICATIONS Current Medications Current Medications Aspirin (Aspirin Chewable) 243 mg 1X ONCE PO ; Start 07/29/21 at 11:15; Stop 07/29/21 at 11:16; Status DC Morphine Sulfate (Morphine 2mg Syringe) 2 mg 1X ONCE IV Last administered on 07/29/21at 11:38; Start 07/29/21 at 11:15; Stop 07/29/21 at 11:16; Status DC Morphine Sulfate (Morphine 2mg Syringe) 2 mg PRN Q2HR PRN IVP PAIN; Start 07/29/21 at 13:15; Stop 07/30/21 at 13:14 Furosemide (Lasix) 40 mg 1X ONCE IVP Last administered on 07/29/21at 14:17; Start 07/29/21 at 13:15; Stop 07/29/21 at 13:20; Status DC Acetaminophen (Tylenol) 650 mg PRN Q6HRS PRN PO MILD PAIN / TEMP > 100.3'F Last administered on 07/30/21at 05:01; Start 07/30/21 at 05:00 Active Scripts Active Keflex (Cephalexin) 500 Mg Capsule 1 Cap PO BID 7 Days Protonix (Pantoprazole Sodium) 40 Mg Tablet.dr 1 Tab PO DAILY Reported Zetia (Ezetimibe) 10 Mg Tablet 10 Mg PO HS Vitamin B-12 (Cyanocobalamin (Vitamin B-12)) 1,000 Mcg Tablet 1 Tab PO DAILY LAST DOSE GIVEN: DATE: TODAY TIME: AM NEXT DOSE DUE: DATE: TOMORROW TIME: AM [Nitroglycerin Patch] 0.4 Mg TOP DAILY LAST DOSE GIVEN: DATE: TODAY TIME: AM NEXT DOSE DUE: DATE: TOMORROW TIME: AM Citalopram Hbr (Citalopram Hydrobromide) 20 Mg Tablet 20 Mg PO DAILY LAST DOSE GIVEN: DATE: TODAY TIME: AM NEXT DOSE DUE: DATE: TOMORR TIME: AM Coreg (Carvedilol) 3.125 Mg Tablet 3.125 Mg PO BIDWMEALS LAST DOSE GIVEN: DATE: TIME: WITH BREAKFAST NEXT DOSE DUE: DATE: TIME: WITH DINNER [Calcium + Magnesium] 1 Tab PO DAILY NOT GIVEN IN THE HOSPITAL NEXT DOSE DUE: DATE: TOMORROW TIME: AM Alprazolam 0.5 Mg Tablet 0.5 Mg PO DAILY PRN NOT GIVEN TODAY NEXT DOSE DUE: DATE: TIME: IF AND WHEN NEEDED Vitamin D-3 (Cholecalciferol (Vitamin D3)) 2,000 Unit Capsule 1,000 Unit PO DAILY LAST DOSE GIVEN: DATE: TODAY TIME: AM NEXT DOSE DUE: DATE: TOMORROW TIME: AM ALLERGIES Allergies: Coded Allergies: cimetidine (Verified Allergy, Intermediate, 07/29/21) digoxin (Verified Allergy, Intermediate, 07/29/21) duloxetine (Verified Allergy, Intermediate, 07/29/21) hydrochlorothiazide (Verified Allergy, Intermediate, 07/29/21) ibandronate sodium (Verified Allergy, Intermediate, 07/29/21) isosorbide (Verified Allergy, Intermediate, Shortness of Air, 07/29/21) levofloxacin (Verified Allergy, Intermediate, 07/29/21) levothyroxine sodium (Verified Allergy, Intermediate, 07/29/21) meloxicam (Verified Allergy, Intermediate, 07/29/21) metoclopramide (Verified Allergy, Intermediate, 10/23/13) metoprolol (Verified Allergy, Intermediate, 10/23/13) nebivolol (Verified Allergy, Intermediate, 10/23/13) nitrofurantoin (Verified Allergy, Intermediate, 07/29/21) propranolol (Verified Allergy, Intermediate, 07/29/21) ramipril (Verified Allergy, Intermediate, 07/29/21) rofecoxib (Verified Allergy, Intermediate, 07/29/21) rosuvastatin (Verified Allergy, Intermediate, 07/29/21) salsalate (Verified Allergy, Intermediate, 07/29/21) sulfamethazine (Verified Allergy, Intermediate, Anaphylaxis, 07/29/21) sulfamethoxazole (Verified Allergy, Intermediate, 07/29/21) tegaserod (Verified Allergy, Intermediate, 07/29/21) ticagrelor (Verified Allergy, Intermediate, 07/29/21) trimethoprim (Verified Allergy, Intermediate, 07/29/21) verapamil (Verified Allergy, Intermediate, 07/29/21) Sulfa (Sulfonamide Antibiotics) (Verified Allergy, Unknown, 07/29/21) yellow dye (Verified Allergy, Unknown, 07/29/21) ROS Review of Systems 14 point ROS conducted with pertinent positives noted above in HPI PHYSICAL EXAM General: Alert, Oriented X3, Cooperative, No acute distress HEENT: Atraumatic Lungs: Clear to auscultation Heart: Regular rate Abdomen: Soft, No tenderness, Other (paced ) Skin: No breakdown Neuro: Normal speech, Sensation intact Psych/Mental Status: Mental status NL, Mood NL MUSCULOSKELETAL: Osteoarthritic changes both hands VITALS Vital Signs Vital Signs Date Time Temp Pulse Resp B/P (MAP) Pulse Ox O2 Delivery O2 Flow Rate FiO2 07/30/21 04:50 97.9 70 18 122/76 (91) 95 Room Air LABS LABS Laboratory Tests Test 07/29/21 11:42 07/29/21 14:04 07/29/21 15:20 07/30/21 05:35 White Blood Count 6.3 x10^3/uL (4.0-11.0) 6.2 x10^3/uL (4.0-11.0) Red Blood Count 4.14 x10^6/uL (3.50-5.40) 4.14 x10^6/uL (3.50-5.40) Hemoglobin 12.1 g/dL (12.0-15.5) 12.1 g/dL (12.0-15.5) Hematocrit 36.3 % (36.0-47.0) 36.5 % (36.0-47.0) Mean Corpuscular Volume 88 fL (79-100) 88 fL (79-100) Mean Corpuscular Hemoglobin 29 pg (25-35) 29 pg (25-35) Mean Corpuscular Hemoglobin Concent 34 g/dL (31-37) 33 g/dL (31-37) Red Cell Distribution Width 15.0 % (11.5-14.5) 14.7 % (11.5-14.5) Platelet Count 211 x10^3/uL (140-400) 209 x10^3/uL (140-400) Neutrophils (%) (Auto) 55 % (31-73) 53 % (31-73) Lymphocytes (%) (Auto) 29 % (24-48) 30 % (24-48) Monocytes (%) (Auto) 11 % (0-9) 11 % (0-9) Eosinophils (%) (Auto) 4 % (0-3) 5 % (0-3) Basophils (%) (Auto) 1 % (0-3) 1 % (0-3) Neutrophils # (Auto) 3.5 x10^3uL (1.8-7.7) 3.3 x10^3uL (1.8-7.7) Lymphocytes # (Auto) 1.8 x10^3/uL (1.0-4.8) 1.8 x10^3/uL (1.0-4.8) Monocytes # (Auto) 0.7 x10^3/uL (0.0-1.1) 0.7 x10^3/uL (0.0-1.1) Eosinophils # (Auto) 0.3 x10^3/uL (0.0-0.7) 0.3 x10^3/uL (0.0-0.7) Basophils # (Auto) 0.1 x10^3/uL (0.0-0.2) 0.0 x10^3/uL (0.0-0.2) Sodium Level 141 mmol/L (136-145) 140 mmol/L (136-145) Potassium Level 3.7 mmol/L (3.5-5.1) 3.3 mmol/L (3.5-5.1) Chloride Level 104 mmol/L (98-107) 101 mmol/L (98-107) Carbon Dioxide Level 27 mmol/L (21-32) 31 mmol/L (21-32) Anion Gap 10 (6-14) 8 (6-14) Blood Urea Nitrogen 31 mg/dL (7-20) 26 mg/dL (7-20) Creatinine 0.9 mg/dL (0.6-1.0) 1.1 mg/dL (0.6-1.0) Estimated GFR (Cockcroft-Gault) 59.7 47.3 BUN/Creatinine Ratio 34 (6-20) 24 (6-20) Glucose Level 97 mg/dL (70-99) 132 mg/dL (70-99) Calcium Level 9.8 mg/dL (8.5-10.1) 9.7 mg/dL (8.5-10.1) Total Bilirubin 0.6 mg/dL (0.2-1.0) 0.7 mg/dL (0.2-1.0) Aspartate Amino Transf (AST/SGOT) 17 U/L (15-37) 17 U/L (15-37) Alanine Aminotransferase (ALT/SGPT) 15 U/L (14-59) 15 U/L (14-59) Alkaline Phosphatase 108 U/L (46-116) 100 U/L (46-116) Troponin I High Sensitivity 11 ng/L (4-50) 12 ng/L (4-50) 11 ng/L (4-50) Total Protein 6.3 g/dL (6.4-8.2) 6.2 g/dL (6.4-8.2) Albumin 3.6 g/dL (3.4-5.0) 3.5 g/dL (3.4-5.0) Albumin/Globulin Ratio 1.3 (1.0-1.7) 1.3 (1.0-1.7) SARS-CoV-2 Antigen (Rapid) Negative (NEGATIVE) ECHOCARDIOGRAM Echocardiogram <Conclusion> The left ventricular systolic function is normal and the ejection fraction is within normal range. The Ejection Fraction is 55%. There is normal LV segmental wall motion. There is a pacemaker lead in the right ventricle. Technically difficult study DATE: 10/18/18 1711 ASSESSMENT/PLAN Assessment/Plan 1. Chest pain, atypical; AMI ruled out 2. CAD s/p multiple PCI/stents placed in past. Follows with [facility], Edson Acosta APRN and Dr. Ortiz 3. HTN: controlled 4. HLP: ? statin intolerant, on zetia 5. SSS s/p PPM and more recent generator change (St. Norm MRI compatible device) 04/15 Recommendations Resume secondary prevention measures. Outpatient ischemic evaluation if none recently. Spoke with Hedy Acosta APRN. She will scheduled outpatient stress and followup in the near future. Supportive care ARMAND SINGLETON APRN Jul 30, 2021 08:09
--- NOTE | 2021-07-30 10:08 | HP ---
DATE OF SERVICE: 07/30/2021 ADMIT DATE: 07/29/2021 ATTENDING PHYSICIAN: Dr. Ford. CHIEF COMPLAINT: Chest pain. HISTORY OF PRESENT ILLNESS: The patient is an 86-year-old female well known to us from previous admission. She presented to the ED with a left-sided chest wall pain under her breasts starting at 9 in the morning, nonexertional. She had a fall remotely several weeks ago. She describes as tightness. There is a strong anxiety component. She does wear a nitropatch. She was brought in for evaluation. Workup in the ED showed initial enzymes to be negative. EKG is nondiagnostic. The patient does have a cardiac history. She is admitted for observation. Serial chemistries and formal Cardiology consultation. PAST MEDICAL HISTORY: Significant for permanent pacemaker, hysterectomy, known coronary artery disease with a total of 7 stents placed. Her primary dentofacial orthopedics dentist is Dr. Joseph Ortiz at [facility]. She also has hyperlipidemia and gastroesophageal reflux disease and essential hypertension. ALLERGIES: SHE HAS MULTIPLE DRUG ALLERGIES INCLUDING SULFA, CIMETIDINE, DIGOXIN, CYMBALTA, HYDROCHLOROTHIAZIDE, ISOSORBIDE MONONITRATE, LEVOFLOXACIN, SYNTHROID, MELOXICAM, METOPROLOL, NITROFURANTOIN, PROPRANOLOL, RAMIPRIL. EXACT REACTIONS WERE ALL OF THESE INTOLERANT DRUGS UNCLEAR. CURRENT MEDICATIONS: Her medication list is as follows: She was on scheduled Xanax p.r.n., Coreg 3.125 mg b.i.d., cholecalciferol, citalopram, B12, Zetia, Protonix, calcium and nitropatch daily. SOCIAL HISTORY: She is a nonsmoker, nondrinker. FAMILY HISTORY: Noncontributory. REVIEW OF SYSTEMS: She is fairly frail. She lives alone, but she has a son and a [id number] that checks in on her every day. They live close by. The [id number] works in town. There is a history of GERD. There is also history of anxiety and stress component. PHYSICAL EXAMINATION: GENERAL: When I saw her, this is a pleasant elderly female. VITAL SIGNS: Initial vital signs showed a blood pressure 131/80, pulse is 78 and regular. She was afebrile, oxygen saturation 95% on room air. HEENT: Head is without trauma. Pupils are reactive. Sclerae nonicteric. Oropharynx is clear. NECK: Supple, no bruits. LUNGS: Good breath sounds. CARDIOVASCULAR: Regular heart tones. ABDOMEN: Soft. EXTREMITIES: Without edema. NEUROLOGIC: Function focally intact. Speech is fluent. She is fully ambulatory. PERTINENT LABORATORY STUDIES: The initial cardiac enzyme was negative for coronary ischemia. White count was 6300, hemoglobin 12.1 g/dL, creatinine was 1.1 mg percent, potassium 3.7 mEq, sodium 141. ASSESSMENT: 1. This 86-year-old female has atypical chest pain, most likely GI in nature, noncardiac. 2. Known coronary artery disease with previous stents. 3. Hypertension. 4. Gastroesophageal reflux disease. 5. Essential hypertension. PLAN: 1. Observation status. 2. Serial cardiac enzymes. 3. Formal Cardiology consultation in the morning. 4. Continue home meds. GISELA DR: Charissa TID: [id number] CC: ALVIN JERRY
[2021-07-30 11:00] VITALS: BP 126/79
--- NOTE | 2021-07-30 12:22 | DS ---
DATE OF DISCHARGE: 07/30/2021 ATTENDING PHYSICIAN: Dr. Ford. FINAL DISCHARGE DIAGNOSES: 1. Chest pain, coronary ischemia ruled out. 2. Known coronary artery disease with multiple PCI and stents in the past, follows up at [facility]. 3. Essential hypertension, controlled. 4. Hyperlipidemia. 5. History of sick sinus syndrome with permanent pacemaker. 6. Gastroesophageal reflux disease. HISTORY AND PHYSICAL: The patient, age 86, has a known history of coronary artery disease with multiple stents. She presented to the ED with atypical chest pain, noncardiac in nature. She was admitted for observation and serial enzymes. PHYSICAL EXAMINATION: Please see the dictated note. PERTINENT LABORATORY AND X-RAY STUDIES: On the database. Three sets of cardiac enzymes negative for coronary ischemia. COURSE IN HOSPITAL: She was monitored. She was stable, chest pain dissipated. Formal Cardiology consultation. She will follow up with [facility]. At this time, she is discharged home with reassurance. No changes on her home meds. She should continue her scheduled alprazolam p.r.n., Coreg b.i.d., cholecalciferol, Celexa, B12, Zetia, nitropatch and Protonix doses unchanged. She will follow up with Landy Parmar her PCP as scheduled. She was discharged then from our hospital in stable condition with explicit instruction and followup care. HAILE DR: Charissa TID: [id number] CC: ALVIN JERRY
== END 2021-07-30 11:10 | disposition home or self-care (01) ==
LOC: ER 11:03 → 1 SOUTH 14:21 → INTOOBSV 14:21
PROVIDERS: ADMIT Hospitalist; ATTEND Hospitalist
DX: R07.89 Other chest pain (principal); Z20.822 Contact with and (suspected) exposure to COVID-19; I25.119 Atherosclerotic heart disease of native coronary artery with unspecified angina pectoris; I10 Essential (primary) hypertension; K21.9 Gastro-esophageal reflux disease without esophagitis; E78.00 Pure hypercholesterolemia, unspecified; E78.5 Hyperlipidemia, unspecified; F41.9 Anxiety disorder, unspecified; I49.5 Sick sinus syndrome; Z90.710 Acquired absence of both cervix and uterus; Z95.0 Presence of cardiac pacemaker; Z95.5 Presence of coronary angioplasty implant and graft; Z79.82 Long term (current) use of aspirin; W01.0XXA Fall on same level from slipping, tripping and stumbling without subsequent striking against object, initial encounter; Y92.89 Other specified places as the place of occurrence of the external cause; Y93.89 Activity, other specified; Y99.8 Other external cause status
CPT/HCPCS: 36415; 71045; 80053; 84484; 85025; 87426; 93005; 96374; 96375; 99285; G0378; J1940; J2270; U0003; G0379

== ENCOUNTER → 2021-08-21 | Outpatient (CLI) | payer MEDICARE ==
[2021-07-30 11:00] VITALS: BP 126/79
[2021-08-21 11:08] LABS: ALBUMIN 3.9 g/dL (3.4-5.0); ALBUMIN/GLOBULIN RATIO 1.3 (1.0-1.7); CALCIUM 10.1 mg/dL (8.5-10.1); CREATININE 0.9 mg/dL (0.6-1.0); GFR 59.7; TOTAL BILIRUBIN 0.7 mg/dL (0.2-1.0); TOTAL PROTEIN 6.8 g/dL (6.4-8.2)
[2021-08-21 21:00] LABS: CHOLESTEROL/HDL RATIO 3.1
== END ==
LOC: LAB 09:44
PROVIDERS: ATTEND Internal Medicine Cardiovascular Disease
DX: E78.00 Pure hypercholesterolemia, unspecified (principal)
CPT/HCPCS: 36415; 80053; 80061